=== PATIENT | female | born 1940 | race Caucasian/White ===

== ENCOUNTER 2022-06-19 11:23 | Inpatient (IN) | payer MEDICARE, SELFPAY ==
[2022-06-19] VITALS (14 sets, daily range): BP systolic 121–146; BP diastolic 64–92; PULSE 65–103; RESP 16–30; TEMP 36.9–38.1; O2SAT 89–96; BMI 20.2; BMI 20.8
--- NOTE | 2022-06-19 11:34 | ED_ITS ---
HPI - SOB/Dyspnea General: Chief Complaint: Fall Stated Complaint: Fall Time Seen by Provider: 06/19/22 11:25 Source: EMS Mode of arrival: EMS Limitations: altered mental status and other (Patient is nonverbal. Patient does follow instructions.) History of Present Illness: HPI Narrative: See nursing assessment. Patient is unable to give any history. She does follow directions low. History obtained from EMS. They report the patient has had generalized weakness increasing over the last several days. Reportedly according to EMS patient's last food intake was approximately 4 days ago. Patient had a temperature of 100.4 by EMS. Patient reportedly has been tachypneic with occasional nonproductive cough. They had difficulty obtaining pulse oximetry due to cool extremities. Their best oxygen saturation was 88% on room air. Patient is DNR according to family report. Capillary blood sugar prior to arrival was 158. Patient denies any pain. Patient denies any pain to the head chest or abdomen. She denies any pain in her extremities. According to EMS patient was found in bed and was unable to get out of bed without their assistance. Patient has had a couple falls recently due to generalized weakness. Patient reportedly lives alone. Past medical history includes hypertension. Medications include lisinopril HCTZ combination, Tylenol. Reportedly patient has no allergies to medications. Associated symptoms: Reports dizziness, extremity pain and fever(s); Deny abdominal pain, chest pain, nausea, palpitations or vomiting Treatment prior to arrival: other (Patient received normal saline 150 cc total volume prior to arrival) Review of Systems Const: Reports: fever(s), fatigue and malaise; Denies: chills Eyes: Denies: change in vision ENMT: Denies: throat pain Card: Denies: chest pain or palpitations Resp: Denies: dyspnea or wheezing GI: Denies: abdominal pain, nausea or vomiting : Denies: flank pain Musc: Reports: extremity pain and joint pain; Denies: neck pain, back pain, extremity swelling or joint swelling Skin/Breast: Denies: rash or pruritus Neuro: Reports: difficulty walking, dizziness and other (Generalized weakness); Denies: headache(s) or numbness in extremities Baron/Lymph: Denies: enlarged lymph nodes PFS ED PFSH: Medical History Allergic rhinitis History of hip fracture Surgical History H/O tubal ligation Family History Father Lung cancer Mother Cancer Sister Multiple sclerosis Brother Diabetes Social History (Updated 06/19/22 @ 15:17 by Juan F Thomas MD) Smoking and tobacco status: never smoked Lives independently: No Marital status: / Supplemental [facility] Information: Possible history includes hypertension. Physical Exam Const: COMMON NORMALS: alert (Patient is awake. However, patient is nonverbal.) EXAM LIMITATIONS: altered mental status GENERAL APPEARANCE: cooperative OTHER: She does shake her head for yes or no. Severe general malaise. Mild tachypnea HENMT: COMMON NORMALS: normocephalic and atraumatic HEAD & SCALP: normocephalic and atraumatic FACE & SINUS: normal facial exam OTHER: Membranes are dry Eye: COMMON NORMALS: EOMs intact bilaterally OTHER: Bilateral pupils reactive to direct and indirect light. Right pupil is approximately 5 to 6 mm in diameter. Left pupil is approximately 3 to 4 mm diameter. Patient denies any change in vision. Neck/C-Spine: COMMON NORMALS: full ROM, no lymphadenopathy, supple and no meningeal signs GENERAL: Yes normal visual inspection Lymph: LYMPHATIC: no lymphadenopathy noted Chest: COMMONS NORMALS: normal inspection of the chest and normal palpation of entire chest wall CHEST: No Ecchymosis present and No rash Resp: AUSCULTATION: other (Mild crackles left base. Otherwise clear; mild tachypnea) Cardio: COMMON NORMALS: regular rhythm and Peripheral pulses 2+ throughout JUGULAR VENOUS DISTENTION: no JVD RATE: tachycardic RHYTHM: regular rhythm PERIPHERAL PULSES: Peripheral pulses 2+ throughout OTHER: Mild tachycardia. No murmurs heard. GI: COMMON NORMALS: Normal to inspection, nondistended, normoactive bowel sounds present and non-tender : COMMON NORMALS: Yes no CVA tenderness BLADDER/KIDNEY EXAM: Yes no CVA tenderness Back/Pelvis: COMMON NORMALS: no CVA tenderness Extremity: COMMON NORMALS: normal to inspection and full ROM; negative for capillary refill normal OTHER: Capillary refill approximately 3 to 4 seconds. However, extremities are somewhat cool. Neuro: COMMON NORMALS: CN's II-XII intact bilaterally, no focal motor deficits and no sensory deficits noted SENSORIUM/ORIENTATION: Yes alert (Patient is awake. However, patient is nonverbal.) MENINGEAL SIGNS: Yes no meningeal signs Psych: OTHER: Patient is awake. She is nonverbal. She is able to move all her extremities. However, she has severe generalized weakness. She does follow commands. Skin: COMMON NORMALS: no rashes or lesions noted and no wounds GENERAL SKIN EXAM: no rashes or lesions noted Course Vital Signs: Vital signs: Vital Signs Pulse Rate 95 06/19/22 15:00 Respiratory Rate 27 H 06/19/22 15:00 Blood Pressure 143/88 06/19/22 15:00 Pulse Oximetry 89 L 06/19/22 11:40 MDM - SOB/Dyspnea Medical Decision Making Likely sepsis. Probably dehydration. Fluid bolus has been initiated greater than 30 cc/kg and Rocephin 2 g IV to meet sepsis protocol. 1230: Granddaughter has arrived. Granddaughter states the patient does live with her. Patient does not live alone. She reports patient started having nausea vomiting proximal a week ago. She states she stopped eating solid food about 5 days ago. She has been drinking boost and Pedialyte since then. She mackey s had increased generalized weakness over the past 2 days in which she would not get out of bed. Granddaughter states this morning she stopped talking to her and appeared to have increased general malaise and generalized weakness. She had less responsiveness this morning. Granddaughter does confirm that patient wishes to be DNR status. Granddaughter states the patient has been taking her medications daily. 1326: Discussed case with hospitalist Dr. Thomas. He has patient be admitted to the floor. He also asked that gallbladder ultrasound be done due to her elevated liver enzymes and to rule out cholecystitis. 1540: Patient reassessed. Patient is more alert now. She is still nonverbal. She is much more awake. Cap refill less than 2 seconds now. Telemetry shows heart rate 103 blood pressure 156/82 pulse oximetry 96% respiratory rate 26/min Gallbladder ultrasound showed cholelithiasis but no cholecystitis. Lab Data 06/19/22 11:30 06/19/22 11:30 Labs/Radiology: Radiology Impressions Chest X-Ray 06/19/22 11:35 Impression: Right lower lobe patchy opacity which may represent atelectasis, effusion and/or pneumonia. Head CT 06/19/22 11:40 Impression: Moderate cerebral atrophy. Gallbladder Ultrasound 06/19/22 13:28 Impression: Cholelithiasis. Laboratory Results WBC 18.0 10^3/uL (4.0-10.0) H 06/19/22 11:30 RBC 3.70 10^6/uL (4.1-5.3) L 06/19/22 11:30 Hgb 12.3 g/dL (11.5-15.3) 06/19/22 11:30 Hct 36.6 % (37.0-47.0) L 06/19/22 11:30 MCV 98.9 fl (81-99) 06/19/22 11:30 MCH 33.2 pg (28.0-34.0) 06/19/22 11:30 MCHC 33.6 g/dL (30.0-36.0) 06/19/22 11:30 RDW 12.7 % (12.1-15.1) 06/19/22 11:30 Plt Count 324 10^3/cmm (130-400) 06/19/22 11:30 MPV 11.5 fL (7.4-10.4) H 06/19/22 11:30 Neut % (Auto) 96.5 % 06/19/22 11:30 Lymph % (Auto) 1.9 % 06/19/22 11:30 Andrew % (Auto) 0.8 % 06/19/22 11:30 Eos % (Auto) 0.0 % 06/19/22 11:30 Baso % (Auto) 0.1 % 06/19/22 11:30 Neut # (Auto) 17.40 10^3/uL (1.8-7.7) H 06/19/22 11:30 Lymph # (Auto) 0.4 10^3/uL (0.8-4.8) L 06/19/22 11:30 Andrew # (Auto) 0.2 10^3/uL (0.2-0.9) 06/19/22 11:30 Eos # (Auto) 0.0 10^3/uL (0.0-0.8) 06/19/22 11:30 Baso # (Auto) 0.0 10^3/uL (0.0-0.1) 06/19/22 11:30 Nucleated RBC % (auto) 0 % 06/19/22 11:30 Nucleated RBCs # 0.0 /100WBC 06/19/22 11:30 Specimen Type Arterial 06/19/22 12:36 Sample Site Brachial, left 06/19/22 12:36 ABG pH 7.52 (7.35-7.45) H 06/19/22 12:36 ABG pCO2 35.1 mmHg (35-45) 06/19/22 12:36 ABG pO2 72.3 mmHg (80.0-100.0) L 06/19/22 12:36 ABG HCO3 28.5 mmol/L (22-26) H 06/19/22 12:36 ABG Base Excess 5.4 mmol/L (-2.0-2.0) H 06/19/22 12:36 Sam Test N/a 06/19/22 12:36 Hematocrit 32.5 % (37-47) L 06/19/22 12:36 O2 Delivery Device Nc 06/19/22 12:36 O2 Liters/Min 4.0 % 06/19/22 12:36 FiO2 36.0 % 06/19/22 12:36 Enterprise Resource Planner ID Amh 06/19/22 12:36 Sodium 144 mmol/L (136-145) 06/19/22 11:30 Potassium 2.9 mmol/L (3.5-5.1) L 06/19/22 11:30 Chloride 96 mmol/L (98-107) L 06/19/22 11:30 Carbon Dioxide 27 mmol/L (22-29) 06/19/22 11:30 Anion Gap 23.9 (5-19) H 06/19/22 11:30 BUN 94 mg/dL (8-23) H* 06/19/22 11:30 Creatinine 1.8 mg/dL (0.5-0.9) H 06/19/22 11:30 GFR Calculation Not Reportable 06/19/22 11:30 Glucose 118 mg/dL (65-115) H 06/19/22 11:30 Calculated Osmolality 328 mOsm/kg (285-295) H 06/19/22 11:30 Lactic Acid 5.4 mmol/L (0.5-2.2) H* 06/19/22 13:08 Calcium 10.8 mg/dL (8.5-10.5) H 06/19/22 11:30 Total Bilirubin 1.8 mg/dL (0.15-1.2) H 06/19/22 11:30 AST 157 U/L (0-32) H 06/19/22 11:30 ALT 124 U/L (0-33) H 06/19/22 11:30 Alkaline Phosphatase 318 U/L (35-105) H 06/19/22 11:30 Total Protein 8.2 g/dL (6.6-8.7) 06/19/22 11:30 Albumin 2.8 g/dL (3.5-5.2) L 06/19/22 11:30 Globulin 5.4 g/dL (1.3-4.6) H 06/19/22 11:30 Urine Color Yellow (Yellow) 06/19/22 12: Urine Appearance Hazy (CLEAR) A 06/19/22 12:29 Urine pH 5 (5-7) 06/19/22 12: Ur Specific [place] 1.005 (1.005-1.030) 06/19/22 12: Urine Protein 1+ (Negative) H 06/19/22 12: Urine Glucose (UA) Norm (Normal) 06/19/22 12:29 Urine Ketones Negative (Negative) 06/19/22 12: Urine Blood 3+ (Negative) H 06/19/22 12: Urine Nitrate Negative (Negative) 06/19/22 12: Urine Bilirubin Neg (Negative) 06/19/22 12:29 Urine Urobilinogen 1 mg/dL (Negative) H 06/19/22 12:29 Ur Leukocyte Esterase Negative (Negative) 06/19/22 12: Urine RBC 15-25 /hpf (0-2) H 06/19/22 12:29 Urine WBC 0-4 /hpf (0-5) H 06/19/22 12:29 Ur Squamous Epith Cells 0-4 /hpf (0-5) H 06/19/22 12: Amorphous Sediment Not Reportable 06/19/22 12:29 Urine Bacteria 4+ /hpf (NONE) H 06/19/22 12:29 Acetaminophen < 5.0 ug/mL (10-30) L 06/19/22 11:30 Hepatitis A IgM Ab Non-reactive (Nonreactive) 06/19/22 11:30 Hep Bs Antigen Non-reactive (Nonreactive) 06/19/22 11:30 Hep B Core IgM Ab Non-reactive (Nonreactive) 06/19/22 11:30 Hepatitis C Antibody Non-reactive (Nonreactive) 06/19/22 11:30 Influenza Type A Ag Negative (Negative) 06/19/22 13:20 Influenza Type B Ag Negative (Negative) 06/19/22 13:20 SARS-CoV-2 Ag (Rapid) negative (Negative) 06/19/22 13:20 Imaging Data CXR: My impression: Right lower lobe pneumonia Radiologist's impression: Ordering Provider/Ordering MD: Yadiel Vieyra MD Date of Service: 06/19/22 Procedure(s): XR chest 1V portable [id number] Accession Number(s): [id number] Report Number: [id number] WS: [email or web address] Portable AP semiupright chest, 06/19/2022 Clinical Data: Cough, tachypnea, fever Comparison: None. Findings: There is a right lower lobe patchy opacity which may represent combination of atelectasis, effusion and pneumonia. The left lung is clear. The heart is normal. The aortic arch and descending thoracic aorta show tortuosity. No pneumothorax is seen. The pulmonary vascularity is not increased. Monitor leads are on the chest wall. XR/XR chest 1V portable [id number] Impression: Right lower lobe patchy opacity which may represent atelectasis, effusion and/or pneumonia. ? ? Dictated By: Purvi Akbar MD Signed By: Purvi Akbar MD Signed Date/Time: 06/19/22 1314 DD/ 1313 CT Head: Radiologist's impression: Ordering Provider/Ordering MD: Yadiel Vieyra MD Date of Service: 06/19/22 Procedure(s): CT head wo con* 11716 Accession Number(s): [id number] Report Number: [id number] WS: [id number] CT scan of the head, 06/19/2022 Clinical Data: Altered level consciousness, recent fall Comparison: None. DLP: 1063.[address] scans at [facility] use at least one of these dose optimization techniques: automated exposure control; mA and/or kV adjustment per patient size (includes targeted exams where dose is matched to clinical indication); or iterative reconstruction. Findings: The ventricular system is moderately dilated without shift. The sulci are enlarged. No recent infarct or hemorrhage is seen. There are no abnormal intracerebral masses. The cerebellum and brainstem are not remarkable. Bony windows of the skull and skull base show no fractures or erosions. The mastoid air cells, internal auditory canals, sella turcica, intraorbital contents, and paranasal sinuses are unremarkable. CT/CT head wo con* [id number] Impression: Moderate cerebral atrophy. ? Dictated By: Purvi Akbar MD Signed By: Purvi Akbar MD Signed Date/Time: 06/19/22 1213 DD/ 1211 US: Radiologist's impression: Ordering Provider/Ordering MD: Yadiel Vieyra MD Date of Service: 06/19/22 Procedure(s): US gall bladder 13790 Accession Number(s): [id number] Report Number: [id number] WS: [email or web address] Gallbladder and right upper quadrant ultrasound, 06/19/2022 Clinical Data: Elevated liver enzymes, rule out cholecystitis, fever Comparison: None. Findings: The gallbladder shows numerous small stones. The wall measures 0.2 cm with no pericholecystic fluid. The common bile duct is 0.33 cm and there are no intrahepatic ductal abnormalities. Liver shows no cysts, masses or dilated intrahepatic ducts. Normal portal venous flow is noted. The pancreas is not obscured by overlying bowel gas and no cyst, pseudocyst, or evidence of pancreatitis is noted. Right kidney measures 9.6 cm and no cyst, masses or hydronephrosis can be seen. The aorta and inferior vena cava show no vascular abnormalities. US/US gall bladder [id number] Impression: Cholelithiasis. ? Dictated By: Purvi Akbar MD Signed By: Purvi Akbar MD Signed Date/Time: 06/19/22 1511 DD/ 1508 EKG Data EKG 1: I personally reviewed and interpreted this EKG as follows: EKG Interpretation Date: 06/19/22 EKG interpretation time: 11:44 Prior EKG tracings: not available for review Interpretation: If she shows sinus tachycardia heart rate 103. Left atrial enlargement. Normal axis. Normal QRS. Normal ST segment. Normal MA interval, QT interval .348 seconds ABG Data ABG Interpretation 1: ABG results: Respiratory alkalosis Critical Care Time Critical Care Time: Critical Care Time: Yes Total Critical Care Time: 70 Attestation: See orders. Discharge Plan Discharge Patient Disposition: Admitted As Inpatient Clinical Impression: Acute kidney injury, Chronic hypokalemia, Transaminitis, Community acquired pneumonia of right lower lobe of lung Sepsis Qualifiers: Sepsis type: sepsis due to unspecified organism Sepsis acute organ dysfunction status: with acute organ dysfunction Severe sepsis acute organ dysfunction type: acute renal failure Acute renal failure type: unspecified Severe sepsis shock status: without septic shock Qualified Code(s): A41.9 - Sepsis, unspecified or ganism Urinary tract infection Qualifiers: Urinary tract infection type: site unspecified Hematuria presence: without hematuria Qualified Code(s): N39.0 - Urinary tract infection, site not specified Condition: Stable Coding Level of Care Code ED Systems Security Analyst for Chg Fwd History Comprehensive Exam Comprehensive Medical Decision Making High Complexity
--- NOTE | 2022-06-19 11:35 | ECG_ITS ---
[facility] Test Date: 2022-06-19 Pat Name: Farrah Velez Department: Room: Gender: Female Rfp Writer: : 1940 Requested By: Yadiel Noble Order Number: [id number] Kamaljit MD: Bharati Pulido M.D. Measurements Intervals Mary D Rate: 103 P: 61 OK: 129 QRS: 49 QRSD: 93 T: 57 QT: 348 QTc: 456 Interpretive Statements SINUS TACHYCARDIA POSSIBLE LEFT ATRIAL ENLARGEMENT [-0.1mV P-WAVE IN V1/V2] INCOMPLETE RIGHT BUNDLE BRANCH BLOCK [90+ ms QRS DURATION, TERMINAL R IN V1/V2, 40+ ms S IN I/aVL/V4/V5/V6] ABNORMAL RHYTHM ECG No previous ECG available for comparison Electronically Signed On 06-19-2022 13:06:27 EQUITY MANAGER by Bharati Pulido M.D. [email or web address]
--- NOTE | 2022-06-19 11:35 | XR_ITS ---
WS: [email or web address] Portable AP semiupright chest, 06/19/2022 Clinical Data: Cough, tachypnea, fever Comparison: None. Findings: There is a right lower lobe patchy opacity which may represent combination of atelectasis, effusion and pneumonia. The left lung is clear. The heart is normal. The aortic arch and descending t horacic aorta show tortuosity. No pneumothorax is seen. The pulmonary vascularity is not increased. M onitor leads are on the chest wall. XR/XR chest 1V portable [id number] Impression: Right lower lobe patchy opacity which may represent atelectasis, effusion and/o r pneumonia.
--- NOTE | 2022-06-19 11:40 | CT_ITS ---
WS: [email or web address] CT scan of the head, 06/19/2022 Clinical Data: Altered level consciousness, recent fall Comparison: None. DLP: 1063.[address] scans at [facility] use at least one of these dose optimization techniques: automated e xposure control; mA and/or kV adjustment per patient size (includes targeted exams where dose is matc hed to clinical indication); or iterative reconstruction. Findings: The ventricular system is moderately dilated without shift. The sulci are enlarged. No recent infarct or hemorrhage is seen. There are no abnormal intracerebral masses. The cerebellum and brainstem are not remarkable. Bony windows of the skull and skull base show no fractures or erosions. The mastoid air cells, partner marketing intern al auditory canals, sella turcica, intraorbital contents, and paranasal sinuses are unremarkable. CT/CT head wo con* 10040 Impression: Moderate cerebral atrophy.
--- NOTE | 2022-06-19 11:45 | PC.NURSE ---
discharge assessment and charges charted on 06/19/22 1144 where charted in Error wrong patient selected
[2022-06-19 11:56] LABS: Basophils % 0.1 %; Hematocrit 36.6 % (37.0-47.0); Hemoglobin 12.3 g/dL (11.5-15.3); Lymphocytes # 0.4 10^3/uL (0.8-4.8); Lymphocytes % 1.9 %; Mean Corpuscular HGB Conc 33.6 g/dL (30.0-36.0); Mean Corpuscular Hemoglobin 33.2 pg (28.0-34.0); Mean Corpuscular Volume 98.9 fl (81-99); Mean Platelet Volume 11.5 fL (7.4-10.4); Monocytes # 0.2 10^3/uL (0.2-0.9); Monocytes % 0.8 %; Neutrophils % 96.5 %; Nucleated Red Blood Cells % 0 %; Platelet Count 324 10^3/cmm (130-400); Red Cell Distribution Width 12.7 % (12.1-15.1)
[2022-06-19] MEDS: sodium chloride 0.9% 1,000 ML 999 ML IV ×2 (12:00→13:32)
--- NOTE | 2022-06-19 12:01 | PC.NURSE ---
Family stated that they got sick around the with a stomach bug. Then the patient got sick with the same thing last weakend and she slowly stopped eating and has not been herself since.
[2022-06-19 12:08] LABS: Alanine Aminotransferase 124 U/L (0-33); Albumin Level 2.8 g/dL (3.5-5.2); Alkaline Phosphatase 318 U/L (35-105); Anion Gap 23.9 (5-19); Aspartate Amino Transferase 157 U/L (0-32); Calcium 10.8 mg/dL (8.5-10.5); Carbon Dioxide 27 mmol/L (22-29); Chloride 96 mmol/L (98-107); Globulin 5.4 g/dL (1.3-4.6); Glucose 118 mg/dL (65-115); Osmolality Calculated 328 mOsm/kg (285-295); Sodium 144 mmol/L (136-145); Total Bilirubin 1.8 mg/dL (0.15-1.2); Total Protein 8.2 g/dL (6.6-8.7)
[2022-06-19 12:14] LABS: Potassium 2.9 mmol/L (3.5-5.1)
[2022-06-19 12:15] LABS: Acetaminophen < 5.0 ug/mL (10-30); Blood Urea Nitrogen 94 mg/dL (8-23)
[2022-06-19 12:18] LABS: Slide Review Slide Review Perform
[2022-06-19 12:47] LABS: ABG PCO2 35.1 mmHg (35-45); ABG PH Result 7.52 (7.35-7.45); Arterial Blood Gas Hematocrit 32.5 % (37-47); Base Excess ABG 5.4 mmol/L (-2.0-2.0); Blood Gas Operator Identificat AMH; Blood Gas Sample Site Brachial, left; Blood Gas Sample Type Arterial; HCO3 ABG 28.5 mmol/L (22-26); Oxygen Device NC; PO2 ABG 72.3 mmHg (80.0-100.0)
[2022-06-19] MEDS: cefTRIAXone 2,000 MG in sodium chloride 0.9% (plus) 50 ML 100 MG IV (12:54)
[2022-06-19 12:59] LABS: Glucose Urine UA Norm (Normal); Protein Urine 1+ (Negative); Specific Gravity, Urine 1.005 (1.005-1.030); Urine Appearance Hazy (CLEAR); Urine Color Yellow (Yellow); pH Urine 5 (5-7)
[2022-06-19 13:00] LABS: Add Urine Culture? Yes; Bacteria Urine 4+ /hpf; Bilirubin Urine Neg (Negative); Blood Urine 3+ (Negative); Ketones Urine Negative (Negative); Leukocyte Esterase Urine Negative (Negative); Nitrate Urine Negative (Negative); RBC Urine 15-25 /hpf (0-2); Squamous Epithelial Cell Urine 0-4 /hpf (0-5); Urobilinogen Urine 1 mg/dL (Negative); WBC Urine 0-4 /hpf (0-5)
[2022-06-19] MEDS: potassium chloride premix 100 ML 50 MEQ IV (13:08)
[2022-06-19 13:13] LABS: Hepatitis A Antibody IgM Non-Reactive (Nonreactive); Hepatitis B Core IgM Non-Reactive (Nonreactive); Hepatitis B Surface Antigen Non-Reactive (Nonreactive); Hepatitis C Virus Antibody Non-Reactive (Nonreactive)
--- NOTE | 2022-06-19 13:28 | US_ITS ---
WS: [email or web address] Gallbladder and right upper quadrant ultrasound, 06/19/2022 Clinical Data: Elevated liver enzymes, rule out cholecystitis, fever Comparison: None. Findings: The gallbladder shows numerous small stones. The wall measures 0.2 cm with no pericholecystic fluid. The common bile duct is 0.33 cm and there are no intrahepatic ductal abnormalities. Liver shows no cysts, masses or dilated intrahepatic ducts. Normal portal venous flow is noted. The pancreas is not obscured by overlying bowel gas and no cyst, pseudocyst, or evidence of pancreati tis is noted. Right kidney measures 9.6 cm and no cyst, masses or hydronephrosis can be seen. The aorta and inferior vena cava show no vascular abnormalities. US/US gall bladder [id number] Impression: Cholelithiasis.
[2022-06-19] MEDS: azithromycin 500 MG in sodium chloride 0.9% 250 ML 250 MG IV (13:33)
[2022-06-19 13:45] LABS: Lactic Sepsis W/Reflex 5.4 mmol/L (0.5-2.2)
[2022-06-19 13:52] LABS: SARS Covid-2 Antigen negative (Negative)
[2022-06-19 13:55] LABS: Influenza A by IFA Negative (Negative); Influenza B by IFA Negative (Negative)
[2022-06-19 15:00] LABS: Reflex Lactate Order REFLEX LACTIC ORDERD
--- NOTE | 2022-06-19 15:15 | P.HP_ITS ---
Providers/Chief Complaint Primary Care Provider: Rashawn Reed MD Chief Complaint: Fall History of Present Illness 81-year-old lady without much medical history apart from hypertension, only on hypertension medicine, over the last 4 to 5 days has gotten progressively more ill, weaker, has had chronic cough, but it has gotten worse recently, she had eventually stopped being able to get up from bed or speak, and then even unable to eat or drink so was brought to the ER for evaluation. Granddaughter reports prior to that she had a viral illness with diarrhea about a week ago. Her granddaughter denies any past history of stroke or NM. She has noticed that her mother's pupils been unequal probably for about 4-5 days, denies any prior eye surgery. CT head in ER with moderate cerebral atrophy. Patient herself is unable to provide any history, provides very limited review of systems by nodding, although not always, not always following directions. In ER she is newly requiring 3 L nasal cannula oxygen. Respiratory rate 28-30. ABG 7.5 2/35/72.3/28.5. Additional work-up in ER showed leukocytosis 18,000, potassium 2.9, chloride 96, anion gap 23.9, lactic acid 5.4, BUN 94, creatinine 1.8, calcium 10.8, T bili 1.8, AST 157, ALT 124, alk phos 318. UA with 15-25 RBC, 0- 4 WBC. 4+ bacteria. Acute hepatitis panel negative. Rapid COVID-19 antigen negative. Rapid influenza antigen negative. CT head with moderate cerebral atrophy. Chest x-ray with right lower lobe patchy opacity which may represent atelectasis, effusion and/or pneumonia. Granddaughter tells me she also has had chronic problems with one of her legs she is suspected right lower extremity which is also noted with purplish discoloration of the foot. Regards to CODE STATUS, granddaughter states that they previously had discussion she would not want aggressive care including intubation, CPR. Review of Systems General: Reports: ROS unobtainable due to medical condition and ROS unobtainable due to mental status Medications/Allergies Home Medications Medication Instructions Recorded Confirmed Last Taken Type acetaminophen 325 mg capsule 325 mg PO QID PRN Pain 06/19/22 06/19/22 Unknown History (Tylenol) calcium carbonate 600 mg-vitamin 1 tab PO BID 06/19/22 06/19/22 Unknown History D3 10 mcg (400 unit) tablet (Calcium 600 + D(3)) chlorpheniramine 2 1 tab PO Q4H PRN Congestion 06/19/22 06/19/22 Unknown History mg-pseudoephedrin 30 mg-acetaminophen 500 mg tablet dimenhydrinate 50 mg tablet 50 mg PO Q8H PRN Nausea 06/19/22 06/19/22 Unknown History (Motion Sickness) docusate sodium 100 mg tablet 100 mg PO DAILY PRN Constipation 06/19/22 06/19/22 Unknown History lisinopril 10 1 tab PO DAILY 06/19/22 06/19/22 Unknown History mg-hydrochlorothiazide 12.5 mg tablet loperamide 2 mg capsule 2 mg PO Q6H PRN Diarrhea 06/19/22 06/19/22 Unknown History sodium chloride 0.65 % nasal spray 1 spray intranasal BID PRN 06/19/22 06/19/22 Unknown History aerosol ([place] Saline) Congestion Allergies Allergy/AdvReac Type Severity Reaction Status Date / Time No Known Allergies Allergy Verified 06/19/22 11:56 PFSH Acute PFSH: Medical History Allergic rhinitis History of hip fracture Surgical History H/O tubal ligation Family History Father Lung cancer Mother Cancer Sister Multiple sclerosis Brother Diabetes Social History (Updated 06/19/22 @ 15:17 by Juan F Thomas MD) Smoking and tobacco status: never smoked Lives independently: No Marital status: / Vitals/I&O/Wt Last Vital Signs Pulse 96 06/19/22 13:30 Resp 30 H 06/19/22 13:30 BP 146/92 06/19/22 13:30 Pulse Ox 89 L 06/19/22 11:40 06/19/22 06/19/22 06/19/22 06:59 14:59 22:59 Intake Total 1050 / 1050 Balance 1050 / 1050 Weight last 48 hrs Weight 45.359 kg Physical Exam Narrative: Granddaughter at bedside. Const: COMMON NORMALS: alert OTHER: She is awake, but answers questions only sometimes and only by nodding. No nverbal. Follows some commands, but inconsistently. HENMT: COMMON NORMALS: oropharynx normal Neck/C-Spine: COMMON NORMALS: no JVD Resp: COMMON NORMALS: normal respiratory effort and clear to auscultation bilaterally AUSCULTATION: clear to auscultation bilaterally Cardio: COMMON NORMALS: no JVD, regular rhythm, S1 normal heart sound present, S2 normal heart sound present and No murmurs present (Cardio) RHYTHM: regular rhythm HEART SOUNDS: S1 normal heart sound present and S2 normal heart sound present GI: COMMON NORMALS: Normal to inspection, nondistended, normoactive bowel sounds present, Soft to palpation and non-tender PALPATION: Yes Soft to palpation Extremity: COMMON NORMALS: no joint enlargement and no pedal edema Neuro: COMMON NORMALS: moves all extremities SENSORIUM/ORIENTATION: Yes alert Skin: COMMON NORMALS: no rashes or lesions noted GENERAL SKIN EXAM: no rashes or lesions noted OTHER: BL feet cool to touch. Left foot biphasic DP and PT. Right foot monophasic DP and PT pulses present. Right foot purplish discoloration patches. Medial inferior aspect. Urinary Catheter Management: Coburn: Cath Placed During This Visit: yes Urinary Catheter Date of Insertion: 06/19/22 Urinary Catheter Time of Insertion: 12:50 Sepsis: Is patient septic: Yes Focused sepsis exam performed: Yes Data 06/19/22 11:30 06/19/22 11:30 Micro: Microbiology 06/19/22 12:50 Blood Culture - Preliminary Blood SPECIMEN COLLECTED 06/19/22 12:38 Blood Culture - Preliminary Blood SPECIMEN COLLECTED A&P Assessment and plan (1) Sepsis: Severe sepsis, lactic acidosis 5.4. With endorgan injury with KATHRYN. Leukocytosis 18. Tachycardia 95. Due to pneumonia. Possible other source. Continue empiric antibiotic coverage, will change antibiotics to cefepime, vancomycin. Assess gallbladder ultrasound. Qualifiers: Acute renal failure type: unspecified Sepsis acute organ dysfunction status: with acute organ dysfunction Sepsis type: sepsis due to unspecified organism Severe sepsis acute organ dysfunction type: acute renal failure Severe sepsis shock status: without septic shock Qualified Code(s): A41.9 - Sepsis, unspecified organism; R65.20 - Severe sepsis without septic shock; N17.9 - Acute kidney failure, unspecified (2) Pneumonia: She will not be able to provide sputum cultures. Will obtain urine bacterial antigens. MRSA PCR.. Antibiotics as above. Rapid influenza, rapid COVID-19 negative. (3) Total bilirubin, elevated: GB US. Complete antibiotics as above. On exam Bautista negative. (4) Microscopic hematuria: May be traumatic following Coburn insertion. Follow-up urine culture. Follow-up outpatient for resolution. (5) Transaminitis: Secondary to severe sepsis. Acute hepatitis panel negative. (6) Aphasia: ST evlisa.-year-old may benefit from additional evaluation by MRI, discussed with her granddaughter high suspicion that she may have had a CVA over the last week at some point. Noted anisocoria. He otherwise does appear to move all extremities. Unable to examine further as she is not cooperating enough. CT of the head was unremarkable. Start aspirin, statin. Obtain carotid duplex. ST evaluation. (7) Acute kidney injury: Secondary to severe sepsis. Also on lisinopril-HCTZ at home. Component of dehydration. Hold lisinopril-HCTZ. Received fluid challenge. Reassess renal function. (8) Anisocoria: Granddaughter states noticed 4-5 days ago. No history of eye surgery. Measured intraocular pressure 8 mmHg. Pupils reactive directly and reciprocally. He had unremarkable. Obtain carotid duplex. Follow-up with ophthalmology. (9) PAD (peripheral artery disease): Cool to touch bilateral feet, biphasic pulses PT and DP on the left. Right side monophasic PT and DP. Pulses present. Patches of discoloration of the foot. Start aspirin, statin. Will need additional outpatient evaluation. Granddaughter states she has had chronic issues with the right leg. Plan Dehydration: Progressively getting weaker at home and so could not eat or drink. Received 2 L fluid challenge. Reassess. HTN: Hold home medications for now. Hypokalemia: Replaced Attestations Medical Necessity Statement*: Admission of over 2 midnights anticipated for as sessment management of severe sepsis. Coding Level of Care Code Acute Outsole Scheduler for [facility] Fwd Exam Comprehensive Diagnoses Sepsis A41.9; R65.20; N17.9 Acute renal failure type: unspecified Sepsis acute organ dysfunction status: with acute organ dysfunction Sepsis type: sepsis due to unspecified organism Severe sepsis acute organ dysfunction type: acute renal failure Severe sepsis shock status: without septic shock Pneumonia J18.9 Total bilirubin, elevated R17 Microscopic hematuria R31.29 Transaminitis R74.01 Aphasia R47.01 Acute kidney injury N17.9 Anisocoria H57.02 PAD (peripheral artery disease) I73.9
--- NOTE | 2022-06-19 15:41 | USR_ITS ---
PROCEDURE INFORMATION: Exam: US Duplex Bilateral Extracranial Arteries, Carotid Arteries Exam date and time: 06/19/2022 5:39 PM Age: 81 years old Clinical indication: Speech disturbance; Aphasia; Additional info: Aphasia, anisocoria TECHNIQUE: Imaging protocol: Real-time Duplex ultrasound scan of the bilateral carotid and vertebral arteries combining carmona scale, color Doppler and spectral waveform analysis. Bilateral exam. Exam focused on the carotid arteries. COMPARISON: CT head wo con* [id number] 06/19/2022 12:03 PM FINDINGS: Right common carotid artery: Unremarkable. No occlusion or stenosis. Waveforms are normal. Right internal carotid artery: Proximal calcified plaque. No elevated velocity. Waveforms are normal. Right ICA/CCA ratio: Within normal limits. Right external carotid artery: No stenosis in the origin. Right vertebral artery: Unremarkable. Antegrade flow. Left common carotid artery: Unremarkable. No occlusion or stenosis. Waveforms are normal. Left internal carotid artery: Proximal calcified plaque. No elevated velocity. Waveforms are normal. Left ICA/CCA ratio: Within normal limits. Left external carotid artery: No stenosis in the origin. Left vertebral artery: Unremarkable. Antegrade flow. US/CV carotid duplex BI* [id number] IMPRESSION: 1. Mild calcified plaque in the proximal internal carotid arteries with less than 50% stenosis based on SRU criteria. REFERENCES: SRU CRITERIA. The degree of internal carotid artery stenosis is based on criteria defined by the Society of Radiologists in Ultrasound (SRU). Normal is no stenosis. Mild is less than 50% stenosis. Moderate is 50-69% stenosis. Severe is greater than 69% stenosis to near occlusion. Near occlusion is a markedly narrowed lumen. Total occlusion is no detectable patent lumen.
[2022-06-19 16:46] LABS: Lactic Acid level (Lactate) 2.2 mmol/L (0.5-2.2)
[2022-06-19] MEDS: dextrose 5%-sod chloride 0.45% 1,000 ML 125 ML IV (17:00)
[2022-06-19] MEDS: pantoprazole 40 mg SDV IVP (17:06)
[2022-06-19] MEDS: enoxaparin 40 mg/0.4 mL Syringe SUBCUT (17:09)
[2022-06-19] MEDS: vancomycin 500 MG in sodium chloride 0.9% (plus) 100 ML 200 MG IV (17:13)
[2022-06-19] MEDS: cefepime 1,000 MG in sodium chloride 0.9% (plus) 50 ML 100 MG IV (17:52)
[2022-06-20] VITALS (8 sets, daily range): BP systolic 137–170; BP diastolic 69–82; PULSE 77–99; RESP 16–26; TEMP 36.7–37.2; O2SAT 90–98
[2022-06-20] MEDS: cefepime 1,000 MG in sodium chloride 0.9% (plus) 50 ML 100 MG IV ×2 (04:46→15:40)
[2022-06-20 06:06] LABS: Basophils % 0.1 %; Hematocrit 29.2 % (37.0-47.0); Hemoglobin 9.9 g/dL (11.5-15.3); Lymphocytes # 0.3 10^3/uL (0.8-4.8); Lymphocytes % 2.5 %; Mean Corpuscular HGB Conc 33.9 g/dL (30.0-36.0); Mean Corpuscular Hemoglobin 33.7 pg (28.0-34.0); Mean Corpuscular Volume 99.3 fl (81-99); Mean Platelet Volume 11.3 fL (7.4-10.4); Monocytes # 0.2 10^3/uL (0.2-0.9); Monocytes % 1.2 %; Neutrophils # 12.82 10^3/uL (1.8-7.7); Neutrophils % 95.2 %; Nucleated Red Blood Cells % 0.1 %; Platelet Count 289 10^3/cmm (130-400); Red Blood Count 2.94 10^6/uL (4.1-5.3); Red Cell Distribution Width 12.9 % (12.1-15.1); White Blood Count 13.5 10^3/uL (4.0-10.0)
[2022-06-20 07:08] LABS: Alanine Aminotransferase 72 U/L (0-33); Albumin Level 1.8 g/dL (3.5-5.2); Alkaline Phosphatase 196 U/L (35-105); Anion Gap 14.3 (5-19); Aspartate Amino Transferase 110 U/L (0-32); Blood Urea Nitrogen 63 mg/dL (8-23); Calcium 8.7 mg/dL (8.5-10.5); Carbon Dioxide 26 mmol/L (22-29); Chloride 111 mmol/L (98-107); Globulin 4.1 g/dL (1.3-4.6); Glucose 150 mg/dL (65-115); Osmolality Calculated 329 mOsm/kg (285-295); Sodium 149 mmol/L (136-145); Total Bilirubin 0.8 mg/dL (0.15-1.2); Total Protein 5.9 g/dL (6.6-8.7)
[2022-06-20] MEDS: dextrose 5%-sod chloride 0.45% 1,000 ML 125 ML IV (07:13)
[2022-06-20 07:34] LABS: Potassium 2.3 mmol/L (3.5-5.1)
[2022-06-20] MEDS: aspirin 300 mg Supp PR (09:03)
[2022-06-20 09:17] LABS: Bacillus cereus group Not Detected (NOT DETECT); Bacillus subtillis group Not Detected (NOT DETECT); Corynebacterium Not Detected (NOT DETECT); Cutibacterium acnes (P.acnes) Not Detected (NOT DETECT); Enterococcus Not Detected (NOT DETECT); Enterococcus faecalis Not Detected (NOT DETECT); Enterococcus faecium Not Detected (NOT DETECT); Lactobacillus species Not Detected (NOT DETECT); Listeria Not Detected (NOT DETECT); Listeria monocytogenes Not Detected (NOT DETECT); Micrococcus Not Detected (NOT DETECT); Pan Candida Not Detected (NOT DETECT); Pan Gram-Negative Not Detected (NOT DETECT); Staphylococcus epidermidis Not Detected (NOT DETECT); Staphylococcus lugdunensis Not Detected (NOT DETECT); Staphylococcus species Not Detected (NOT DETECT); Streptococcus agalactiae Not Detected (NOT DETECT); Streptococcus anginosus group Not Detected (NOT DETECT); Streptococcus pneumoniae Detected (NOT DETECT); Streptococcus pyogenes Not Detected (NOT DETECT); Streptococcus species Detected (NOT DETECT)
[2022-06-20] MEDS: lidocaine 1% 5 ML in potassium chloride premix 100 ML 25 ML IV (11:28)
[2022-06-20] MEDS: pantoprazole 40 mg SDV IVP (15:47)
[2022-06-20] MEDS: enoxaparin 40 mg/0.4 mL Syringe SUBCUT (15:47)
--- NOTE | 2022-06-20 20:22 | P.PN_ITS ---
Subjective Subjective: Today she is more alert. Responding to my questions. Denies pain or discomfort. Denies headache. Does not always answer, does not always follow directions. Vitals/I&O/Wt Last Vital Signs Temp 98.1 F 06/20/22 16:00 Pulse 87 06/20/22 20:12 Resp 16 06/20/22 20:12 BP 151/79 06/20/22 16:00 Pulse Ox 96 06/20/22 20:12 O2 Del Method 06/20/22 20:12 O2 Flow Rate 3 06/20/22 20:12 06/20/22 06/20/22 06/20/22 06:59 14:59 22:59 Intake Total 20 / 2570 1050 / 1050 155 / 1205 Output Total 1550 / 1550 Balance -1530 / 1020 1050 / 1050 155 / 1205 Weight last 48 hrs Weight 50.666 kg Weight 51.619 kg Weight 45.359 kg Physical Exam Narrative: Family at bedside. Const: COMMON NORMALS: alert OTHER: She is awake, but answers some questions. HENMT: COMMON NORMALS: oropharynx normal Eye: OTHER: Yesterday anisocoria, R>L, reactive. Neck/C-Spine: COMMON NORMALS: no JVD Resp: COMMON NORMALS: normal respiratory effort and clear to auscultation bilaterally AUSCULTATION: clear to auscultation bilaterally Cardio: COMMON NORMALS: no JVD, regular rhythm, S1 normal heart sound present, S2 normal heart sound present and No murmurs present (Cardio) RHYTHM: regular rhythm HEART SOUNDS: S1 normal heart sound present and S2 normal heart sound present GI: COMMON NORMALS: Normal to inspection, nondistended, normoactive bowel sounds present, Soft to palpation and non-tender PALPATION: Yes Soft to palpation Extremity: COMMON NORMALS: no joint enlargement and no pedal edema Neuro: COMMON NORMALS: moves all extremities SENSORIUM/ORIENTATION: Yes alert OTHER: Right lower extremity drift. Both lower extremities weak dropping to bed, but right side without effort against gravity. Skin: COMMON NORMALS: no rashes or lesions noted GENERAL SKIN EXAM: no rashes or lesions noted OTHER: BL feet cool to touch. Left foot biphasic DP and PT. Right foot monophasic DP and PT pulses present. Right foot purplish discoloration patches. Medial inferior aspect. Urinary Catheter Management: Coburn: Cath Placed During This Visit: yes Reason for Continuing Indwelling Catheter: Acute Urinary Retention or Obstruction Urinary Catheter Date of Insertion: 06/19/22 Urinary Catheter Time of Insertion: 12:50 Data 06/20/22 05:27 06/20/22 06:31 Micro: Microbiology 06/19/22 12:38 Blood Culture - Preliminary Blood NEGATIVE TO DATE 06/19/22 12:29 Urine Culture - Preliminary Urine,Clean Catch 06/19/22 12:50 Blood Culture - Preliminary Blood Streptococcus pneumoniae 06/19/22 18:00 MRSA Culture - Final Nose A&P Assessment and plan (1) Sepsis: Discussed with family reported gram-positive bacteria on gram stain. Culture appears to be coming back with strep pneumo. Suspect secondary to pneumonia. Improving. Leukocytosis improving. Tachycardia resolved. Mental status im proving. Transaminitis improving. Renal function improving. Change cefepime to ceftriaxone with next dose. MRSA PCR negative. Stop vancomycin. Cholelithiasis on gallbladder ultrasound. Urine cultures so far without growth. Qualifiers: Acute renal failure type: unspecified Sepsis acute organ dysfunction status: with acute organ dysfunction Sepsis type: sepsis due to unspecified organism Severe sepsis acute organ dysfunction type: acute renal failure Severe sepsis shock status: without septic shock Qualified Code(s): A41.9 - Sepsis, unspecified organism; R65.20 - Severe sepsis without septic shock; N17.9 - Acute kidney failure, unspecified (2) Pneumonia: Complicated pneumonia with strep pneumo bacteremia. Continue ceftriaxone. Assess valves on limited TTE. She will not be able to provide sputum cultures. Pending urine bacterial antigens. Antibiotics as above. Rapid influenza, rapid COVID-19 negative. (3) Total bilirubin, elevated: GB US with cholelithiasis. Complete antibiotics as above. On exam Bautista negative. (4) Microscopic hematuria: May be traumatic following Coburn insertion. Follow-up urine culture. Follow-up outpatient for resolution. (5) Transaminitis: Secondary to severe sepsis. Acute hepatitis panel negative. (6) Aphasia: Dysphagia, aphasia, discussed with family possibility of CVA. Would benefit from MRI at some point. For now continue reassessment with ST as did not do well today, not safe for oral intake. He is able to participate a bit better, noted right side drift. Continue aspirin CA. PT, OT. CT of the head was unremarkable. Start aspirin, statin. Carotid duplex with less than 50% stenosis in the proximal internal carotid arteries. Mild plaque. (7) Acute kidney injury: Improving with improving sepsis, dehydration. Hold lisinopril-HCTZ. Received fluid challenge. Reassess renal function. (8) Anisocoria: Resolved. Does appear to have worse visual acuity on the right. Chronicity of the problem is unknown. She does not seem to notice it. Should follow-up with ophthalmology. Granddaughter states noticed 4-5 days ago. No history of eye surgery. Measured intraocular pressure 8 mmHg. Pupils reactive directly and reciprocally. He had unremarkable. Obtain carotid duplex. (9) PAD (peripheral artery disease): Cool to touch bilateral feet, biphasic pulses PT and DP on the left. Right side monophasic PT and DP. Pulses present. Patches of discoloration of the foot. Start aspirin, statin. Will need additional outpatient evaluation. Granddaughter states she has had chronic issues with the right leg. Plan Dehydration: Progressively getting weaker at home and so could not eat or drink. Received 2 L fluid challenge. Reassess. HTN: Hold home medications for now. Hypokalemia: Additional replacement given, check magnesium. Generalized weakness: Some improvement with improving sepsis. Continue treatment of pneumonia. PT, OT. Attestations Medical Necessity Statement*: Continue admission for assessment and management of improving sepsis, complicated pneumonia with strep pneumo bacteremia, severe electrolyte deficiency, aphasia, dysphagia, unable to tolerate any oral intake currently. Coding Level of Care Code Acute Professor Of Finance for [facility] Diagnoses Sepsis A41.9; R65.20; N17.9 Acute renal failure type: unspecified Sepsis acute organ dysfunction status: with acute organ dysfunction Sepsis type: sepsis due to unspecified organism Severe sepsis acute organ dysfunction type: acute renal failure Severe sepsis shock status: without septic shock Pneumonia J18.9 Total bilirubin, elevated R17 Microscopic hematuria R31.29 Transaminitis R74.01 Aphasia R47.01 Acute kidney injury N17.9 Anisocoria H57.02 PAD (peripheral artery disease) I73.9
[2022-06-21] VITALS (14 sets, daily range): BP systolic 98–151; BP diastolic 65–81; PULSE 81–103; RESP 16–22; TEMP 36.6–37.7; O2SAT 94–99
[2022-06-21] MEDS: cefepime 1,000 MG in sodium chloride 0.9% (plus) 50 ML 100 MG IV (03:53)
[2022-06-21] MEDS: cefTRIAXone 2,000 MG in sodium chloride 0.9% (plus) 50 ML 100 MG IV ×2 (04:00→15:12)
[2022-06-21 04:41] LABS: Hematocrit 22.1 % (37.0-47.0); Mean Corpuscular HGB Conc 31.7 g/dL (30.0-36.0); Mean Corpuscular Hemoglobin 33.2 pg (28.0-34.0); Mean Corpuscular Volume 104.7 fl (81-99); Mean Platelet Volume 10.9 fL (7.4-10.4); Platelet Count 277 10^3/cmm (130-400); Red Blood Count 2.11 10^6/uL (4.1-5.3); Red Cell Distribution Width 13.1 % (12.1-15.1); White Blood Count 14.7 10^3/uL (4.0-10.0)
[2022-06-21 05:00] LABS: Alanine Aminotransferase 184 U/L (0-33); Albumin Level 1.8 g/dL (3.5-5.2); Alkaline Phosphatase 230 U/L (35-105); Anion Gap 13.5 (5-19); Aspartate Amino Transferase 377 U/L (0-32); Blood Urea Nitrogen 56 mg/dL (8-23); Calcium 8.2 mg/dL (8.5-10.5); Carbon Dioxide 25 mmol/L (22-29); Chloride 109 mmol/L (98-107); Globulin 3.4 g/dL (1.3-4.6); Glucose 184 mg/dL (65-115); Magnesium 1.8 mg/dL (1.7-2.3); Osmolality Calculated 320 mOsm/kg (285-295); Sodium 145 mmol/L (136-145); Total Bilirubin 0.6 mg/dL (0.15-1.2); Total Protein 5.2 g/dL (6.6-8.7)
[2022-06-21 05:13] LABS: Potassium 2.5 mmol/L (3.5-5.1)
[2022-06-21 05:28] LABS: Absolute Segmented Neutrophil 12.3 10/cmm (1.6-7.1); Band Neutrophils Absolute 1.6 10^3/cmm (0.0-1.2); Eosinophils 0 %; Lymphocytes 4 %; Lymphocytes Absolute 0.6 10^3/cmm (1.2-3.4); Monocytes Absolute 0.1 10^3/cmm (0.1-0.6); Segmented Neutrophils 84 %; Total Cells Counted 100 (0-100)
[2022-06-21 05:29] LABS: Macrocytosis 1+; Platelet Estimate Normal (Normal); Toxic Granulation 1+; Toxic Vacuolation 1+
--- NOTE | 2022-06-21 06:00 | USCV_ITS ---
Farrah eVlez Age: 81 Gender: F : 1940 Exam Date: 06/21/2022 12:28 Ordering Phys: Juan F Thomas MD Technologist: NESTOR Exam Location: [facility] [place] Indication: valves BP: 98 / 65 HR: 96 Rhythm: Sinus Technical Quality: Adequate MEASUREMENTS (Male / Female) Normal Values 2D ECHO LV Diastolic Diameter PLAX 3.3 cm 4.2 - 5.9 / 3.9 - 5.3 cm LV Systolic Diameter PLAX 2.5 cm IVS Diastolic Thickness 0.6 cm 0.6 - 1.0 / 0.6 - 0.9 cm IVS Systolic Thickness 0.9 cm LVPW Diastolic Thickness 0.7 cm 0.6 - 1.0 / 0.6 - 0.9 cm LVPW Systolic Thickness 0.9 cm LVOT Diameter 1.9 cm LV Ejection Fraction 2D Teich 51.0 % LV Ejection Fraction MOD 2C 58.8 % LV Ejection Fraction 2C AL 59.9 % LA Diameter 2.2 cm IVC Diameter 2.0 cm M-MODE Aortic Annulus Diameter 1.5 cm LA Ao Ratio MM 1.5 MV E Point Septal Separation 0.2 cm DOPPLER AV Peak Velocity 152.0 cm/s LVOT Peak Velocity 119.0 cm/s AV Area Cont Eq vti 2.4 cm squared AV Area Cont Eq pk 2.3 cm squared MV Area PHT 5.0 cm squared Mitral E to A Ratio 0.6 MV E' Velocity 36.5 cm/s Mitral E to MV E' Ratio 5.8 Mitral E to LV E' Lateral Ratio 5.5 Mitral E to LV E' Septal Ratio 6.1 TR Peak Velocity 271.0 cm/s TR Peak Gradient 29.4 mmHg TV Peak E Velocity 65.0 cm/s PV Peak Velocity 105.0 cm/s FINDINGS Left Ventricle Normal left ventricular size, systolic function and wall thickness, with no regional wall motion abnormalities. Left ventricular ejection fraction is estimated at 65 %. Grade I/IV diastolic dysfunction (abnormal relaxation filling pattern), normal to mildly elevated filling pressures. Right Ventricle Normal right ventricular size and systolic function. Right Atrium The right atrium is normal in size. Left Atrium The left atrium is normal in size. Mitral Valve Structurally normal mitral valve without significant stenosis or prolapse. There is no mitral regurgitation. Aortic Valve Structurally normal aortic valve without significant sclerosis or stenosis. There is no aortic regurgitation. Tricuspid Valve Structurally normal tricuspid valve without significant stenosis or regurgitation. Pulmonary artery systolic pressure is normal. Pulmonic Valve Pulmonic valve not well visualized. Pericardium Normal pericardium without effusion. Aorta Normal ascending aorta dimension. IVC The inferior vena cava appears normal. CONCLUSIONS Normal left ventricular size, systolic function and wall thickness, with no regional wall motion abnormalities. Left ventricular ejection fraction is estimated at 65 %. Grade I/IV diastolic dysfunction (abnormal relaxation filling pattern), normal to mildly elevated filling pressures. There are no prior echocardiogram studies to compare. Dr. Rodo Casanova MD (Electronically Signed) Final Date: 21 June 2022 16:20 S
[2022-06-21] MEDS: dextrose 5%-sod chloride 0.45% 1,000 ML 125 ML IV ×2 (06:27→15:12)
[2022-06-21] MEDS: lidocaine 1% 5 ML in potassium chloride premix 100 ML 50 ML IV (09:33)
[2022-06-21] MEDS: pantoprazole 40 mg SDV IVP ×2 (09:33→20:02)
[2022-06-21 09:50] LABS: Hemoglobin 6.3 g/dL (11.5-15.3)
--- NOTE | 2022-06-21 10:02 | CTR_ITS ---
PROCEDURE INFORMATION: Exam: CT Right Lower Extremity Without Contrast, Hip Exam date and time: 06/21/2022 10:49 AM Age: 81 years old Clinical indication: Pain and injury or trauma; Fall; Blunt trauma; Hip; Right; Additional info: Fall at home, pain TECHNIQUE: Imaging protocol: CT of the Right lower extremity without contrast was performed. Exam focused on the hip. Radiation optimization: All CT scans at this facility use at least one of these dose optimization techniques: automated exposure control; mA and/or kV adjustment per patient size (includes targeted exams where dose is matched to clinical indication); or iterative reconstruction. COMPARISON: US gall bladder [id number] 06/19/2022 2:49 PM RADIATION DOSE METRICS: Total DLP (mGy-cm): 260.28 FINDINGS: Bones/joints: No acute right hip fracture identified. No hip dislocation. Osseous changes related to old right-sided pubic bone fracture. Mild degenerative changes in the pubic symphysis. Soft tissues: Normal. CT/CT hip RT wo con* [id number] IMPRESSION: 1. No acute right hip fracture identified. 2. Osseous changes related to old right-sided pubic bone fracture.
--- NOTE | 2022-06-21 10:04 | CTR_ITS ---
PROCEDURE INFORMATION: Exam: CT Abdomen And Pelvis With Contrast Exam date and time: 06/21/2022 10:55 AM Age: 81 years old Clinical indication: Abdominal tenderness; Patient HX: Blood loss; Additional info: Falls at home, anemia, assess for retroperitoneal hematoma TECHNIQUE: Imaging protocol: Computed tomography of the abdomen and pelvis with contrast. Radiation optimization: All CT scans at this facility use at least one of these dose optimization techniques: automated exposure control; mA and/or kV adjustment per patient size (includes targeted exams where dose is matched to clinical indication); or iterative reconstruction. Contrast material: OMNI 350; Contrast volume: 80 ml; Contrast route: INTRAVENOUS (IV); COMPARISON: CT hip RT wo con* [id number] 06/21/2022 10:49 AM RADIATION DOSE METRICS: Total DLP (mGy-cm): 384.74 FINDINGS: Lungs: Dense consolidation occupying the partially visualized majority of the right lower lobe. Patchy consolidation in the right middle lobe. Some poorly defined areas of prominent hypoattenuation in the posterior and lateral basal segments of the right lower lobe measuring up to 3.4 and 1.6 cm respectively concerning for pulmonary abscess. Pleural spaces: Trace left-sided pleural fluid. Coronary arteries: Moderate coronary artery calcifications noted. Liver: The liver is normal in size and contour. Gallbladder and bile ducts: The gallbladder is distended with normal wall thickness and does not demonstrate calcified gallstones. No intra- or extra-hepatic biliary ductal dilatation. Pancreas: The pancreas appears normal. Spleen: The spleen appears normal. Adrenal glands: The adrenals appear normal. Kidneys and ureters: The kidneys enhance symmetrically and empty into non-dilated ureters. Stomach and bowel: The stomach is unremarkable. The small bowel loops are not abnormally dilated. The large bowel loops are not abnormally dilated. Appendix: No signs of appendicitis. Intraperitoneal space: No retroperitoneal hematoma identified. Vasculature: The aorta is nonaneurysmal. The IVC appears normal. Lymph nodes: There are no enlarged lymph nodes. Urinary bladder: Coburn catheter noted within the urinary bladder which is non-distended. Reproductive: Unremarkable as visualized. Bones/joints: Multilevel degenerative changes in the spine. Significant compression deformity at T12 with approximately 75% height loss anteriorly. Compression deformity at L2 with a proximally 50% height loss anteriorly. Superior endplate compressive deformity at L3, with less than 25% height loss . L4 vertebral body height loss less than 25%. Grade 1 anterolisthesis of L4 on L5 and L5 on S1. Osseous changes consistent with old right pubic bone fracture. Soft tissues: Unremarkable. CT/CT abdomen pelvis w con* [id number] IMPRESSION: 1. Dense consolidation in the right lung concerning for pneumonia. Findings also concerning for possible right lower lobe pulmonary abscesses. 2. Trace left-sided pleural fluid. 3. No retroperitoneal hematoma identified. 4. Multilevel compression deformities in the lower thoracic and lumbar spine. No comparisons available. Correlate with any focal pain in this region. 5. Osseous changes consistent with old right pubic bone fracture.
[2022-06-21 10:32] LABS: Hepatitis A Antibody IgM Non-Reactive (Nonreactive); Hepatitis B Core IgM Non-Reactive (Nonreactive); Hepatitis B Surface Antigen Non-Reactive (Nonreactive); Hepatitis C Virus Antibody Non-Reactive (Nonreactive)
[2022-06-21] MEDS: iohexol 350 mg/mL 500 mL Btl (per mL) IV (11:10)
--- NOTE | 2022-06-21 12:15 | PC.OT ---
OT evaluation withheld this date. Patient's Hemoglobin level is 6.3. To attempt on a later date.
[2022-06-21] MEDS: sodium chloride 0.9% (100 ml) 100 ML (15:11)
[2022-06-21 17:19] LABS: Hematocrit 24.6 % (37.0-47.0); Hemoglobin 7.8 g/dL (11.5-15.3)
[2022-06-21] MEDS: clindamycin 600 MG/50 ML PREMIX 100 MG IV (17:47)
--- NOTE | 2022-06-21 20:12 | P.PN_ITS ---
Subjective Subjective: This morning very weak, weaker than yesterday, appears pale. Answer questions well. Vitals/I&O/Wt Last Vital Signs Temp 98.2 F 06/21/22 16:00 Pulse 97 06/21/22 16:00 Resp 19 H 06/21/22 16:00 BP 121/75 06/21/22 16:00 Pulse Ox 97 06/21/22 16:00 O2 Del Method 06/21/22 11:52 O2 Flow Rate 3 06/21/22 08:16 06/21/22 06/21/22 06/21/22 06:59 14:59 22:59 Intake Total 1257 / 1257 240 / 1497 Output Total 2400 / 2400 950 / 950 Balance -2400 / -195 1257 / 1257 -710 / 547 Weight last 48 hrs Weight 50.031 kg Weight 50.666 kg Physical Exam Narrative: Family at bedside. Const: COMMON NORMALS: alert HENMT: COMMON NORMALS: oropharynx normal Eye: OTHER: Nasal phill resolved. Neck/C-Spine: COMMON NORMALS: no JVD Resp: COMMON NORMALS: normal respiratory effort and clear to auscultation bilaterally AUSCULTATION: clear to auscultation bilaterally Cardio: COMMON NORMALS: no JVD, regular rhythm, S1 normal heart sound present, S2 normal heart sound present and No murmurs present (Cardio) RHYTHM: regular rhythm HEART SOUNDS: S1 normal heart sound present and S2 normal heart sound present GI: COMMON NORMALS: Normal to inspection, nondistended, normoactive bowel sounds present, Soft to palpation and non-tender PALPATION: Yes Soft to palpation Extremity: COMMON NORMALS: no joint enlargement and no pedal edema Neuro: COMMON NORMALS: moves all extremities SENSORIUM/ORIENTATION: Yes alert Skin: COMMON NORMALS: no rashes or lesions noted GENERAL SKIN EXAM: no rashes or lesions noted Urinary Catheter Management: Coburn: Cath Placed During This Visit: yes Reason for Continuing Indwelling Catheter: Accurate Measurement of Urinary Output in Critically Ill Patients Urinary Catheter Date of Insertion: 06/19/22 Urinary Catheter Time of Insertion: 12:50 Data 06/21/22 17:01 06/21/22 03:53 Micro: Microbiology 06/19/22 12:29 Urine Culture - Final Urine,Clean Catch Escherichia coli esbl A&P Assessment and plan (1) Acute anemia: This morning hemoglobin down to 7, repeat 6.3. Aspirin and prophylactic Lovenox had to be stopped. PPI increased to IV twice daily. Given 1 unit RBC transfusion, repeat hemoglobin up to 7.8. Hemoccult requested. CT abdomen pelvis obtained due to recent falls at home, no retroperitoneal/psoas hematoma. Also complaining of right hip pain, CT head obtained without fracture. Depending on her recovery and goals of care will need further endoscopic evaluation. (2) Sepsis: Today on additional continue to acute anemia noted to have severe necrotizing pneumonia right lower lobe with suspicion of lung abscess. Will need prolonged antibiotic course. Discussed with family. Switch from ceftriaxone to Levaquin given also has ESBL UTI. Given strep pneumo bacteremia. Added clindamycin empirically for now given still septic. MRSA PCR negative. Stop vancomycin. Cholelithiasis on gallbladder ultrasound. Urine cultures so far without growth. Qualifiers: Acute renal failure type: unspecified Sepsis acute organ dysfunction status: with acute organ dysfunction Sepsis type: sepsis due to unspecified organism Severe sepsis acute organ dysfunction type: acute renal failure Severe sepsis shock status: without septic shock Qualified Code(s): A41.9 - Sepsis, unspecified organism; R65.20 - Severe sepsis without septic shock; N17.9 - Acute kidney failure, unspecified (3) Pneumonia: Complicated pneumonia with strep pneumo bacteremia, necrotizing pneumonia, suspected lung abscesses. As above. Limited TTE obtained, normal EF, grade 1 diastolic dysfunction, valves appear normal. She will not be able to provide sputum cultures. Pending urine bacterial a ntigens. Antibiotics as above. Rapid influenza, rapid COVID-19 negative. (4) Aphasia: Persistent aphasia, dysphagia. After blood transfusion reportedly perked up some, participate with ST, but still not safe to swallow anything. Had a long discussion with grandson today, discussing goals of care. For now they want to continue aggressive medical management, we discussed option of transition to comfort care given overall poor prognosis, condition with high risk of deterioration, as well as suspected CVA, so far with aphasia and dysphagia, impairment in communication, but it appears after receiving transfusion she did wake up more, was communicating more with family. We discussed that generalized weakness certainly is contributing to her dysphagia, however, it is possible that despite becoming stronger dysphagia may not resolve if related to CVA. In that case discussed whether feeding tube would be a consideration, he stated that suspect likely she would not want 1, however, they will consider and keep in mind in case we need to return to this discussion if her dysphagia is not improving, with other option being pleasure feeds with comfort. Aspirin had to be stopped due to acute anemia. Dysphagia, aphasia, discussed with family possibility of CVA. Would benefit from MRI at some point. For now continue reassessment with ST as did not do well today, not safe for oral intake. He is able to participate a bit better, noted right side drift. PT, OT. CT of the head was unremarkable. Start aspirin, statin. Carotid duplex with less than 50% stenosis in the proximal internal carotid arteries. Mild plaque. (5) Urinary tract infection: ESBL E. coli growing on urine culture, > 100,000 CFU. Switch antibiotics to Levaquin. Qualifiers: Hematuria presence: without hematuria Urinary tract infection type: site unspecified Qualified Code(s): N39.0 - Urinary tract infection, site not specified (6) Total bilirubin, elevated: Resolved GB US with cholelithiasis. Complete antibiotics as above. On exam Bautista negative. (7) Microscopic hematuria: May be traumatic following Coburn insertion. Follow-up urine culture. Follow-up outpatient for resolution. (8) Transaminitis: Secondary to severe sepsis. Acute hepatitis panel negative. (9) Acute kidney injury: Improving with improving sepsis, dehydration. Hold lisinopril-HCTZ. Received fluid challenge. Reassess renal function. (10) Anisocoria: Resolved. Does appear to have worse visual acuity on the right. Chronicity of the problem is unknown. She does not seem to notice it. Should follow-up with ophthalmology. Granddaughter states noticed 4-5 days ago. No history of eye surgery. Measured intraocular pressure 8 mmHg. Pupils reactive directly and reciprocally. He had unremarkable. Obtain carotid duplex. (11) PAD (peripheral artery disease): Cool to touch bilateral feet, biphasic pulses PT and DP on the left. Right side monophasic PT and DP. Pulses present. Patches of discoloration of the foot. Start aspirin, statin. Will need additional outpatient evaluation. Gra nddaughter states she has had chronic issues with the right leg. Plan Dehydration: Progressively getting weaker at home and so could not eat or drink. Received 2 L fluid challenge. Reassess. HTN: Hold home medications for now. Hypokalemia: Additional replacement given, follow-up potassium. Given magnesium. Follow-up magnesium. Generalized weakness: Some improvement with improving sepsis. Continue treatment of pneumonia. PT, OT. Attestations Medical Necessity Statement*: Continue admission for assessment of management of sepsis, multifocal infection with severe necrotizing pneumonia complicated by pulmonary abscesses, strep pneumo bacteremia, as well as ESBL E. coli UTI. Aphasia, dysphagia, CVA. Acute anemia. Coding Level of Care Code Acute Party Host for [facility] Fwd Diagnoses Acute anemia D64.9 Sepsis A41.9; R65.20; N17.9 Acute renal failure type: unspecified Sepsis acute organ dysfunction status: with acute organ dysfunction Sepsis type: sepsis due to unspecified organism Severe sepsis acute organ dysfunction type: acute renal failure Severe sepsis shock status: without septic shock Pneumonia J18.9 Aphasia R47.01 Urinary tract infection N39.0 Hematuria presence: without hematuria Urinary tract infection type: site unspecified Total bilirubin, elevated R17 Microscopic hematuria R31.29 Transaminitis R74.01 Acute kidney injury N17.9 Anisocoria H57.02 PAD (peripheral artery disease) I73.9
[2022-06-21] MEDS: levofloxacin-dextrose 5 % 750 MG/150 ML PREMIX 100 MG IV (21:04)
[2022-06-22] VITALS (18 sets, daily range): BP systolic 136–160; BP diastolic 70–87; PULSE 87–101; RESP 14–25; TEMP 36.4–37.6; O2SAT 93–99
[2022-06-22] MEDS: clindamycin 600 MG/50 ML PREMIX 100 MG IV ×2 (00:34→09:40)
[2022-06-22] MEDS: dextrose 5%-sod chloride 0.45% 1,000 ML 125 ML IV ×2 (01:40→10:54)
[2022-06-22 05:46] LABS: Hematocrit 22.4 % (37.0-47.0); Hemoglobin 7.2 g/dL (11.5-15.3); Mean Corpuscular HGB Conc 32.1 g/dL (30.0-36.0); Mean Corpuscular Hemoglobin 32.3 pg (28.0-34.0); Mean Corpuscular Volume 100.4 fl (81-99); Platelet Count 312 10^3/cmm (130-400); Red Blood Count 2.23 10^6/uL (4.1-5.3); Red Cell Distribution Width 15.1 % (12.1-15.1)
[2022-06-22 06:21] LABS: Alanine Aminotransferase 94 U/L (0-33); Albumin Level 1.7 g/dL (3.5-5.2); Alkaline Phosphatase 159 U/L (35-105); Anion Gap 12.7 (5-19); Aspartate Amino Transferase 58 U/L (0-32); Blood Urea Nitrogen 39 mg/dL (8-23); Calcium 7.8 mg/dL (8.5-10.5); Carbon Dioxide 25 mmol/L (22-29); Chloride 118 mmol/L (98-107); Globulin 3.3 g/dL (1.3-4.6); Glucose 126 mg/dL (65-115); Magnesium 1.9 mg/dL (1.7-2.3); Osmolality Calculated 327 mOsm/kg (285-295); Sodium 153 mmol/L (136-145); Total Bilirubin 0.4 mg/dL (0.15-1.2)
[2022-06-22 06:25] LABS: Basophils % 0.3 %; Eosinophils % 0.1 %; Lymphocytes % 6.9 %; Monocytes # 0.7 10^3/uL (0.2-0.9); Monocytes % 4.5 %; Neutrophils # 11.72 10^3/uL (1.8-7.7)
[2022-06-22 06:27] LABS: Potassium 2.7 mmol/L (3.5-5.1)
[2022-06-22] MEDS: pantoprazole 40 mg SDV IVP ×2 (09:41→21:32)
--- NOTE | 2022-06-22 11:03 | PC.SOCIAL ---
IMM Update pg 2 of IMM updated and reviewed w/ patients granddaughter. Copy provided and Copy in chart dated, and initialed.
[2022-06-22] MEDS: ketorolac 30 mg/mL INJ IVP (12:10)
--- NOTE | 2022-06-22 12:17 | PC.OT ---
OT EVALUATION HELD TODAY DUE TO PATIENT NOT ABLE TO PARTICIPATE IN EVAL AT THIS TIME. WILL ATTEMPT AGAIN TOMORROW.
[2022-06-22 13:33] LABS: Procalcitonin 2.85 ng/mL (0-0.5)
[2022-06-22 13:41] LABS: Thyroid Stimulating Hormone 2.14 uIU/mL (0.27-4.20)
[2022-06-22 13:55] LABS: Vitamin B12 > 2000 pg/mL (232-1245)
[2022-06-22] MEDS: potassium chloride oral liq 20 mEq/15 mL UDC 40 MEQ PO (14:16)
[2022-06-22] MEDS: meropenem 1,000 MG in sodium chloride 0.9% (plus) 50 ML 100 MG IV ×2 (14:16→21:33)
[2022-06-22] MEDS: dextrose 5% 1,000 ML 125 ML IV (14:22)
[2022-06-22] MEDS: ipratropium-albuterol 3 mL Neb INHALATION ×2 (15:19→20:55)
--- NOTE | 2022-06-22 15:57 | P.PN_ITS ---
Subjective Subjective: Hospital course, labs appreciated. Examination patient lying comfortably in bed with family at bedside including patient's daughter and son. Patient is on 1 L oxygen supplementation saturating 98%. Has remained hemodynamically stable. Heart rate has remained in the low 100s. T-max in the last 24 hours 99.9 Fahrenheit. Patient appears uncomfortable, incoherent, not following commands. Patient is not able to tolerate oral medicines or diet as per nursing staff and family at bedside. Vitals/I&O/Wt Last Vital Signs Temp 99.7 F H 06/22/22 11:29 Pulse 101 H 06/22/22 15:27 Resp 25 H 06/22/22 15:19 BP 138/75 06/22/22 11:29 Pulse Ox 98 06/22/22 15:19 O2 Del Method 06/22/22 15:19 O2 Flow Rate 1 06/22/22 15:19 06/22/22 06/22/22 06/22/22 06:59 14:59 22:59 Intake Total 1050 / 2747 1000 / 1000 Output Total 50 / 1000 Balance 1000 / 1747 1000 / 1000 Weight last 48 hrs Weight 52.934 kg Weight 50.031 kg Physical Exam Narrative: Family at bedside. Const: COMMON NORMALS: alert OTHER: She is awake, but answers some questions. HENMT: COMMON NORMALS: oropharynx normal Eye: OTHER: Nasal phill resolved. Neck/C-Spine: COMMON NORMALS: no JVD Resp: COMMON NORMALS: normal respiratory effort and clear to auscultation bilaterally AUSCULTATION: clear to auscultation bilaterally Cardio: COMMON NORMALS: no JVD, regular rhythm, S1 normal heart sound present, S2 normal heart sound present and No murmurs present (Cardio) RHYTHM: regular rhythm HEART SOUNDS: S1 normal heart sound present and S2 normal heart sound present GI: COMMON NORMALS: Normal to inspection, nondistended, normoactive bowel fabby nds present, Soft to palpation and non-tender PALPATION: Yes Soft to palp ation Extremity: COMMON NORMALS: no joint enlargement and no pedal edema Neuro: COMMON NORMALS: moves all extremities SENSORIUM/ORIENTATION: Yes alert OTHER: Right lower extremity drift. Both lower extremities weak dropping to bed, but right side without effort against gravity. Skin: COMMON NORMALS: no rashes or lesions noted GENERAL SKIN EXAM: no rashes or lesions noted OTHER: BL feet cool to touch. Left foot biphasic DP and PT. Right foot monophasic DP and PT pulses present. Right foot purplish discoloration patches. Medial inferior aspect. Urinary Catheter Management: Coburn: Cath Placed During This Visit: yes Reason for Continuing Indwelling Catheter: Acute Urinary Retention or Obstruct ion Urinary Catheter Date of Insertion: 06/19/22 Urinary Catheter Time of Insertion: 12:50 Data 06/22/22 02:32 06/22/22 02:32 Micro: Microbiology 06/19/22 12:38 Blood Culture - Final Blood Streptococcus pneumoniae 06/19/22 12:50 Blood Culture - Final Blood Streptococcus pneumoniae 06/19/22 12:29 Urine Culture - Final Urine,Clean Catch Escherichia coli esbl A&P Assessment and plan (1) Sepsis: Sepsis without shock. Present on admission. Secondary to ESBL E. coli UTI along with necrotizing pneumonia most likely aspiration. Target organ dysfunction is acute encephalopathy and acute kidney injury. Blood cultures positive for Streptococcus pneumonia. Stop clindamycin, Levaquin. We will switch to meropenem which will cover both for Streptococcus pneumonia, ESBL E. coli UTI as patient remains critically sick. Keep mean artery pressure over 65. Qualifiers: Acute renal failure type: unspecified Sepsis acute organ dysfunction status: with acute organ dysfunction Sepsis type: sepsis due to unspecified organism Severe sepsis acute organ dysfunction type: acute renal failure Severe sepsis shock status: without septic shock Qualified Code(s): A41.9 - Sepsis, unspecified organism; R65.20 - Severe sepsis without septic shock; N17.9 - Acute kidney failure, unspecified (2) Pneumonia: High concerns for aspiration pneumonia with right lower lobe lung abscess. Blood culture positive Streptococcus pneumonia. Antibiotic as above. Start on DuoNebs every 6 hour. Oxygen supplementation keeping saturation over 92%. Flu swab, rapid COVID-19 negative. Qualifiers: Pneumonia type: aspiration pneumonia Aspiration pneumonia type: due to vomit Laterality: right Lung location: lower lobe of lung Qualified Code(s): J69.0 - Pneumonitis due to inhalation of food and vomit (3) Acute anemia: Hemoglobin 7.2 today. Post 1 unit blood transfusion. Stool for occult blood still pending. No reported bowel movement as per nursing staff. Could be secondary to GI loss versus acute sepsis. Start on IV iron supplementation. Check stool studies. Cannot check iron panel anymore as patient received transfusion yesterday. Check vitamin B12, folate levels. IV Protonix 40 mg twice daily. Can plan for a possibility of EGD/colonoscopy once patient becomes hemodyn amically stable and less critical. CT abdomen pelvis ruled out retroperitoneal/psoas hematoma. (4) Aphasia: Keep NPO. PT/OT/speech evaluation. Discussed in detail with family at bedside. Family and patient would have not wanted PEG tube placement for long-term nutrition. Discussed patient's aphasia could be secondary to stroke versus acute metabolic encephalopathy in setting of sepsis or hypernatremia. Plan for now is to see if patient improves within next 72 hours with appropriate treatment and if not family would want patient to be transitioned over to hospice/comfort measures. (5) Abscess of lung: (6) Acute kidney injury: Resolved. Present admission secondary sepsis and dehydration. Medical reconciliation done for nephrotoxic drugs. Monitor BMP every 12 hours. (7) Urinary tract infection: ESBL E. coli UTI. Treatment as above. Qualifiers: Hematuria presence: without hematuria Urinary tract infection type: site unspecified Qualified Code(s): N39.0 - Urinary tract infection, site not specified (8) Transaminitis: Secondary to severe sepsis. Acute hepatitis panel negative. (9) PAD (peripheral artery disease): Cool to touch bilateral feet, biphasic pulses PT and DP on the left. Right side monophasic PT and DP. Pulses present. Patches of discoloration of the foot. Start aspirin, statin. Will need additional outpatient evaluation. Granddaughter states she has had chronic issues with the right leg. (10) Acute hypernatremia: Secondary to poor oral intake. Switch to D5W with potassium at 125 cc/h. Monitor BMP daily every 12 hourly. If does not improve will plan for NG tube placement. Family is agreeable for short-term for fluid boluses without feeds. (11) Goals of care, counseling/discussion: Discussed in detail with family at bedside including son and daughter. We discussed that patient is critically sick secondary to all the above mentioned i llnesses. We discussed that if family is agreeable we will plan to change the treatment and monitor for clinical improvement within next 72 hours. If patient does not improve in the next 40 to 72 hours can plan to transition to hospice. Family is agreeable. Family is also agreeable for short-term NG tube placement for free water flushes if needed for hypernatremia. Plan CODE STATUS: DNI DNR/DNI. Protonix every 12 hourly for PUD prophylaxis SCDs for DVT prophylaxis. Pain management: IV Tylenol every 12 hourly, Dilaudid 0.2 mg every 4 hour as needed. Discharge planning: Plan to discharge home once medically stable versus with hospice depending on clinical evaluation within next 24 hours. Care discussed in detail with family at bedside multiple times.. All the questions were answered. Attestations Medical Necessity Statement*: Requires further hospitalization for management of sepsis in setting of right lower lobe lung abscess, ESBL E. coli UTI, metabolic encephalopathy in setting of hypernatremia and sepsis while stroke is ruled out Critical Care Time: The high probability of a clinically significant, sudden or life threatening deterioration of the patient's [cardiac, renal, neurological, pulmonary, goals of care discussion] system(s) required my full and direct attention, intervention and personal management. The critical care time is as shown. This time is in addition to time spent performing any reported procedures but includes the following: [x] Data and vital sign review and interpretation [x] Patient assessment, examination and intervention [x] Documentation [x] Medication orders and management Critical Care Time (min): 60 Coding Level of Care Code Acute Gliding Pilot Instructor for [facility] Fwd Diagnoses Sepsis A41.9; R65.20; N17.9 Acute renal failure type: unspecified Sepsis acute organ dysfunction status: with acute organ dysfunction Sepsis type: sepsis due to unspecified organism Severe sepsis acute organ dysfunction type: acute renal failure Severe sepsis shock status: without septic shock Pneumonia J69.0 Pneumonia type: aspiration pneumonia Aspiration pneumonia type: due to vomit Laterality: right Lung location: lower lobe of lung Acute anemia D64.9 Aphasia R47.01 Abscess of lung J85.2 Acute kidney injury N17.9 Urinary tract infection N39.0 Hematuria presence: without hematuria Urinary tract infection type: site unspecified Transaminitis R74.01 PAD (peripheral artery disease) I73.9 Acute hypernatremia E87.0 Goals of care, counseling/discussion Z71.89
[2022-06-22] MEDS: iron sucrose 200 MG in sodium chloride 0.9% (100 ml) 100 ML 220 MG IV (16:42)
[2022-06-22] MEDS: dextrose 5% + KCl 20 mEq 20 MEQ/1,000 ML BAG 125 MEQ IV (16:42)
[2022-06-22] MEDS: acetaminophen 1,000 MG/100 ML PIGGYBACK 400 MG IV (16:43)
[2022-06-22] MEDS: lidocaine 1% 5 ML in potassium chloride premix 100 ML 50 ML IV (16:52)
[2022-06-22] MEDS: sodium chloride 0.9% (100 ml) 100 ML (20:18)
[2022-06-23] VITALS (10 sets, daily range): BP systolic 136–158; BP diastolic 74–81; PULSE 87–98; RESP 16–24; TEMP 36.7–37.6; O2SAT 94–99
[2022-06-23] MEDS: acetaminophen 1,000 MG/100 ML PIGGYBACK 400 MG IV ×2 (02:41→13:44)
[2022-06-23] MEDS: ipratropium-albuterol 3 mL Neb INHALATION ×4 (03:10→21:15)
[2022-06-23] MEDS: dextrose 5% + KCl 20 mEq 20 MEQ/1,000 ML BAG 125 MEQ IV ×3 (05:31→20:48)
[2022-06-23] MEDS: meropenem 1,000 MG in sodium chloride 0.9% (plus) 50 ML 100 MG IV ×3 (05:32→22:32)
[2022-06-23 07:02] LABS: Hematocrit 25.4 % (37.0-47.0); Hemoglobin 8.2 g/dL (11.5-15.3); Mean Corpuscular HGB Conc 32.3 g/dL (30.0-36.0); Mean Platelet Volume 10.4 fL (7.4-10.4); Platelet Count 370 10^3/cmm (130-400); Red Blood Count 2.73 10^6/uL (4.1-5.3); Red Cell Distribution Width 21.5 % (12.1-15.1); White Blood Count 22.1 10^3/uL (4.0-10.0)
[2022-06-23 07:21] LABS: Alanine Aminotransferase 67 U/L (0-33); Albumin Level 1.8 g/dL (3.5-5.2); Alkaline Phosphatase 159 U/L (35-105); Anion Gap 11.9 (5-19); Aspartate Amino Transferase 48 U/L (0-32); Blood Urea Nitrogen 31 mg/dL (8-23); Calcium 7.6 mg/dL (8.5-10.5); Carbon Dioxide 25 mmol/L (22-29); Chloride 114 mmol/L (98-107); Globulin 3.4 g/dL (1.3-4.6); Glucose 114 mg/dL (65-115); Osmolality Calculated 313 mOsm/kg (285-295); Sodium 148 mmol/L (136-145); Total Bilirubin 0.9 mg/dL (0.15-1.2); Total Protein 5.2 g/dL (6.6-8.7)
[2022-06-23 07:24] LABS: Absolute Segmented Neutrophil 17.9 10/cmm (1.6-7.1); Band Neutrophils Absolute 2.2 10^3/cmm (0.0-1.2); Eosinophils 0 %; Lymphocytes 4 %; Lymphocytes Absolute 0.9 10^3/cmm (1.2-3.4); Monocytes Absolute 0.7 10^3/cmm (0.1-0.6); Segmented Neutrophils 81 %; Slide Review Slide Review Perform; Total Cells Counted 100 (0-100)
[2022-06-23 07:25] LABS: Absolute Neutrophil 20.1 10^3/cmm (1.4-6.5); Hypochromasia 1+; Platelet Estimate Normal (Normal)
[2022-06-23 07:49] LABS: Potassium 2.9 mmol/L (3.5-5.1)
[2022-06-23 08:20] LABS: Folate Level 17.9 ng/mL (4.8-37.3)
[2022-06-23] MEDS: pantoprazole 40 mg SDV IVP ×2 (08:53→20:48)
[2022-06-23] MEDS: haloperidol inj 5 mg/mL INJ 1 mL IM (09:44)
--- NOTE | 2022-06-23 10:28 | XR_ITS ---
WS: [id number] Portable AP upright chest, 06/23/2022 Clinical Data: ng tube placement verification Comparison: Portable chest, 06/19/2022 Findings: The nasogastric tube is within the esophagus and appears to end in the fundus of stomach. T he patchy right lower lobe opacity remains the same. XR/XR chest 1V portable [id number] Impression: Satisfactory placement of nasogastric tube.
[2022-06-23 14:18] LABS: Add Urine Culture? No; Add Urine Microscopic? YES; Amorphous Sediment Urine 1+ /hpf; Bacteria Urine TRACE /hpf; Bilirubin Urine Neg (Negative); Blood Urine 2+ (Negative); Glucose Urine UA Norm (Normal); Ketones Urine Negative (Negative); Leukocyte Esterase Urine Negative (Negative); Mucus Urine TRACE /hpf; Nitrate Urine Negative (Negative); Protein Urine Trace (Negative); RBC Urine 0-4 /hpf (0-2); Specific Gravity, Urine 1.015 (1.005-1.030); Squamous Epithelial Cell Urine 0-4 /hpf (0-5); Urine Appearance Clear (CLEAR); Urine Color Yellow (Yellow); Urobilinogen Urine Norm (Negative); WBC Urine 0-4 /hpf (0-5); pH Urine 5 (5-7)
--- NOTE | 2022-06-23 14:20 | PM.PN ---
Subjective Subjective: No acute events overnight. Patient today morning little more awake. Able to have slight conversation. Able to tell her name. Participated with physical therapy. Complaining of feeling weak. Continues to remain on 1 L saturating more than 95%. Has remained hemodynamically stable and afebrile. Vitals/I&O/Wt Last Vital Signs Temp 99.4 F 06/23/22 08:00 Pulse 97 06/23/22 14:18 Resp 20 H 06/23/22 14:18 BP 158/78 06/23/22 08:00 Pulse Ox 98 06/23/22 14:18 O2 Del Method 06/23/22 14:18 O2 Flow Rate 1 06/23/22 14:18 06/22/22 06/23/22 06/23/22 22:59 06:59 14:59 Intake Total 2056.667 / 3156.667 1150 / 4306.667 1400 / 1400 Output Total 1550 / 1550 400 / 1950 Balance 506.667 / 1606.667 750 / 2356.667 1400 / 1400 Weight last 48 hrs Weight 51.392 kg Weight 52.934 kg Physical Exam Narrative: Family at bedside. Const: COMMON NORMALS: alert OTHER: She is awake, but answers some questions. HENMT: COMMON NORMALS: oropharynx normal Eye: COMMON NORMALS: Equal, round and reactive pupils present, EOMs intact bilaterally and conjunctivae normal CONJUNCTIVA: Yes conjunctivae normal PUPIL: Yes Equal, round and reactive pupils present Neck/C-Spine: COMMON NORMALS: no JVD Resp: COMMON NORMALS: normal respiratory effort and clear to auscultation bilaterally AUSCULTATION: clear to auscultation bilaterally Cardio: COMMON NORMALS: no JVD, regular rhythm, S1 normal heart sound present, S2 normal heart sound present and No murmurs present (Cardio) RHYTHM: regular rhythm HEART SOUNDS: S1 normal heart sound present and S2 normal heart sound present GI: COMMON NORMALS: Normal to inspection, nondistended, normoactive bowel sounds present, Soft to palpation and non-tender PALPATION: Yes Soft to palpation Extremity: COMMON NORMALS: no joint enlargement and no pedal edema Neuro: COMMON NORMALS: moves all extremities SENSORIUM/ORIENTATION: Yes alert OTHER: Right lower extremity drift. Both lower extremities weak dropping to bed, but right side without effort against gravity. Skin: COMMON NORMALS: no rashes or lesions noted GENERAL SKIN EXAM: no rashes or lesions noted OTHER: BL feet cool to touch. Left foot biphasic DP and PT. Right foot monophasic DP and PT pulses present. Right foot purplish discoloration patches. Medial inferior aspect. Urinary Catheter Management: Coburn: Cath Placed During This Visit: yes Reason for Continuing Indwelling Catheter: Accurate Measurement of Urinary Output in Critically Ill Patients Urinary Catheter Date of Insertion: 06/19/22 Urinary Catheter Time of Insertion: 12:50 Data 06/23/22 06:39 06/23/22 06:39 Micro: Microbiology 06/22/22 06:40 Blood Culture - Preliminary Blood SPECIMEN COLLECTED 06/22/22 06:39 Blood Culture - Preliminary Blood SPECIMEN COLLECTED 06/22/22 14:35 Occult Blood (FIT) - Final Stool - Stool Aspirate 06/19/22 12:38 Blood Culture - Final Blood Streptococcus pneumoniae 06/19/22 12:50 Blood Culture - Final Blood Streptococcus pneumoniae A&P Assessment and plan (1) Sepsis: Sepsis without shock. Present on admission. Secondary to ESBL E. coli UTI along with necrotizing pneumonia most likely aspiration. Target organ dysfunction is acute encephalopathy and acute kidney injury. Blood cultures positive for Streptococcus pneumonia. Repeat blood cultures so far negative. Continue with meropenem which should cover both for E. coli and Streptococcus pneumonia. MRSA negative. Qualifiers: Acute renal failure type: unspecified Sepsis acute organ dysfunction status: with acute organ dysfunction Sepsis type: sepsis due to unspecified organism Severe sepsis acute organ dysfunction type: acute renal failure Severe sepsis shock status: without septic shock Qualified Code(s): A41.9 - Sepsis, unspecified organism; R65.20 - Severe sepsis without septic shock; N17.9 - Acute kidney failure, unspecified (2) Pneumonia: High concerns for aspiration pneumonia with right lower lobe lung abscess. Blood culture positive Streptococcus pneumonia. Antibiotic as above. Continue with DuoNebs every 6 hour. Oxygen supplementation keeping saturation over 92%. Flu swab, rapid COVID-19 negative. Qualifiers: Pneumonia type: aspiration pneumonia Aspiration pneumonia type: due to vomit Laterality: right Lung location: lower lobe of lung Qualified Code(s): J69.0 - Pneumonitis due to inhalation of food and vomit (3) Acute anemia: Post 2 unit blood transfusion overall. Hemoglobin 8.2 today. Stool for occult blood negative. Most likely secondary to sepsis. Continue with IV iron supplementation. Change Protonix to 40 mg IV daily. Can plan for a possibility of EGD/colonoscopy once patient becomes hemodynamically stable and less critical. CT abdomen pelvis ruled out retroperitoneal/psoas hematoma. (4) Aphasia: Keep NPO. Continue with PT/OT/speech evaluation. Discussed in detail with family at bedside. Family and patient would have not wanted PEG tube placement for long-term nutrition. Discussed patient's aphasia could be secondary to stroke versus acute metabolic encephalopathy in setting of sepsis or hypernatremia. Plan for now is to see if patient improves within next 72 hours with appropriate treatment and if not family would want patient to be transitioned over to hospice/comfort measures. (5) Abscess of lung: (6) Acute kidney injury: Resolved. Present admission secondary sepsis and dehydration. Medical reconciliation done for nephrotoxic drugs. Monitor BMP every 12 hours. (7) Urinary tract infection: ESBL E. coli UTI. Treatment as above. Qualifiers: Hematuria presence: without hematuria Urinary tract infection type: site unspecified Qualified Code(s): N39.0 - Urinary tract infection, site not specified (8) Transaminitis: Secondary to severe sepsis. Acute hepatitis panel negative. (9) PAD (peripheral artery disease): Cool to touch bilateral feet, biphasic pulses PT and DP on the left. Right side monophasic PT and DP. Pulses present. Patches of discoloration of the foot. Start aspirin, statin. Will need additional outpatient evaluation. Granddaughter states she has had chronic issues with the right leg. (10) Acute hypernatremia: Secondary to poor oral intake. Slightly better today. Continue D5W at 125 cc/h. Place NG tube. Start on 250 cc every 4 hour of free water flushes. Continue check BMP every 12 hours. Family is agreeable for short-term for fluid boluses without feeds. (11) Goals of care, counseling/discussion: Discussed in detail with family at bedside including son and daughter. We discussed that patient is critically sick secondary to all the above mentioned illnesses. We discussed that if family is agreeable we will plan to change the treatment and monitor for clinical improvement within next 72 hours. If patient does not improve in the next 40 to 72 hours can plan to transition to hospice. Family is agreeable. Family is also agreeable for short-term NG tube placement for free water flushes if needed for hypernatremia. Plan CODE STATUS: DNI DNR/DNI. Protonix every 12 hourly for PUD prophylaxis SCDs for DVT prophylaxis. Pain management: IV Tylenol every 12 hourly, Dilaudid 0.2 mg every 4 hour as needed. Discharge planning: Plan to discharge home once medically stable versus with hospice depending on clinical evaluation within next 24 hours. Care discussed in detail with family at bedside multiple times.. All the questions were answered. Attestations Medical Necessity Statement*: Requires further hospitalization for management of sepsis secondary to aspiration pneumonia, Streptococcus pneumoniae bacteremia, ESBL E. 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 Sepsis A41.9; R65.20; N17.9 Acute renal failure type: unspecified Sepsis acute organ dysfunction status: with acute organ dysfunction Sepsis type: sepsis due to unspecified organism Severe sepsis acute organ dysfunction type: acute renal failure Severe sepsis shock status: without septic shock Pneumonia J69.0 Pneumonia type: aspiration pneumonia Aspiration pneumonia type: due to vomit Laterality: right Lung location: lower lobe of lung Acute anemia D64.9 Aphasia R47.01 Abscess of lung J85.2 Acute kidney injury N17.9 Urinary tract infection N39.0 Hematuria presence: without hematuria Urinary tract infection type: site unspecified Transaminitis R74.01 PAD (peripheral artery disease) I73.9 Acute hypernatremia E87.0 Goals of care, counseling/discussion Z71.89
--- NOTE | 2022-06-23 15:56 | PC.OT ---
OT EVALUATION ATTEMPTED THIS P.M. PATIENT AWAKENS BUT IS UNABLE TO KEEP EYES OPEN OR FOLLOW DIRECTIONS OF ANY KIND. WILL ATTEMPT AGAIN TOMORROW.
--- NOTE | 2022-06-23 15:58 | MR_ITS ---
WS: [id number] MRI BRAIN WITHOUT CONTRAST (fast protocol) HISTORY: Possibility of stroke COMPARISON: CT head 06/19/2022 TECHNIQUE: Diffusion imaging, multiplanar T1, T2 and FLAIR imaging obtained. This is a significantly limited evaluation. Patient was unable to remain still for this examination. No large area of diffusion abnormality or midline shift. Small to moderate acute infarcts would easil y be obscured with this amount of motion. There is atrophy and small vessel ischemic disease. No infe rior displacement of cerebellar tonsils. Severe bilateral confluent chronic white matter ischemic dis ease. MR/MR head wo con* [id number] IMPRESSION: 1. Very limited evaluation of the brain due to significant motion. Exam nearly nondiagnostic for areas of infarct. A large infarct is not present. 2. Moderate to severe small vessel ischemic disease and atrophy.
[2022-06-23] MEDS: iron sucrose 200 MG in sodium chloride 0.9% (100 ml) 100 ML 220 MG IV (17:36)
[2022-06-23 18:10] LABS: Anion Gap 11.9 (5-19); Blood Urea Nitrogen 24 mg/dL (8-23); Calcium 7.6 mg/dL (8.5-10.5); Carbon Dioxide 25 mmol/L (22-29); Chloride 115 mmol/L (98-107); Glucose 152 mg/dL (65-115); Osmolality Calculated 315 mOsm/kg (285-295); Sodium 149 mmol/L (136-145)
[2022-06-23 18:14] LABS: Potassium 2.9 mmol/L (3.5-5.1)
--- NOTE | 2022-06-23 18:15 | PC.NURSE ---
Patient resting in bed, nonverbal, responds to pain stimuli, place NGT during shift and gave one round of free water flush and patient removed NGT. Physician notified, no new orders at this time. Patient turned frequently during shift with moaning during turns. No needs at this time, Room clean and clutter free with call light in reach and this nurse rounding frequently.
[2022-06-24] VITALS (14 sets, daily range): BP systolic 127–153; BP diastolic 69–83; PULSE 90–118; RESP 16–20; TEMP 36.9–37.9; O2SAT 94–99
[2022-06-24] MEDS: ipratropium-albuterol 3 mL Neb INHALATION ×4 (02:26→20:11)
[2022-06-24] MEDS: meropenem 1,000 MG in sodium chloride 0.9% (plus) 50 ML 100 MG IV ×3 (05:10→21:56)
[2022-06-24] MEDS: dextrose 5% + KCl 20 mEq 20 MEQ/1,000 ML BAG 125 MEQ IV ×2 (05:11→13:18)
[2022-06-24 05:32] LABS: Basophils % 0.2 %; Eosinophils # 0.1 10^3/uL (0.0-0.8); Eosinophils % 0.7 %; Hematocrit 24.1 % (37.0-47.0); Hemoglobin 7.6 g/dL (11.5-15.3); Lymphocytes # 0.9 10^3/uL (0.8-4.8); Lymphocytes % 5.1 %; Mean Corpuscular HGB Conc 31.5 g/dL (30.0-36.0); Mean Corpuscular Hemoglobin 29.9 pg (28.0-34.0); Mean Corpuscular Volume 94.9 fl (81-99); Mean Platelet Volume 10.9 fL (7.4-10.4); Monocytes # 0.4 10^3/uL (0.2-0.9); Monocytes % 2.1 %; Neutrophils # 14.35 10^3/uL (1.8-7.7); Neutrophils % 85.5 %; Nucleated Red Blood Cells # 0.1 /100WBC; Nucleated Red Blood Cells % 0.6 %; Platelet Count 426 10^3/cmm (130-400); Red Blood Count 2.54 10^6/uL (4.1-5.3); Red Cell Distribution Width 20.6 % (12.1-15.1); White Blood Count 16.8 10^3/uL (4.0-10.0)
[2022-06-24 05:41] LABS: Alanine Aminotransferase 48 U/L (0-33); Albumin Level 1.9 g/dL (3.5-5.2); Alkaline Phosphatase 134 U/L (35-105); Anion Gap 11.2 (5-19); Blood Urea Nitrogen 16 mg/dL (8-23); Calcium 7.5 mg/dL (8.5-10.5); Carbon Dioxide 26 mmol/L (22-29); Chloride 111 mmol/L (98-107); Globulin 3.2 g/dL (1.3-4.6); Glucose 131 mg/dL (65-115); Osmolality Calculated 303 mOsm/kg (285-295); Potassium 3.2 mmol/L (3.5-5.1); Sodium 145 mmol/L (136-145); Total Bilirubin 0.6 mg/dL (0.15-1.2); Total Protein 5.1 g/dL (6.6-8.7)
[2022-06-24 05:50] LABS: Aspartate Amino Transferase 34 U/L (0-32)
[2022-06-24] MEDS: HYDROmorphone 1 mg/mL INJ 1 mL 0.2 MG IVP ×3 (08:34→22:10)
[2022-06-24] MEDS: pantoprazole 40 mg SDV IVP ×2 (08:35→20:57)
--- NOTE | 2022-06-24 10:56 | PC.SOCIAL ---
IMM update IMM updated with patient's granddaughter. Verbalized an understanding. Initialled, dated, timed, and placed in chart.
--- NOTE | 2022-06-24 14:25 | PM.PN ---
Subjective Subjective: No acute events overnight. Today morning seen with son at bedside. Patient is awake and alert lying comfortably in bed, fairly weak, able to complete conversation. Patient does not have any pain. Alert to self and place. States breathing is stable. Has remained hemodynamically stable and afebrile on 1 L oxygen supplementation. Vitals/I&O/Wt Last Vital Signs Temp 98.9 F 06/24/22 12:00 Pulse 91 06/24/22 12:00 Resp 18 06/24/22 12:00 BP 127/75 06/24/22 12:00 Pulse Ox 97 06/24/22 12:00 O2 Del Method 06/24/22 08:23 O2 Flow Rate 1 06/24/22 08:23 06/23/22 06/24/22 06/24/22 22:59 06:59 14:59 Intake Total 1005.833 / 2405.833 1100 / 3505.833 1050 / 1050 Output Total 700 / 700 300 / 1000 Balance 305.833 / 1705.833 800 / 2505.833 1050 / 1050 Weight last 48 hrs Weight 53.615 kg Weight 53.615 kg Weight 51.392 kg Physical Exam Narrative: Family at bedside. Const: COMMON NORMALS: alert OTHER: She is awake, but answers some questions. HENMT: COMMON NORMALS: oropharynx normal Eye: COMMON NORMALS: Equal, round and reactive pupils present, EOMs intact bilaterally and conjunctivae normal CONJUNCTIVA: Yes conjunctivae normal PUPIL: Yes Equal, round and reactive pupils present OTHER: Nasal phill resolved. Neck/C-Spine: COMMON NORMALS: no JVD Resp: COMMON NORMALS: normal respiratory effort and clear to auscultation bilaterally AUSCULTATION: clear to auscultation bilaterally Cardio: COMMON NORMALS: no JVD, regular rhythm, S1 normal heart sound present, S2 normal heart sound present and No murmurs present (Cardio) RHYTHM: regular rhythm HEART SOUNDS: S1 normal heart sound present and S2 normal heart sound present GI: COMMON NORMALS: Normal to inspection, nondistended, normoactive bowel sounds present, Soft to palpation and non-tender PALPATION: Yes Soft to palpation Extremity: COMMON NORMALS: no joint enlargement and no pedal edema Neuro: COMMON NORMALS: moves all extremities SENSORIUM/ORIENTATION: Yes alert OTHER: Right lower extremity drift. Both lower extremities weak dropping to bed, but right side without effort against gravity. Skin: COMMON NORMALS: no rashes or lesions noted GENERAL SKIN EXAM: no rashes or lesions noted OTHER: BL feet cool to touch. Left foot biphasic DP and PT. Right foot monophasic DP and PT pulses present. Right foot purplish discoloration patches. Medial inferior aspect. Urinary Catheter Management: [place]urn: Cath Placed During This Visit: yes Reason for Continuing Indwelling Catheter: Acute Urinary Retention or Obstruction Urinary Catheter Date of Insertion: 06/19/22 Urinary Catheter Time of Insertion: 12:50 Data 06/24/22 04:52 06/24/22 04:52 Micro: Microbiology 06/22/22 06:40 Blood Culture - Preliminary Blood NEGATIVE TO DATE 06/22/22 06:39 Blood Culture - Preliminary Blood NEGATIVE TO DATE A&P Assessment and plan (1) Sepsis: Sepsis without shock. Present on admission. Secondary to ESBL E. coli UTI along with necrotizing pneumonia most likely aspiration. Target organ dysfunction is acute encephalopathy and acute kidney injury. Blood cultures positive for Streptococcus pneumonia. Repeat blood cultures so far negative. Continue with meropenem which should cover both for E. coli and Streptococcus pneumonia. MRSA negative. Qualifiers: Acute renal failure type: unspecified Sepsis acute organ dysfunction status: with acute organ dysfunction Sepsis type: sepsis due to unspecified organism Severe sepsis acute organ dysfunction type: acute renal failure Severe sepsis shock status: without septic shock Qualified Code(s): A41.9 - Sepsis, unspecified organism; R65.20 - Severe sepsis without septic shock; N17.9 - Acute kidney failure, unspecified (2) Pneumonia: High concerns for aspiration pneumonia with right lower lobe lung abscess. Blood culture positive Streptococcus pneumonia. Antibiotic as above. Continue with DuoNebs every 6 hour. Oxygen supplementation keeping saturation over 92%. Flu swab, rapid COVID-19 negative. Qualifiers: Pneumonia type: aspiration pneumonia Aspiration pneumonia type: due to vomit Laterality: right Lung location: lower lobe of lung Qualified Code(s): J69.0 - Pneumonitis due to inhalation of food and vomit (3) Acute anemia: Post 2 unit blood transfusion overall. Hemoglobin 8.2 today. Stool for occult blood negative. Most likely secondary to sepsis. Continue with IV iron supplementation. Change Protonix to 40 mg IV daily. Can plan for a possibility of EGD/colonoscopy once patient becomes hemodynamically stable and less critical. CT abdomen pelvis ruled out retroperitoneal/psoas hematoma. (4) Aphasia: Keep NPO. Continue with PT/OT/speech evaluation. Discussed in detail with family at bedside. Family and patient would have not wanted PEG tube placement for long-term nutrition. Discussed patient's aphasia could be secondary to stroke versus acute metabolic encephalopathy in setting of sepsis or hypernatremia. Plan for now is to see if patient improves within next 72 hours with appropriate treatment and if not family would want patient to be transitioned over to hospice/comfort measures. (5) Abscess of lung: (6) Acute kidney injury: Resolved. Present admission secondary sepsis and dehydration. Medical reconciliation done for nephrotoxic drugs. Monitor BMP every 12 hours. (7) Urinary tract infection: ESBL E. coli UTI. Treatment as above. Qualifiers: Hematuria presence: without hematuria Urinary tract infection type: site unspecified Qualified Code(s): N39.0 - Urinary tract infection, site not specified (8) Transaminitis: Secondary to severe sepsis. Acute hepatitis panel negative. (9) PAD (peripheral artery disease): Cool to touch bilateral feet, biphasic pulses PT and DP on the left. Right side monophasic PT and DP. Pulses present. Patches of discoloration of the foot. Start aspirin, statin. Will need additional outpatient evaluation. Granddaughter states she has had chronic issues with the right leg. (10) Acute hypernatremia: Secondary to poor oral intake. Slightly better today. Continue D5W at 125 cc/h. Continue check BMP every 12 hours. Family is agreeable for short-term for fluid boluses without feeds. (11) Goals of care, counseling/discussion: Discussed in detail with family at bedside including son and daughter. We discussed that patient is critically sick secondary to all the above mentioned illnesses. We discussed that if family is agreeable we will plan to change the treatment and monitor for clinical improvement within next 72 hours. If patient does not improve in the next 40 to 72 hours can plan to transition to hospice. Family is agreeable. Family is also agreeable for short-term NG tube placement for free water flushes if needed for hypernatremia. Plan CODE STATUS: DNR/DNI. Protonix every 12 hourly for PUD prophylaxis SCDs for DVT prophylaxis. Pain management: IV Tylenol every 12 hourly, Dilaudid 0.2 mg every 4 hour as needed. Plan for the day: Continue with current antibiotics including meropenem. Vancomycin stopped as patient is MRSA negative. Repeat blood cultures so far negative. Continue D5W at 125 cc/h. NG tube placed yesterday for free water fluid flushes removed by patient. Not reattempted given goals of care. Check BMP every 12 hourly. Speech therapy evaluation and advance diet accordingly. Continue n.p.o. till then. Patient has verbalized that she would not want any kind of artificial feeds including PEG tube or NG tube. Monitor hemoglobin daily. Continue with IV iron supplementation. Family is agreeable to continuation of treatment and will hold off on hospice for now given improvement. Discussed with family that it is quite possible patient will require prolonged hospitalization and even discharged to SNF for further rehabitation. Son for now verbalized understanding and is going to discuss further with family. Discharge planning: Plan to discharge home once medically stable versus with hospice depending on clinical evaluation within next 24 hours. Care discussed in detail with family at bedside multiple times.. All the questions were answered. 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 Sepsis A41.9; R65.20; N17.9 Acute renal failure type: unspecified Sepsis acute organ dysfunction status: with acute organ dysfunction Sepsis type: sepsis due to unspecified organism Severe sepsis acute organ dysfunction type: acute renal failure Severe sepsis shock status: without septic shock Pneumonia J69.0 Pneumonia type: aspiration pneumonia Aspiration pneumonia type: due to vomit Laterality: right Lung location: lower lobe of lung Acute anemia D64.9 Aphasia R47.01 Abscess of lung J85.2 Acute kidney injury N17.9 Urinary tract infection N39.0 Hematuria presence: without hematuria Urinary tract infection type: site unspecified Transaminitis R74.01 PAD (peripheral artery disease) I73.9 Acute hypernatremia E87.0 Goals of care, counseling/discussion Z71.89
[2022-06-24] MEDS: lanolin oint 7 gm 1 APPLIC TOPICAL (15:10)
[2022-06-24] MEDS: iron sucrose 200 MG in sodium chloride 0.9% (100 ml) 100 ML 220 MG IV (17:04)
[2022-06-24 17:33] LABS: Anion Gap 10.2 (5-19); Blood Urea Nitrogen 13 mg/dL (8-23); Calcium 7.3 mg/dL (8.5-10.5); Carbon Dioxide 26 mmol/L (22-29); Chloride 108 mmol/L (98-107); Glucose 124 mg/dL (65-115); Osmolality Calculated 294 mOsm/kg (285-295); Potassium 3.2 mmol/L (3.5-5.1); Sodium 141 mmol/L (136-145)
[2022-06-24] MEDS: D5-NS 0.45% + KCL 20 mEq 20 MEQ/1,000 ML BAG 75 MEQ IV (17:59)
[2022-06-25] VITALS (17 sets, daily range): BP systolic 141–164; BP diastolic 70–97; PULSE 91–110; RESP 14–24; TEMP 36.7–38.1; O2SAT 91–99
[2022-06-25] MEDS: ipratropium-albuterol 3 mL Neb INHALATION ×2 (01:29→08:25)
[2022-06-25 05:29] LABS: Basophils % 0.2 %; Eosinophils # 0.1 10^3/uL (0.0-0.8); Eosinophils % 0.6 %; Hematocrit 24.6 % (37.0-47.0); Hemoglobin 7.5 g/dL (11.5-15.3); Lymphocytes # 1.1 10^3/uL (0.8-4.8); Lymphocytes % 5.6 %; Mean Corpuscular HGB Conc 30.5 g/dL (30.0-36.0); Mean Corpuscular Hemoglobin 29.5 pg (28.0-34.0); Mean Corpuscular Volume 96.9 fl (81-99); Mean Platelet Volume 10.6 fL (7.4-10.4); Monocytes # 0.6 10^3/uL (0.2-0.9); Monocytes % 3.1 %; Neutrophils # 16.43 10^3/uL (1.8-7.7); Neutrophils % 85.5 %; Nucleated Red Blood Cells % 0.2 %; Platelet Count 432 10^3/cmm (130-400); Red Blood Count 2.54 10^6/uL (4.1-5.3); Red Cell Distribution Width 19.3 % (12.1-15.1); White Blood Count 19.2 10^3/uL (4.0-10.0)
[2022-06-25 05:52] LABS: Alanine Aminotransferase 33 U/L (0-33); Alkaline Phosphatase 141 U/L (35-105); Anion Gap 11.5 (5-19); Aspartate Amino Transferase 25 U/L (0-32); Blood Urea Nitrogen 10 mg/dL (8-23); Calcium 7.4 mg/dL (8.5-10.5); Carbon Dioxide 25 mmol/L (22-29); Chloride 108 mmol/L (98-107); Globulin 3.2 g/dL (1.3-4.6); Glucose 110 mg/dL (65-115); Osmolality Calculated 292 mOsm/kg (285-295); Potassium 3.5 mmol/L (3.5-5.1); Sodium 141 mmol/L (136-145); Total Bilirubin 0.8 mg/dL (0.15-1.2); Total Protein 5.2 g/dL (6.6-8.7)
[2022-06-25] MEDS: meropenem 1,000 MG in sodium chloride 0.9% (plus) 50 ML 100 MG IV ×3 (06:12→22:16)
[2022-06-25] MEDS: D5-NS 0.45% + KCL 20 mEq 20 MEQ/1,000 ML BAG 75 MEQ IV (08:22)
[2022-06-25] MEDS: pantoprazole 40 mg SDV IVP ×2 (08:22→22:00)
--- NOTE | 2022-06-25 10:25 | US_ITS ---
WS: [id number] ULTRASOUND PELVIS TECHNIQUE: Transabdominal. CLINICAL INFORMATION: uterine bleeding LMP: : No. COMPARISON: None. FINDINGS: Coburn catheter clamped to fill bladder for sonographic window. Uterus not well visualized due to over lying bowel gas. Neither ovary is visualized. No evidence of cystic or solid pelvic mass. No other re markable findings. US/US pelvic complete* [id number] IMPRESSION: 1. Uterus is not well visualized due to overlying bowel gas. 2. Neither ovary is visualized. 3. No evidence of cystic or solid pelvic mass.
--- NOTE | 2022-06-25 10:26 | CTR_ITS ---
PROCEDURE INFORMATION: Exam: CT Chest With Contrast; Diagnostic Exam date and time: 06/25/2022 11:54 PM Age: 81 years old Clinical indication: Shortness of breath; Patient HX: SOB. Possible lung abscess noted on abd/pel CT. TECHNIQUE: Imaging protocol: Diagnostic computed tomography of the chest with contrast. Radiation optimization: All CT scans at this facility use at least one of these dose optimization techniques: automated exposure control; mA and/or kV adjustment per patient size (includes targeted exams where dose is matched to clinical indication); or iterative reconstruction. Contrast material: OMNI 350; Contrast volume: 100 ml; Contrast route: INTRAVENOUS (IV); COMPARISON: CT abdomen pelvis w con* [id number] 06/21/2022 10:55 AM RADIATION DOSE METRICS: Total DLP (mGy-cm): 329.61 FINDINGS: Lungs: Dense consolidation noted of the right lower lobe, consistent with right lower lobe pneumonia. There are areas of decreased attenuation within the consolidated right lower lobe. There are rounded foci of air outside the bronchial tree also noted. The findings are suspicious for pulmonary abscesses, measuring up to 2.3 cm in diameter. Right upper lobe is free of infiltrates. Mild atelectasis versus infiltrate in the inferior right middle lobe. Mild atelectasis in the lingula. Left lower lobe is free of infiltrates. Pleural spaces: Small left pleural effusion. Minimal right pleural effusion. No pneumothorax. Heart: Mild cardiomegaly is noted. Coronary arteries: The coronary arteries demonstrate atherosclerotic calcifications. Lymph nodes: No pathologically enlarged lymph nodes are demonstrated. No pathologically enlarged lymph nodes are demonstrated. Vasculature: The thoracic aorta is atherosclerotic. Bones/joints: Multiple lower thoracic spine compression fractures noted, of undetermined age. Soft tissues: The soft tissues are unremarkable as demonstrated. CT/CT chest w con* [id number] IMPRESSION: 1. Dense consolidation noted of the right lower lobe, consistent with right lower lobe pneumonia. 2. There are areas of decreased attenuation within the consolidated right lower lobe. There are rounded foci of air outside the bronchial tree also noted. The findings are suspicious for pulmonary abscesses, measuring up to 2.3 cm in diameter. This has worsened when compared to 06/21/2022. 3. No significant infiltrate in the left lung. 4. Minimal bilateral pleural effusions. 5. Mild cardiomegaly is noted. 6. Multiple lower thoracic spine compression fractures noted, of undetermined age. This appears unchanged from CT abdomen and pelvis study of 06/21/2022.
[2022-06-25] MEDS: HYDROmorphone 1 mg/mL INJ 1 mL 0.2 MG IVP (11:43)
--- NOTE | 2022-06-25 14:26 | PM.PN ---
Subjective Subjective: No acute events overnight. Patient has remained hemodynamically stable and afebrile. Today morning examination not on oxygen. Does not seem to be out of breath. Denies any difficulty in breathing. Awake and alert but weak on examination. Able to have complete conversation. As per the nurse patient having few episodes of bloody discharge either from the rectum or vagina. Vitals/I&O/Wt Last Vital Signs Temp 98.0 F 06/25/22 11:57 Pulse 101 H 06/25/22 14:00 Resp 18 06/25/22 14:00 BP 143/71 06/25/22 11:57 Pulse Ox 99 06/25/22 14:00 O2 Del Method 06/25/22 14:00 O2 Flow Rate 2 06/25/22 14:00 FiO2 2 06/25/22 01:30 06/24/22 06/25/22 06/25/22 22:59 06:59 14:59 Intake Total 720.417 / 1770.417 850 / 2620.417 200 / 200 Output Total 900 / 900 Balance -179.583 / 870.417 850 / 1720.417 200 / 200 Weight last 48 hrs Weight 53.615 kg Weight 53.615 kg Physical Exam Narrative: Family at bedside. Const: COMMON NORMALS: alert OTHER: She is awake, but answers some questions. HENMT: COMMON NORMALS: oropharynx normal Eye: COMMON NORMALS: Equal, round and reactive pupils present, EOMs intact bilaterally and conjunctivae normal CONJUNCTIVA: Yes conjunctivae normal PUPIL: Yes Equal, round and reactive pupils present Neck/C-Spine: COMMON NORMALS: no JVD Resp: COMMON NORMALS: normal respiratory effort and clear to auscultation bilaterally AUSCULTATION: clear to auscultation bilaterally Cardio: COMMON NORMALS: no JVD, regular rhythm, S1 normal heart sound present, S2 normal heart sound present and No murmurs present (Cardio) RHYTHM: regular rhythm HEART SOUNDS: S1 normal heart sound present and S2 normal heart sound present GI: COMMON NORMALS: Normal to inspection, nondistended, normoactive bowel sounds present, Soft to palpation and non-tender PALPATION: Yes Soft to palpation Extremity: COMMON NORMALS: no joint enlargement and no pedal edema Neuro: COMMON NORMALS: moves all extremities SENSORIUM/ORIENTATION: Yes alert OTHER: Both lower extremities weak dropping to bed. Skin: COMMON NORMALS: no rashes or lesions noted GENERAL SKIN EXAM: no rashes or lesions noted OTHER: BL feet cool to touch. Left foot biphasic DP and PT. Right foot monophasic DP and PT pulses present. Right foot purplish discoloration patches. Medial inferior aspect. Urinary Catheter Management: [place]: Cath Placed During This Visit: yes Reason for Continuing Indwelling Catheter: Acute Urinary Retention or Obstruction Urinary Catheter Date of Insertion: 06/19/22 Urinary Catheter Time of Insertion: 12:50 Data 06/25/22 04:30 06/25/22 04:30 A&P Assessment and plan (1) Sepsis: Sepsis without shock. Present on admission. Secondary to ESBL E. coli UTI along with necrotizing pneumonia most likely aspiration. Target organ dysfunction is acute encephalopathy and acute kidney injury. Blood cultures positive for Streptococcus pneumonia. Repeat blood cultures so far negative. Continue with meropenem which should cover both for E. coli and Streptococcus pneumonia. MRSA negative. Qualifiers: Acute renal failure type: unspecified Sepsis acute organ dysfunction status: with acute organ dysfunction Sepsis type: sepsis due to unspecified organism Severe sepsis acute organ dysfunction type: acute renal failure Severe sepsis shock status: without septic shock Qualified Code(s): A41.9 - Sepsis, unspecified organism; R65.20 - Severe sepsis without septic shock; N17.9 - Acute kidney failure, unspecified (2) Pneumonia: High concerns for aspiration pneumonia with right lower lobe lung abscess. Blood culture positive Streptococcus pneumonia. Antibiotic as above. Continue with DuoNebs every 6 hour. Oxygen supplementation keeping saturation over 92%. Flu swab, rapid COVID-19 negative. Qualifiers: Pneumonia type: aspiration pneumonia Aspiration pneumonia type: due to vomit Laterality: right Lung location: lower lobe of lung Qualified Code(s): J69.0 - Pneumonitis due to inhalation of food and vomit (3) Abscess of lung: (4) Acute hypernatremia: Sodium stable at 141. Fluids changed to D5 half NS at 75 cc/h. Continue check BMP every 12 hours. Family is agreeable for short-term for fluid boluses without feeds. (5) Acute anemia: Post 2 unit blood transfusion overall. Hemoglobin 8.2 today. Stool for occult blood negative. Most likely secondary to sepsis. Continue with IV iron supplementation. Change Protonix to 40 mg IV daily. Can plan for a possibility of EGD/colonoscopy once patient becomes hemodynamically stable and less critical. CT abdomen pelvis ruled out retroperitoneal/psoas hematoma. (6) Aphasia: Keep NPO. Continue with PT/OT/speech evaluation. Discussed in detail with family at bedside. Family and patient would have not wanted PEG tube placement for long-term nutrition. Discussed patient's aphasia could be secondary to stroke versus acute metabolic encephalopathy in setting of sepsis or hypernatremia. Plan for now is to see if patient improves within next 72 hours with appropriate treatment and if not family would want patient to be transitioned over to hospice/comfort measures. (7) Acute kidney injury: Resolved. Present admission secondary sepsis and dehydration. Medical reconciliation done for nephrotoxic drugs. Monitor BMP every 12 hours. (8) Urinary tract infection: ESBL E. coli UTI. Treatment as above. Qualifiers: Hematuria presence: without hematuria Urinary tract infection type: site unspecified Qualified Code(s): N39.0 - Urinary tract infection, site not specified (9) Transaminitis: Secondary to severe sepsis. Acute hepatitis panel negative. (10) PAD (peripheral artery disease): Cool to touch bilateral feet, biphasic pulses PT and DP on the left. Right side monophasic PT and DP. Pulses present. Patches of discoloration of the foot. Start aspirin, statin. Will need additional outpatient evaluation. Granddaughter states she has had chronic issues with the right leg. (11) Goals of care, counseling/discussion: Discussed in detail with family at bedside including son and daughter. We discussed that patient is critically sick secondary to all the above mentioned illnesses. We discussed that if family is agreeable we will plan to change the treatment and monitor for clinical improvement within next 72 hours. If patient does not improve in the next 40 to 72 hours can plan to transition to hospice. Family is agreeable. Family is also agreeable for short-term NG tube placement for free water flushes if needed for hypernatremia. Plan CODE STATUS: DNR/DNI. Protonix every 12 hourly for PUD prophylaxis SCDs for DVT prophylaxis. Pain management: IV Tylenol every 12 hourly, Dilaudid 0.2 mg every 4 hour as needed. Plan for the day: Fluids switched to D5 half NS at 75 cc/h with 20 mg of potassium. Continue same. Continue with meropenem. Physical therapy. Out of bed to chair. Advance diet as per speech therapy. Monitor BMP every 12 hours. Because of persistent leukocytosis we will get CT chest for further evaluation of lung abscess. If persist will consult pulmonology for possible bronchoscopy and drainage. Concerns from nurse regarding possible bleeding through rectum or vagina. Hemoglobin seems to be stable around 7.5-7.8. Target hemoglobin around 8. Confirm with patient again. She would not want any need of artificial feeds. Remains DNR/DNI. Case management alerted for possible transfer or discharge to SNF for further rehabitation when closer to discharge. Discharge planning: Home with home health versus SNF as per PT evaluation. Care discussed in detail with family at bedside multiple times. All the questions were answered. Attestations Medical Necessity Statement*: Requires further hospitalization for management of strep pneumonia bacteremia, lung abscess, resolving hyponatremia, physical deconditioning Time Spent in Patient Care: Greater than 35 minutes Coding Level of Care Code Acute Elevated Work Platform Operator for Chg Fwd Diagnoses Sepsis A41.9; R65.20; N17.9 Acute renal failure type: unspecified Sepsis acute organ dysfunction status: with acute organ dysfunction Sepsis type: sepsis due to unspecified organism Severe sepsis acute organ dysfunction type: acute renal failure Severe sepsis shock status: without septic shock Pneumonia J69.0 Pneumonia type: aspiration pneumonia Aspiration pneumonia type: due to vomit Laterality: right Lung location: lower lobe of lung Abscess of lung J85.2 Acute hypernatremia E87.0 Acute anemia D64.9 Aphasia R47.01 Acute kidney injury N17.9 Urinary tract infection N39.0 Hematuria presence: without hematuria Urinary tract infection type: site unspecified Transaminitis R74.01 PAD (peripheral artery disease) I73.9 Goals of care, counseling/discussion Z71.89
[2022-06-25] MEDS: iron sucrose 200 MG in sodium chloride 0.9% (100 ml) 100 ML 220 MG IV (16:13)
[2022-06-25] MEDS: sodium chloride 0.9% (100 ml) 100 ML 30 ML (16:49)
[2022-06-25 17:16] LABS: Anion Gap 8.4 (5-19); Blood Urea Nitrogen 9 mg/dL (8-23); Calcium 7.2 mg/dL (8.5-10.5); Carbon Dioxide 28 mmol/L (22-29); Chloride 108 mmol/L (98-107); Glucose 105 mg/dL (65-115); Osmolality Calculated 291 mOsm/kg (285-295); Potassium 3.4 mmol/L (3.5-5.1); Sodium 141 mmol/L (136-145)
--- NOTE | 2022-06-25 18:13 | PC.NURSE ---
Patient more alert and awake this shift, AAOx2 person and place with confusion. Patient has had elevated heart rate and BP, shallow and tachpneic breathing. This nurse was unsuccessful getting ahold of someone to come perform a swallow evaluation. Patient did not tolerate the nurse bedside 10ml water swallow. Patient remains NPO with mouth swabs at bedside. Patient refusing swabs and mouth is dry and cracked with sores. Applied lip moisture throughout shift. Family visited patient during day. Will continue to monitor until shift change and nurse hand off. Room clean and clutter free with call light in reach.
[2022-06-26] VITALS (15 sets, daily range): BP systolic 136–174; BP diastolic 76–89; PULSE 90–114; RESP 16–24; TEMP 36.4–38.1; O2SAT 93–96
[2022-06-26] MEDS: iohexol 350 mg/mL 500 mL Btl (per mL) IV (00:01)
[2022-06-26] MEDS: ipratropium-albuterol 3 mL Neb INHALATION ×3 (02:45→13:58)
[2022-06-26] MEDS: D5-NS 0.45% + KCL 20 mEq 20 MEQ/1,000 ML BAG 75 MEQ IV ×2 (03:34→17:38)
[2022-06-26 04:34] LABS: Basophils # 0.1 10^3/uL (0.0-0.1); Basophils % 0.3 %; Eosinophils # 0.1 10^3/uL (0.0-0.8); Eosinophils % 0.5 %; Hematocrit 30.8 % (37.0-47.0); Lymphocytes # 0.9 10^3/uL (0.8-4.8); Lymphocytes % 4.5 %; Mean Corpuscular Hemoglobin 29.9 pg (28.0-34.0); Mean Platelet Volume 10.1 fL (7.4-10.4); Monocytes # 0.8 10^3/uL (0.2-0.9); Monocytes % 3.9 %; Neutrophils # 17.43 10^3/uL (1.8-7.7); Neutrophils % 86.1 %; Nucleated Red Blood Cells % 0 %; Platelet Count 443 10^3/cmm (130-400); Red Blood Count 3.35 10^6/uL (4.1-5.3); Red Cell Distribution Width 18.7 % (12.1-15.1); White Blood Count 20.2 10^3/uL (4.0-10.0)
[2022-06-26 04:38] LABS: Mean Corpuscular HGB Conc 32.5 g/dL (30.0-36.0); Mean Corpuscular Volume 91.9 fl (81-99)
[2022-06-26 05:00] LABS: Alanine Aminotransferase 31 U/L (0-33); Albumin Level 1.8 g/dL (3.5-5.2); Alkaline Phosphatase 169 U/L (35-105); Anion Gap 12.4 (5-19); Aspartate Amino Transferase 27 U/L (0-32); Blood Urea Nitrogen 8 mg/dL (8-23); Calcium 7.4 mg/dL (8.5-10.5); Carbon Dioxide 25 mmol/L (22-29); Chloride 104 mmol/L (98-107); Globulin 3.6 g/dL (1.3-4.6); Glucose 115 mg/dL (65-115); Osmolality Calculated 285 mOsm/kg (285-295); Potassium 3.4 mmol/L (3.5-5.1); Sodium 138 mmol/L (136-145); Total Bilirubin 1.1 mg/dL (0.15-1.2); Total Protein 5.4 g/dL (6.6-8.7)
[2022-06-26] MEDS: meropenem 1,000 MG in sodium chloride 0.9% (plus) 50 ML 100 MG IV ×3 (05:46→21:58)
[2022-06-26] MEDS: pantoprazole 40 mg SDV IVP ×2 (09:42→21:39)
--- NOTE | 2022-06-26 11:02 | USCV_ITS ---
Farrah Velez Age: 81 Gender: F : 1940 Exam Date: 06/26/2022 11:41 Ordering Phys: Henry Thomas MD Technologist: NESTOR Exam Location: [facility] [place] Indication: dvt PROCEDURES: Venous duplex imaging was performed in bilateral lower extremities. The following venous structures were evaluated: common femoral vein, profunda vein, proximal portion of the greater saphenous vein, superficial femoral vein, and the popliteal vein. In addition, the posterior tibial veins were evaluated. In addition, the posterior tibial and peroneal trunk were evaluated. CONCLUSIONS No evidence of right lower extremity DVT. No evidence of left lower extremity DVT. Charanjit Hodge MD (Electronically Signed) Final Date: 26 June 2022 17:28 S
[2022-06-26 13:02] LABS: D Dimer 5.93 ug/mIFEU (0-0.59)
[2022-06-26] MEDS: heparin 5,000 unit/mL INJ 1 mL 5000 UNIT SUBCUT ×2 (13:34→23:53)
--- NOTE | 2022-06-26 13:59 | P.PN_ITS ---
Subjective Subjective: No acute events overnight. Patient has remained hemodynamically stable and afebrile. On examination on room air. Sitting up in recliner today. Working with physical therapy. On examination patient looks little depressed and withdrawn. Had a jazmin conversation with the patient that she has a severe illness and infection and if she wants to improve she will need to continue with physical therapy and optimize nutrition orally as much as she can. She states she wants to live and is agreeable and try to do as much as she can. Though when she is trying to drink her Ensure to the straw she is not strong enough to suck the fluid up. Discussed with speech therapy team. Patient is not able to swallow because of weakness. Patient has agreed to try and drink as much as she can. Vitals/I&O/Wt Last Vital Signs Temp 98 F 06/26/22 11:30 Pulse 106 H 06/26/22 11:30 Resp 19 H 06/26/22 11:30 BP 136/82 06/26/22 11:30 Pulse Ox 96 06/26/22 11:30 O2 Del Method 06/26/22 07:44 O2 Flow Rate 2 06/25/22 15:04 FiO2 2 06/25/22 01:30 06/25/22 06/26/22 06/26/22 22:59 06:59 14:59 Intake Total 1250 / 1450 460 / 1910 Output Total 2150 / 2150 720 / 2870 Balance -900 / -700 -260 / -960 Weight last 48 hrs Weight 51.313 kg Physical Exam Narrative: Family at bedside. Const: COMMON NORMALS: alert OTHER: She is awake, but answers some questions. HENMT: COMMON NORMALS: oropharynx normal Eye: COMMON NORMALS: Equal, round and reactive pupils present, EOMs intact bilaterally and conjunctivae normal CONJUNCTIVA: Yes conjunctivae normal PUPIL: Yes Equal, round and reactive pupils present OTHER: Nasal phill resolved. Neck/C-Spine: COMMON NORMALS: no JVD Resp: COMMON NORMALS: normal respiratory effort and clear to auscultation bilaterally AUSCULTATION: clear to auscultation bilaterally Cardio: COMMON NORMALS: no JVD, regular rhythm, S1 normal heart sound present, S2 normal heart sound present and No murmurs present (Cardio) RHYTHM: regular rhythm HEART SOUNDS: S1 normal heart sound present and S2 normal heart sound present GI: COMMON NORMALS: Normal to inspection, nondistended, normoactive bowel sounds present, Soft to palpation and non-tender PALPATION: Yes Soft to palpation Extremity: COMMON NORMALS: no joint enlargement and no pedal edema Neuro: COMMON NORMALS: moves all extremities SENSORIUM/ORIENTATION: Yes alert OTHER: Both lower extremities weak dropping to bed. Skin: COMMON NORMALS: no rashes or lesions noted GENERAL SKIN EXAM: no rash es or lesions noted OTHER: BL feet cool to touch. Left foot biphasic DP and PT. Right foot monophasic DP and PT pulses present. Right foot purplish discoloration patches. Medial inferior aspect. Urinary Catheter Management: [place]: Cath Placed During This Visit: yes Reason for Continuing Indwelling Catheter: Acute Urinary Retention or Obstruction Urinary Catheter Date of Insertion: 06/19/22 Urinary Catheter Time of Insertion: 12:50 Data 06/26/22 04:06 06/26/22 04:06 Micro: Microbiology 06/25/22 06:26 Bacterial Antigens - Final Urine,Clean Catch 06/25/22 06:26 Legionella Urinary Antigen - Final Urine Catheterized A&P Assessment and plan (1) Sepsis: Sepsis without shock. Present on admission. Secondary to ESBL E. coli UTI along with necrotizing pneumonia most likely aspiration. Target organ dysfunction is acute encephalopathy and acute kidney injury. Blood cultures positive for Streptococcus pneumonia. Repeat blood cultures so far negative. Continue with meropenem which should cover both for E. coli and Streptococcus pneumonia. MRSA negative. Plan to continue meropenem for overall 7-day course after that switch to IV ceftriaxone for overall 4-week course given Streptococcus pneumonia bacteremia. Qualifiers: Acute renal failure type: unspecified Sepsis acute organ dysfunction status: with acute organ dysfunction Sepsis type: sepsis due to unspecified organism Severe sepsis acute organ dysfunction type: acute renal failure Severe sepsis shock status: without septic shock Qualified Code(s): A41.9 - Sepsis, unspecified organism; R65.20 - Severe sepsis without septic shock; N17.9 - Acute kidney failure, unspecified (2) Pneumonia: High concerns for aspiration pneumonia with right lower lobe lung abscess. Blood culture positive Streptococcus pneumonia. Antibiotic as above. Continue with DuoNebs every 6 hour. Oxygen supplementation keeping saturation over 92%. Will consult pulmonology for further recommendations. Qualifiers: Aspiration pneumonia type: due to vomit Laterality: right Lung location: lower lobe of lung Pneumonia type: aspiration pneumonia Qualified Code(s): J69.0 - Pneumonitis due to inhalation of food and vomit (3) Abscess of lung: CT chest results appreciated. Consistent with few micro abscesses. (4) Acute hypernatremia: Resolved. Continue with the same IV fluids for now. Continue check BMP every 12 hours. Family is agreeable for short-term for fluid boluses without feeds. (5) Acute anemia: Post 3 unit blood transfusion overall with last transfusion on 06/25. Stool for occult blood negative. Most likely secondary to sepsis. Continue with IV iron supplementation. Protonix IV 40 twice daily. Can plan for a possibility of EGD/colonoscopy once patient becomes hemodynamically stable and less critical. CT abdomen pelvis ruled out retroperitoneal/psoas hematoma. Stool for occult blood negative. Nursing reporting patient having slow intermittent rectal versus vagina. Lower quadrant ultrasound negative for any vagina lower uterine masses. We will continue to monitor. (6) Aphasia: Appreciate speech evaluation. Patient fairly weak and does not show any interest in drinking. Will continue to encourage. PT/OT. Out of bed to chair. Will add Remeron 40 mg oral daily. Start on full liquid diet with protein shakes. (7) Acute kidney injury: Resolved. Present admission secondary sepsis and dehydration. Medical reconciliation done for nephrotoxic drugs. Monitor BMP every 12 hours. (8) Urinary tract infection: ESBL E. coli UTI. Treatment as above. Qualifiers: Hematuria presence: without hematuria Urinary tract infection type: site unspecified Qualified Code(s): N39.0 - Urinary tract infection, site not specified (9) Transaminitis: Secondary to severe sepsis. Acute hepatitis panel negative. (10) PAD (peripheral artery disease): Cool to touch bilateral feet, biphasic pulses PT and DP on the left. Right side monophasic PT and DP. Pulses present. Patches of discoloration of the foot. Start aspirin, statin. Will need additional outpatient evaluation. Granddaughter states she has had chronic issues with the right leg. (11) Goals of care, counseling/discussion: Discussed in detail with family at bedside including son and daughter. We discussed that patient is critically sick secondary to all the above mentioned illnesses. We discussed that if family is agreeable we will plan to change the treatment and monitor for clinical improvement within next 72 hours. If patient does not improve in the next 40 to 72 hours can plan to transition to hospice. Family is agreeable. Family is also agreeable for short-term NG tube placement for free water flushes if needed for hypernatremia. (12) Physical deconditioning: Plan CODE STATUS: DNR/DNI. Protonix every 12 hourly for PUD prophylaxis SCDs for DVT prophylaxis. Pain management: IV Tylenol every 12 hourly, Dilaudid 0.2 mg every 4 hour as needed. Discharge planning: Discussed with patient's granddaughter and son in detail. Discussed that patient is fairly weak and will need extensive physical therapy going forward to get back to baseline. Also discussed that patient would do do better under monitoring. Family verbalized understanding and are agreeable to SNF placement. Case management alerted. Care discussed in detail with family at bedside multiple times. All the qu estions were answered. Attestations Medical Necessity Statement*: Requires further hospitalization for management of streptococcal pneumonia bacteremia, physical deconditioning, lung abscess while safe discharge planning is sought. Time Spent in Patient Care: Greater than 35 minutes Coding Level of Care Code Acute Dental Technologist for Chg Fwd Exam Comprehensive Diagnoses Sepsis A41.9; R65.20; N17.9 Acute renal failure type: unspecified Sepsis acute organ dysfunction status: with acute organ dysfunction Sepsis type: sepsis due to unspecified organism Severe sepsis acute organ dysfunction type: acute renal failure Severe sepsis shock status: without septic shock Pneumonia J69.0 Aspiration pneumonia type: due to vomit Laterality: right Lung location: lower lobe of lung Pneumonia type: aspiration pneumonia Abscess of lung J85.2 Acute hypernatremia E87.0 Acute anemia D64.9 Aphasia R47.01 Acute kidney injury N17.9 Urinary tract infection N39.0 Hematuria presence: without hematuria Urinary tract infection type: site unspecified Transaminitis R74.01 PAD (peripheral artery disease) I73.9 Goals of care, counseling/discussion Z71.89 Physical deconditioning R53.81
[2022-06-26] MEDS: HYDROmorphone 1 mg/mL INJ 1 mL 0.2 MG IVP (14:45)
--- NOTE | 2022-06-26 15:18 | P.CONIM_ITS ---
Providers/Reason For Consult Consulting Physician/Specialty*: Binh Curry MD/Pulmonology Reason for Consult*: Right lower lobe pneumonia with microabscess Requesting Physician: Henry Thomas MD Attending Physician: Henry Thomas MD Primary Care Provider: Rashawn Reed MD History of Present Illness History of Present Illness Farrah Velez is a 81 year old female with past medical history of hypertension-admitted to hospital on 06/19/2022 for not feeling well, lethargic and chronic cough which has gotten significantly worse and decreased appetite. Patient's granddaughter reported that patient developed viral illness with diarrhea about a week ago. CT head in ER showed moderate cerebral atrophy. In the emergency room patient was requiring 3 L nasal cannula-baseline she was on room air, with respiratory rate 28-30. Initial ABG 7.5 //28 on 3 L nasal cannula. Additional work-up showed leukocytosis 18 K, anion gap metabolic acidosis with lactic acid 5.4, elevated liver enzymes, UA 4+ bacteria 15-25 RBC. Rapid influenza antigen negative. Chest x-ray showing right lower lobe opacity. Patient was admitted to medical floors for severe sepsis with endorgan damage KATHRYN-possibly due to UTI/pneumonia and started on cefepime as well as vancomycin. Patient was able to maintain her blood pressure Subsequent urine cultures grew ESBL E. coli and blood cultures 06/19/2022 grew pansensitive strep pneumonia, MRSA negative, unable to obtain sputum cultures due to weak cough, urine bacterial antigens negative -Her antibiotics were switched to meropenem to cover ESBL E. coli UTI as well as strep pneumonia bacteremia -CT chest 06/25/2022 showed dense consolidation noted in right lower lobe consistent with RLL pneumonia and there were some areas of decreased attenuation within consolidated right lower lobe with rounded foci of air suspicious for pulmonary abscesses. -Pulmonary consult requested to evaluate patient in this context of pulmonary abscesses within the right lower lobe pneumonia I have seen patient at bedside today-she is sitting in chair-currently on room air saturating greater than 90% No fever spikes in last 24 hours, normotensive -White count still elevated -She is on meropenem since 06/22/2022-and appears to be clinically improving based on my discussion with hospitalist taking care of the patient -Speech evaluated patient and her swallowing is not optimal and patient is at high risk for aspiration Review of Systems General: Reports: 10 or more systems reviewed and unremarkable except in HPI and below Medications/Allergies Home Medications Medication Instructions Recorded Confirmed Last Taken Type acetaminophen 325 mg capsule 325 mg PO QID PRN Pain 06/19/22 06/19/22 Unknown History (Tylenol) calcium carbonate 600 mg-vitamin 1 tab PO BID 06/19/22 06/19/22 Unknown History D3 10 mcg (400 unit) tablet (Calcium 600 + D(3)) chlorpheniramine 2 1 tab PO Q4H PRN Congestion 06/19/22 06/19/22 Unknown History mg-pseudoephedrin 30 mg-acetaminophen 500 mg tablet dimenhydrinate 50 mg tablet 50 mg PO Q8H PRN Nausea 06/19/22 06/19/22 Unknown History (Motion Sickness) docusate sodium 100 mg tablet 100 mg PO DAILY PRN Constipation 06/19/22 06/19/22 Unknown History lisinopril 10 1 tab PO DAILY 06/19/22 06/19/22 Unknown History mg-hydrochlorothiazide 12.5 mg tablet loperamide 2 mg capsule 2 mg PO Q6H PRN Diarrhea 06/19/22 06/19/22 Unknown History sodium chloride 0.65 % nasal spray 1 spray intranasal BID PRN 06/19/22 06/19/22 Unknown History aerosol ([place] Saline) Congestion Allergies Allergy/AdvReac Type Severity Reaction Status Date / Time No Known Allergies Allergy Verified 06/19/22 11:56 Current Medications Generic Name Dose Route Start Last Admin Trade Name Freq PRN Reason Stop Dose Admin Albuterol/Ipratropium 3 ml 06/22/22 14:00 06/26/22 13:58 Ipratropium-Albuterol 3 Ml Neb INHALATION 3 ml Q6H.RESP MOISES Administration Docusate Sodium 100 mg 06/25/22 18:00 06/26/22 09:24 Docusate Sodium 100 Mg Capsule PO Not Given BID MOISES Haloperidol Lactate 5 mg 06/22/22 15:58 06/23/22 09:44 Haloperidol Inj 5 Mg/Ml Inj 1 Ml IM 5 mg ONCE PRN Administration Prior to MRI if needed for agitation Heparin Sodium (Porcine) 5,000 unit 06/26/22 11:15 06/26/22 13:34 Heparin 5,000 Unit/Ml Inj 1 Ml SUBCUT 5,000 unit Q12H MOISES Administration Hydromorphone HCl 0.2 mg 06/25/22 10:28 06/26/22 14:45 Hydromorphone 1 Mg/Ml Inj 1 Ml IVP 0.2 mg Q6H PRN Administration PS6-10 Meropenem 1,000 mg/ Sodium 50 mls @ 100 mls/hr 06/22/22 14:00 06/26/22 14:43 Chloride IV Infused Q8H MOISES Infusion Iron Sucrose 200 mg/ Sodium 110 mls @ 220 mls/hr 06/22/22 16:30 06/25/22 16:54 Chloride IV 06/26/22 16:59 Infused Q24H MOISES Infusion Potassium Chloride/Dextrose/Sod Cl 20 meq in 1,000 mls @ 75 mls/hr 06/24/22 17:45 06/26/22 03:34 D5-Ns 0.45% + Kcl 20 Meq IV 75 mls/hr .[id number] MOISES Administration Lanolin 1 applic 06/24/22 13:23 06/24/22 15:10 Lanolin Oint 7 Gm TOPICAL 1 applic PRN PRN Administration DRYNESS Pantoprazole Sodium 40 mg 06/21/22 08:44 06/26/22 09:42 Pantoprazole 40 Mg Sdv IVP 40 mg Q12H MOISES Administration PFSH Acute PFSH: Medical History Allergic rhinitis History of hip fracture Surgical History H/O tubal ligation Family History Father Lung cancer Mother Cancer Sister Multiple sclerosis Brother Diabetes Social History Smoking and tobacco status: never smoked Lives independently: No Marital status: / Vitals/I&O/Wt Last Vital Signs Temp 98 F 06/26/22 11:30 Pulse 106 H 06/26/22 14:08 Resp 20 H 06/26/22 13:58 BP 136/82 06/26/22 11:30 Pulse Ox 95 06/26/22 13:58 O2 Del Method 06/26/22 13:58 O2 Flow Rate 2 06/25/22 15:04 FiO2 2 06/25/22 01:30 06/26/22 06/26/22 06/26/22 06:59 14:59 22:59 Intake Total 460 / 1910 50 / 50 Output Total 720 / 2870 Balance -260 / -960 50 / 50 Weight last 48 hrs Weight 113 lb 2 oz Physical Exam Narrative: General: alert, NAD HEENT: conj clear, EOMI, PERRL, mmm, Neck: supple, no meningismus Heme: no cervical LAP Respiratory: Inspection: No visible deformity of the chest wall Palpation: Trachea is mildly deviated to the right, bilateral symmetric expansion Percussion: Bilateral tympanic percussion note both anterior and posteriorly Auscultation: Reduced breath sounds on right lower lung zone Cardiovascular: rrr, nl s1s2, no mrg Abdomen: soft, nt, nd, no r/g, bs+ Extremities: pulses +, no edema, no c/c : no CVA tenderness Skin: intact, no rash MSK: no back or neck pain Neurologic: grossly intact Urinary Catheter Management: [place]: Cath Placed During This Visit: yes Reason for Continuing Indwelling Catheter: Acute Urinary Retention or Obstruction Urinary Catheter Date of Insertion: 06/19/22 Urinary Catheter Time of Insertion: 12:50 Data 06/26/22 04:06 06/26/22 04:06 Other Labs: Radiology Impressions Head CT 06/19/22 11:40 Impression: Moderate cerebral atrophy. Gallbladder Ultrasound 06/19/22 13:28 Impression: Cholelithiasis. Carotid Doppler Study 06/19/22 15:41 IMPRESSION: 1. Mild calcified plaque in the proximal internal carotid arteries with less than 50% stenosis based on SRU criteria. REFERENCES: SRU CRITERIA. The degree of internal carotid artery stenosis is based on criteria defined by the Society of Radiologists in Ultrasound (SRU). Normal is no stenosis. Mild is less than 50% stenosis. Moderate is 50-69% stenosis. Severe is greater than 69% stenosis to near occlusion. Near occlusion is a markedly narrowed lumen. Total occlusion is no detectable patent lumen. Hip CT 06/21/22 10:02 IMPRESSION: 1. No acute right hip fracture identified. 2. Osseous changes related to old right-sided pubic bone fracture. Abdomen/Pelvis CT 06/21/22 10:04 IMPRESSION: 1. Dense consolidation in the right lung concerning for pneumonia. Findings also concerning for possible right lower lobe pulmonary abscesses. 2. Trace left-sided pleural fluid. 3. No retroperitoneal hematoma identified. 4. Multilevel compression deformities in the lower thoracic and lumbar spine. No comparisons available. Correlate with any focal pain in this region. 5. Osseous changes consistent with old right pubic bone fracture. ADDENDUM: 06/21/22 1148 THIS REPORT CONTAINS FINDINGS THAT MAY BE CRITICAL TO PATIENT CARE. The findings were verbally communicated via telephone conference with AYLIN Nunez at 11:46 AM [employer]IS[employer] on 06/21/2022. The findings were acknowledged and understood. Chest X-Ray 06/23/22 10:28 Impression: Satisfactory placement of nasogastric tube. Head MRI 06/23/22 15:58 IMPRESSION: 1. Very limited evaluation of the brain due to significant motion. Exam nearly nondiagnostic for areas of infarct. A large infarct is not present. 2. Moderate to severe small vessel ischemic disease and atrophy. Pelvis Ultrasound 06/25/22 10:25 IMPRESSION: 1. Uterus is not well visualized due to overlying bowel gas. 2. Neither ovary is visualized. 3. No evidence of cystic or solid pelvic mass. Chest CT 06/25/22 10:26 IMPRESSION: 1. Dense consolidation noted of the right lower lobe, consistent with right lower lobe pneumonia. 2. There are areas of decreased attenuation within the consolidated right lower lobe. There are rounded foci of air outside the bronchial tree also noted. The findings are suspicious for pulmonary abscesses, measuring up to 2.3 cm in diameter. This has worsened when compared to 06/21/2022. 3. No significant infiltrate in the left lung. 4. Minimal bilateral pleural effusions. 5. Mild cardiomegaly is noted. 6. Multiple lower thoracic spine compression fractures noted, of undetermined age. This appears unchanged from CT abdomen and pelvis study of 06/21/2022. Laboratory Results WBC 18.1 10^3/uL (4.0-10.0) H 06/27/22 03:35 RBC 3.58 10^6/uL (4.1-5.3) L 06/27/22 03:35 Hgb 10.6 g/dL (11.5-15.3) L 06/27/22 03:35 Hct 34.2 % (37.0-47.0) L 06/27/22 03:35 MCV 95.5 fl (81-99) 06/27/22 03:35 MCH 29.6 pg (28.0-34.0) 06/27/22 03:35 MCHC 31.0 g/dL (30.0-36.0) 06/27/22 03:35 RDW 18.6 % (12.1-15.1) H 06/27/22 03:35 Plt Count 486 10^3/cmm (130-400) H 06/27/22 03:35 MPV 10.4 fL (7.4-10.4) 06/27/22 03:35 Neut % (Auto) 85.9 % 06/27/22 03:35 Lymph % (Auto) 4.6 % 06/27/22 03:35 [place] % (Auto) 5.2 % 06/27/22 03:35 Eos % (Auto) 0.6 % 06/27/22 03:35 Baso % (Auto) 0.3 % 06/27/22 03:35 Neut # (Auto) 15.55 10^3/uL (1.8-7.7) H 06/27/22 03:35 Lymph # (Auto) 0.8 10^3/uL (0.8-4.8) 06/27/22 03:35 [place] # (Auto) 0.9 10^3/uL (0.2-0.9) 06/27/22 03:35 Eos # (Auto) 0.1 10^3/uL (0.0-0.8) 06/27/22 03:35 Baso # (Auto) 0.1 10^3/uL (0.0-0.1) 06/27/22 03:35 Nucleated RBC % (auto) 0 % 06/27/22 03:35 Total Counted 100 (0-100) 06/23/22 06:39 Atypical Lymphs % 0.0 % (0-5) 06/23/22 06:39 Absolute Neutrophils 20.1 10^3/cmm (1.4-6.5) H 06/23/22 06:39 Segmented Neutrophils 81 % 06/23/22 06:39 Abs Segm Neuts (Man) 17.9 10/cmm (1.6-7.1) H 06/23/22 06:39 Band Neutrophils 10.0 % 06/23/22 06:39 Abs Band Neuts (Man) 2.2 10^3/cmm (0.0-1.2) H 06/23/22 06:39 Absolute Lymphocytes 0.9 10^3/cmm (1.2-3.4) L 06/23/22 06:39 Lymphocytes (Manual) 4 % 06/23/22 06:39 Monocytes (Manual) 3.0 % 06/23/22 06:39 Absolute Monocytes 0.7 10^3/cmm (0.1-0.6) H 06/23/22 06:39 Eosinophils (Manual) 0 % 06/23/22 06:39 Absolute Eosinophils 0.0 10^3/cmm (0.0-0.7) 06/23/22 06:39 Basophils (Manual) 0.0 % 06/23/22 06:39 Absolute Basophils 0.0 10^3/cmm (0.0-0.2) 06/23/22 06:39 Metamyelocytes 2.0 % 06/23/22 06:39 Myelocytes 1.0 % 06/21/22 03:53 Nucleated RBCs # 0.0 /100WBC 06/27/22 03:35 Toxic Granulation 1+ H 06/21/22 03:53 Toxic Vacuolation 1+ H 06/21/22 03:53 Platelet Estimate Normal (Normal) 06/23/22 06:39 Hypochromasia 1+ H 06/23/22 06:39 Macrocytosis 1+ H 06/21/22 03:53 D-Dimer 5.93 ug/mIFEU (0-0.59) H 06/26/22 11:29 Specimen Type Arterial 06/19/22 12:36 Sample Site Brachial, left 06/19/22 12:36 ABG pH 7.52 (7.35-7.45) H 06/19/22 12:36 ABG pCO2 35.1 mmHg (35-45) 06/19/22 12:36 ABG pO2 72.3 mmHg (80.0-100.0) L 06/19/22 12:36 ABG HCO3 28.5 mmol/L (22-26) H 06/19/22 12:36 ABG Base Excess 5.4 mmol/L (-2.0-2.0) H 06/19/22 12:36 Sam Test N/a 06/19/22 12:36 Hematocrit 32.5 % (37-47) L 06/19/22 12:36 O2 Delivery Device Nc 06/19/22 12:36 O2 Liters/Min 4.0 % 06/19/22 12:36 FiO2 36.0 % 06/19/22 12:36 Sand Screener Operator ID [id number] 06/19/22 12:36 Sodium 138 mmol/L (136-145) 06/27/22 03:35 Potassium 3.4 mmol/L (3.5-5.1) L 06/27/22 03:35 Chloride 104 mmol/L (98-107) 06/27/22 03:35 Carbon Dioxide 25 mmol/L (22-29) 06/27/22 03:35 Anion Gap 12.4 (5-19) 06/27/22 03:35 BUN 8 mg/dL (8-23) 06/27/22 03:35 Creatinine 0.5 mg/dL (0.5-0.9) 06/27/22 03:35 GFR Calculation Not Reportable 06/27/22 03:35 Glucose 121 mg/dL (65-115) H 06/27/22 03:35 Calculated Osmolality 286 mOsm/kg (285-295) 06/27/22 03:35 Lactic Acid 5.4 mmol/L (0.5-2.2) H* 06/19/22 13:08 Lactic Acid (Sepsis) 2.2 mmol/L (0.5-2.2) 06/19/22 16:05 Calcium 7.8 mg/dL (8.5-10.5) L 06/27/22 03:35 Magnesium 1.9 mg/dL (1.7-2.3) 06/22/22 02:32 Total Bilirubin 0.8 mg/dL (0.15-1.2) 06/27/22 03:35 Direct Bilirubin 0.60 mg/dL (0.00-0.30) H 06/23/22 06:39 AST 28 U/L (0-32) 06/27/22 03:35 ALT 30 U/L (0-33) 06/27/22 03:35 Alkaline Phosphatase 185 U/L (35-105) H 06/27/22 03:35 Total Protein 6.1 g/dL (6.6-8.7) L 06/27/22 03:35 Albumin 2.0 g/dL (3.5-5.2) L 06/27/22 03:35 Globulin 4.1 g/dL (1.3-4.6) 06/27/22 03:35 Vitamin B12 > 2000 pg/mL (232-1245) H 06/22/22 02:32 Folate 17.9 ng/mL (4.8-37.3) 06/22/22 06:39 Procalcitonin 2.85 ng/mL (0-0.5) H 06/22/22 02:32 TSH 2.14 uIU/mL (0.27-4.20) 06/22/22 02:32 Urine Color Yellow (Yellow) 06/22/22 13:52 Urine Appearance Clear (CLEAR) 06/22/22 13:52 Urine pH 5 (5-7) 06/22/22 13:52 Ur Specific [place] 1.015 (1.005-1.030) 06/22/22 13:52 Urine Protein Trace (Negative) 06/22/22 13:52 Urine Glucose (UA) Norm (Normal) 06/22/22 13:52 Urine Ketones Negative (Negative) 06/22/22 13:52 Urine Blood 2+ (Negative) H 06/22/22 13:52 Urine Nitrate Negative (Negative) 06/22/22 13:52 Urine Bilirubin Neg (Negative) 06/22/22 13:52 Urine Urobilinogen Norm mg/dL (Negative) 06/22/22 13:52 Ur Leukocyte Esterase Negative (Negative) 06/22/22 13:52 Urine RBC 0-4 /hpf (0-2) H 06/22/22 13:52 Urine WBC 0-4 /hpf (0-5) H 06/22/22 13:52 Ur Squamous Epith Cells 0-4 /hpf (0-5) H 06/22/22 13:52 Amorphous Sediment 1+ /hpf 06/22/22 13:52 Urine Bacteria Trace /hpf (NONE) 06/22/22 13:52 Urine Mucus Trace /hpf 06/22/22 13:52 Acetaminophen < 5.0 ug/mL (10-30) L 06/19/22 11:30 Hepatitis A IgM Ab Non-reactive (Nonreactive) 06/21/22 09:30 Hep Bs Antigen Non-reactive (Nonreactive) 06/21/22 09:30 Hep B Core IgM Ab Non-reactive (Nonreactive) 06/21/22 09:30 Hepatitis C Antibody Non-reactive (Nonreactive) 06/21/22 09:30 Influenza Type A Ag Negative (Negative) 06/19/22 13:20 Influenza Type B Ag Negative (Negative) 06/19/22 13:20 SARS-CoV-2 Ag (Rapid) negative (Negative) 06/19/22 13:20 Blood Type O Positive 06/25/22 15:09 Rho(D) Type Positive 06/25/22 15:09 Antibody Screen Negative 06/25/22 15:09 Crossmatch See Detail 06/25/22 15:09 Micro: Microbiology 06/25/22 06:26 Bacterial Antigens - Final Urine,Clean Catch 06/25/22 06:26 Legionella Urinary Antigen - Final Urine Catheterized A&P Assessment and plan (1) Necrotizing pneumonia: (2) Streptococcal pneumonia: (3) Streptococcal bacteremia: (4) Urinary tract infection: Qualifiers: Hematuria presence: without hematuria Urinary tract infection type: site unspecified Qualified Code(s): N39.0 - Urinary tract infection, site not specified Plan #Right lower lobe consolidation with microabscesses-necrotizing pneumonia is likely secondary to strep pneumonia #Strep pneumonia bacteremia on 06/19/2022 blood cultures-repeat cultures negative to date #Urine cultures positive for ESBL E. coli 06/19/2022 -Microabscesses are not recommended to be drained due to high risk for pulmonary cutaneous fistula -Continue treatment with antibiotics-blood cultures are positive for pansensitive strep pneumonia-which is likely the culprit causing RLL necrotizing pneumonia; however agree antibiotic coverage with meropenem given coexisting ESBL E. coli UTI -After completing 7 days treatment with meropenem to cover ESBL E. coli UTI-can switch to p.o. Augmentin for 10 more days which appears to be sensitive for her strep bacteremia -With poor swallow reflex-patient is at risk for aspiration-meropenem will cover anaerobes as well -Currently patient is afebrile, hemodynamically stable, saturating well on room air, appears to be clinically improving -If patient deteriorates-we will plan for bronchoscopy for BAL -Encourage bedside physical therapy -Patient is DNR/DNI Recommendations conveyed to RN, hospitalist taking care of the patient Consult Attestations Medical Necessity Statement: Deferred to hospitalist taking care of the patient Time Spent in Patient Care: Greater than 35 minutes (>than 50% of time spent in counselling and/or direct pt care on unit) . Coding Level of Care Code New Pt Acute Hydrant Setter for Chg Fwd Patient Type New History Comprehensive Exam Comprehensive Medical Decision Making Moderate Complexity Diagnoses Necrotizing pneumonia J85.0 Streptococcal pneumonia J15.4 Streptococcal bacteremia R78.81; B95.5 Urinary tract infection N39.0 Hematuria presence: without hematuria Urinary tract infection type: site unspecified Time Spent (min) 45
[2022-06-26] MEDS: iron sucrose 200 MG in sodium chloride 0.9% (100 ml) 100 ML 220 MG IV (16:48)
[2022-06-26] MEDS: docusate sodium 100 mg Capsule PO (18:09)
[2022-06-26] MEDS: mirtazapine 30 mg Tablet PO (22:05)
[2022-06-27] VITALS (10 sets, daily range): BP systolic 133–165; BP diastolic 77–81; PULSE 99–115; RESP 15–19; TEMP 36.8–38; O2SAT 93–98
[2022-06-27 04:29] LABS: Basophils # 0.1 10^3/uL (0.0-0.1); Basophils % 0.3 %; Eosinophils # 0.1 10^3/uL (0.0-0.8); Eosinophils % 0.6 %; Hematocrit 34.2 % (37.0-47.0); Hemoglobin 10.6 g/dL (11.5-15.3); Lymphocytes # 0.8 10^3/uL (0.8-4.8); Lymphocytes % 4.6 %; Mean Corpuscular Hemoglobin 29.6 pg (28.0-34.0); Mean Corpuscular Volume 95.5 fl (81-99); Mean Platelet Volume 10.4 fL (7.4-10.4); Monocytes # 0.9 10^3/uL (0.2-0.9); Monocytes % 5.2 %; Neutrophils # 15.55 10^3/uL (1.8-7.7); Neutrophils % 85.9 %; Nucleated Red Blood Cells % 0 %; Platelet Count 486 10^3/cmm (130-400); Red Blood Count 3.58 10^6/uL (4.1-5.3); Red Cell Distribution Width 18.6 % (12.1-15.1); White Blood Count 18.1 10^3/uL (4.0-10.0)
[2022-06-27 05:09] LABS: Alanine Aminotransferase 30 U/L (0-33); Alkaline Phosphatase 185 U/L (35-105); Aspartate Amino Transferase 28 U/L (0-32); Blood Urea Nitrogen 8 mg/dL (8-23); Calcium 7.8 mg/dL (8.5-10.5); Carbon Dioxide 25 mmol/L (22-29); Globulin 4.1 g/dL (1.3-4.6); Glucose 121 mg/dL (65-115); Potassium 3.4 mmol/L (3.5-5.1); Total Bilirubin 0.8 mg/dL (0.15-1.2); Total Protein 6.1 g/dL (6.6-8.7)
[2022-06-27] MEDS: meropenem 1,000 MG in sodium chloride 0.9% (plus) 50 ML 100 MG IV ×3 (05:45→22:10)
[2022-06-27] MEDS: ipratropium-albuterol 3 mL Neb INHALATION ×3 (09:31→20:44)
[2022-06-27 11:11] LABS: Anion Gap 12.4 (5-19); Chloride 104 mmol/L (98-107); Osmolality Calculated 286 mOsm/kg (285-295); Sodium 138 mmol/L (136-145)
[2022-06-27] MEDS: pantoprazole 40 mg SDV IVP ×2 (11:19→20:00)
[2022-06-27] MEDS: heparin 5,000 unit/mL INJ 1 mL 5000 UNIT SUBCUT ×2 (11:20→23:24)
--- NOTE | 2022-06-27 15:06 | P.PN_ITS ---
Subjective Subjective: No acute events overnight. Patient has remained hemodynamically stable and afebrile. Today morning again seen sitting in the recliner. Saturating more than 95% on room air. Remains confused considerably weak. Discussed about using incentive spirometry in detail with the patient. She is barely able to make it up to 500 and gets pretty tired after 3-4 attempts. Patient was able to eat some of her soup and some Glucerna today with speech therapy. Continues to remain reluctant with oral diet but improving. Vitals/I&O/Wt Last Vital Signs Temp 99.0 F 06/27/22 12:00 Pulse 100 06/27/22 14:10 Resp 18 06/27/22 14:00 BP 133/81 06/27/22 12:00 Pulse Ox 98 06/27/22 14:00 O2 Del Method 06/27/22 14:00 O2 Flow Rate 2 06/25/22 15:04 FiO2 2 06/25/22 01:30 06/27/22 06/27/22 06/27/22 06:59 14:59 22:59 Intake Total 910 / 2590 Output Total 990 / 1590 Balance -80 / 1000 Weight last 48 hrs Weight 51.313 kg Physical Exam Narrative: Family at bedside. Const: COMMON NORMALS: alert OTHER: She is awake, but answers some questions. HENMT: COMMON NORMALS: oropharynx normal Eye: COMMON NORMALS: Equal, round and reactive pupils present, EOMs intact bilaterally and conjunctivae normal CONJUNCTIVA: Yes conjunctivae normal PUPIL: Yes Equal, round and reactive pupils present Neck/C-Spine: COMMON NORMALS: no JVD Resp: COMMON NORMALS: normal respiratory effort and clear to auscultation bilaterally AUSCULTATION: clear to auscultation bilaterally Cardio: COMMON NORMALS: no JVD, regular rhythm, S1 normal heart sound present, S2 normal heart sound present and No murmurs present (Cardio) RHYTHM: regular rhythm HEART SOUNDS: S1 normal heart sound present and S2 normal heart sound present GI: COMMON NORMALS: Normal to inspection, nondistended, normoactive bowel sounds present, Soft to palpation and non-tender PALPATION: Yes Soft to palpation Extremity: COMMON NORMALS: no joint enlargement and no pedal edema Neuro: COMMON NORMALS: moves all extremities SENSORIUM/ORIENTATION: Yes alert OTHER: Both lower extremities weak dropping to bed. Skin: COMMON NORMALS: no rashes or lesions noted GENERAL SKIN EXAM: no rashes or lesions noted OTHER: BL feet cool to touch. Left foot biphasic DP and PT. Right foot monophasic DP and PT pulses present. Right foot purplish discoloration patches. Medial inferior aspect. Urinary Catheter Management: [place]: Cath Placed During This Visit: yes Reason for Continuing Indwelling Catheter: Acute Urinary Retention or Obstruction Urinary Catheter Date of Insertion: 06/19/22 Urinary Catheter Time of Insertion: 12:50 Data 06/27/22 03:35 06/27/22 03:35 A&P Assessment and plan (1) Sepsis: Sepsis without shock. Present on admission. Secondary to ESBL E. coli UTI along with necrotizing pneumonia most likely aspiration. Target organ dysfunction is acute encephalopathy and acute kidney injury. Blood cultures positive for Streptococcus pneumonia. Repeat blood cultures so far negative. Continue with meropenem which should cover both for E. coli and Streptococcus pneumonia. MRSA negative. Plan to continue meropenem for overall 7-day course after that switch to IV ceftriaxone for overall 4-week course given Streptococcus pneumonia bacteremia. Last day of IV meropenem is 06/29 midnight. Qualifiers: Acute renal failure type: unspecified Sepsis acute organ dysfunction status: with acute organ dysfunction Sepsis type: sepsis due to unspecified organism Severe sepsis acute organ dysfunction type: acute renal failure Severe sepsis shock status: without septic shock Qualified Code(s): A41.9 - Sepsis, unspecified organism; R65.20 - Severe sepsis without septic shock; N17.9 - Acute kidney failure, unspecified (2) Pneumonia: High concerns for aspiration pneumonia with right lower lobe lung abscess. Blood culture positive Streptococcus pneumonia. Antibiotic as above. Continue with DuoNebs every 6 hour. Oxygen supplementation keeping saturation over 92%. Appreciate pulmonary recommendations. Qualifiers: Aspiration pneumonia type: due to vomit Laterality: right Lung location: lower lobe of lung Pneumonia type: aspiration pneumonia Qualified Code(s): J69.0 - Pneumonitis due to inhalation of food and vomit (3) Abscess of lung: CT chest results appreciated. Consistent with few micro abscesses. (4) Acute hypernatremia: Resolved. Continue with the same IV fluids for now. Continue check BMP every 12 hours. Family is agreeable for short-term for fluid boluses without feeds. (5) Acute anemia: Post 3 unit blood transfusion overall with last transfusion on 06/25. Hemoglobin stable more than 10 today. Stool for occult blood negative. Most likely secondary to sepsis. Continue with IV iron supplementation. Protonix IV 40 twice daily. Can plan for a possibility of EGD/colonoscopy once patient becomes hemo dynamically stable and less critical. CT abdomen pelvis ruled out retroperitoneal/psoas hematoma. Stool for occult blood negative. Nursing reporting patient having slow intermittent rectal versus vagina. Lower quadrant ultrasound negative for any vagina lower uterine masses. We will continue to monitor. (6) Aphasia: Appreciate speech evaluation. Patient fairly weak and does not show any interest in drinking. Seems to be improving Will frequent encouragement and trying one-to-one feeding. PT/OT. Out of bed to chair. Continue with Remeron 30 mg oral daily. Start on full liquid diet with protein shakes. (7) Acute kidney injury: Resolved. Present admission secondary sepsis and dehydration. Medical reconciliation done for nephrotoxic drugs. Monitor BMP every 12 hours. (8) Urinary tract infection: ESBL E. coli UTI. Treatment as above. Qualifiers: Hematuria presence: without hematuria Urinary tract infection type: site unspecified Qualified Code(s): N39.0 - Urinary tract infection, site not specified (9) Transaminitis: Secondary to severe sepsis. Acute hepatitis panel negative. (10) PAD (peripheral artery disease): Cool to touch bilateral feet, biphasic pulses PT and DP on the left. Right side monophasic PT and DP. Pulses present. Patches of discoloration of the foot. Start aspirin, statin. Will need additional outpatient evaluation. Granddaughter states she has had chronic issues with the right leg. (11) Goals of care, counseling/discussion: Discussed in detail with family at bedside including son and daughter. We discussed that patient is critically sick secondary to all the above mentioned illnesses. We discussed that if family is agreeable we will plan to change the treatment and monitor for clinical improvement within next 72 hours. If patient does not improve in the next 40 to 72 hours can plan to transition to hospice. Family is agreeable. Family is also agreeable for short-term NG tube placement for free water flushes if needed for hypernatremia. (12) Physical deconditioning: Patient is extremely physically deconditioned. Max assist on physical therapy. Not able to suck through a straw while trying to take liquid diet. Only going up to 3 50-500 on incentive spirometry. Continue with physical therapy and speech therapy. Patient does not want any kind of artificial feeds. Patient will need discharge to SNF for further rehabilitation and closer to discharge. Plan Hypertension: Goal blood pressure less than 140/90 mmHg. Patient having tachycardia most likely secondary severe physical deconditioning Started on metoprolol 25 mg twice daily. CODE STATUS: DNR/DNI. Protonix every 12 hourly for PUD prophylaxis SCDs for DVT prophylaxis. Pain management: IV Tylenol every 12 hourly, Dilaudid 0.2 mg every 4 hour as needed. Discharge planning: Discussed with patient's granddaughter and son in detail. Discussed that patient is fairly weak and will need extensive physical therapy going forward to get back to baseline. Also discussed that patient would do do better under monitoring. Family verbalized understanding and are agreeable to SNF placement. Case management alerted. Care discussed in detail with family at bedside multiple times. All the questions were answered. Attestations Medical Necessity Statement*: Requires further hospital streptococcal bacteremia in setting of lung abscess in setting of aspiration pneumonia, severe physical deconditioning with poor oral intake. Time Spent in Patient Care: Greater than 35 minutes Coding Level of Care Code Acute Bobbin Disker for [facility]g Fwd Exam Comprehensive Diagnoses Sepsis A41.9; R65.20; N17.9 Acute renal failure type: unspecified Sepsis acute organ dysfunction status: with acute organ dysfunction Sepsis type: sepsis due to unspecified organism Severe sepsis acute organ dysfunction type: acute renal failure Severe sepsis shock status: without septic shock Pneumonia J69.0 Aspiration pneumonia type: due to vomit Laterality: right Lung location: lower lobe of lung Pneumonia type: aspiration pneumonia Abscess of lung J85.2 Acute hypernatremia E87.0 Acute anemia D64.9 Aphasia R47.01 Acute kidney injury N17.9 Urinary tract infection N39.0 Hematuria presence: without hematuria Urinary tract infection type: site unspecified Transaminitis R74.01 PAD (peripheral artery disease) I73.9 Goals of care, counseling/discussion Z71.89 Physical deconditioning R53.81
[2022-06-27] MEDS: docusate sodium 100 mg Capsule PO (16:58)
[2022-06-27] MEDS: mirtazapine 30 mg Tablet PO (20:00)
[2022-06-27] MEDS: D5-NS 0.45% + KCL 20 mEq 20 MEQ/1,000 ML BAG 75 MEQ IV (20:00)
[2022-06-27] MEDS: metoprolol tartrate 25 mg Tablet PO (20:01)
[2022-06-28] VITALS (9 sets, daily range): BP systolic 149–159; BP diastolic 81–93; PULSE 88–102; RESP 15–19; TEMP 36.6–37.9; O2SAT 91–96
[2022-06-28] MEDS: ipratropium-albuterol 3 mL Neb INHALATION ×2 (03:34→21:01)
[2022-06-28 04:05] LABS: Basophils # 0.1 10^3/uL (0.0-0.1); Basophils % 0.4 %; Eosinophils # 0.1 10^3/uL (0.0-0.8); Hematocrit 32.9 % (37.0-47.0); Hemoglobin 10.3 g/dL (11.5-15.3); Lymphocytes # 0.9 10^3/uL (0.8-4.8); Lymphocytes % 6.1 %; Mean Corpuscular HGB Conc 31.3 g/dL (30.0-36.0); Mean Corpuscular Hemoglobin 30.2 pg (28.0-34.0); Mean Corpuscular Volume 96.5 fl (81-99); Mean Platelet Volume 9.5 fL (7.4-10.4); Monocytes # 0.9 10^3/uL (0.2-0.9); Monocytes % 6.5 %; Neutrophils # 11.52 10^3/uL (1.8-7.7); Neutrophils % 82.3 %; Nucleated Red Blood Cells % 0 %; Platelet Count 490 10^3/cmm (130-400); Red Blood Count 3.41 10^6/uL (4.1-5.3)
[2022-06-28 04:35] LABS: Alanine Aminotransferase 25 U/L (0-33); Albumin Level 2.4 g/dL (3.5-5.2); Alkaline Phosphatase 187 U/L (35-105); Anion Gap 11.6 (5-19); Aspartate Amino Transferase 29 U/L (0-32); Blood Urea Nitrogen 9 mg/dL (8-23); Calcium 7.9 mg/dL (8.5-10.5); Carbon Dioxide 26 mmol/L (22-29); Chloride 104 mmol/L (98-107); Globulin 3.6 g/dL (1.3-4.6); Glucose 107 mg/dL (65-115); Osmolality Calculated 285 mOsm/kg (285-295); Potassium 3.6 mmol/L (3.5-5.1); Sodium 138 mmol/L (136-145); Total Bilirubin 0.7 mg/dL (0.15-1.2)
[2022-06-28] MEDS: meropenem 1,000 MG in sodium chloride 0.9% (plus) 50 ML 100 MG IV ×3 (05:09→21:33)
[2022-06-28] MEDS: pantoprazole 40 mg SDV IVP ×2 (10:20→20:09)
--- NOTE | 2022-06-28 11:24 | PC.SOCIAL ---
IMM update Imm updated with Granddaughter Magy. copy of page 2 explained. Magy verbalized understanding. Copy in chart initialed, dated and timed.
[2022-06-28] MEDS: D5-NS 0.45% + KCL 20 mEq 20 MEQ/1,000 ML BAG 75 MEQ IV (13:37)
[2022-06-28] MEDS: heparin 5,000 unit/mL INJ 1 mL 5000 UNIT SUBCUT ×2 (13:44→23:31)
[2022-06-28] MEDS: HYDROmorphone 1 mg/mL INJ 1 mL 0.2 MG IVP (13:58)
--- NOTE | 2022-06-28 14:29 | PC.RESP ---
Patient verbal with this respiratory therapist. Patient refusing treatment and vest therapy.
--- NOTE | 2022-06-28 15:51 | PM.PN ---
Subjective Subjective: No acute events overnight. Patient has remained hemodynamically stable and afebrile. Today morning again seen sitting up in chair. Continues to be weak and not interested in having oral meals. Working with physical and speech therapy on examination. Vitals/I&O/Wt Last Vital Signs Temp 98.2 F 06/28/22 12:00 Pulse 102 H 06/28/22 12:00 Resp 16 06/28/22 12:00 BP 153/91 06/28/22 12:00 Pulse Ox 96 06/28/22 12:00 O2 Del Method 06/28/22 08:00 O2 Flow Rate 2 06/25/22 15:04 FiO2 2 06/25/22 01:30 06/28/22 06/28/22 06/28/22 06:59 14:59 22:59 Intake Total 100 / 460 1000 / 1000 Output Total 1200 / 2600 Balance -1100 / -2140 1000 / 1000 Weight last 48 hrs Weight 51.392 kg Physical Exam Narrative: Family at bedside. Const: COMMON NORMALS: alert OTHER: She is awake, but answers some questions. HENMT: COMMON NORMALS: oropharynx normal Eye: COMMON NORMALS: Equal, round and reactive pupils present, EOMs intact bilaterally and conjunctivae normal CONJUNCTIVA: Yes conjunctivae normal PUPIL: Yes Equal, round and reactive pupils present OTHER: Nasal phill resolved. Neck/C-Spine: COMMON NORMALS: no JVD Resp: COMMON NORMALS: normal respiratory effort and clear to auscultation bilaterally AUSCULTATION: clear to auscultation bilaterally Cardio: COMMON NORMALS: no JVD, regular rhythm, S1 normal heart sound present, S2 normal heart sound present and No murmurs present (Cardio) RHYTHM: regular rhythm HEART SOUNDS: S1 normal heart sound present and S2 normal heart sound present GI: COMMON NORMALS: Normal to inspection, nondistended, normoactive bowel sounds present, Soft to palpation and non-tender PALPATION: Yes Soft to palpation Extremity: COMMON NORMALS: no joint enlargement and no pedal edema Neuro: COMMON NORMALS: moves all extremities SENSORIUM/ORIENTATION: Yes alert OTHER: Both lower extremities weak dropping to bed. Skin: COMMON NORMALS: no rashes or lesions noted GENERAL SKIN EXAM: no rashes or lesions noted OTHER: BL feet cool to touch. Left foot biphasic DP and PT. Right foot monophasic DP and PT pulses present. Right foot purplish discoloration patches. Medial inferior aspect. Urinary Catheter Management: [place]: Cath Placed During This Visit: yes Reason for Continuing Indwelling Catheter: Other Urinary Catheter Date of Insertion: 06/19/22 Urinary Catheter Time of Insertion: 12:50 Data 06/28/22 03:15 06/28/22 03:15 Micro: Microbiology 06/22/22 06:40 Blood Culture - Final Blood NO GROWTH AFTER 5 DAYS 06/22/22 06:39 Blood Culture - Final Blood NO GROWTH AFTER 5 DAYS A&P Assessment and plan (1) Sepsis: Sepsis without shock. Present on admission. Secondary to ESBL E. coli UTI along with necrotizing pneumonia most likely aspiration. Target organ dysfunction is acute encephalopathy and acute kidney injury. Blood cultures positive for Streptococcus pneumonia. Repeat blood cultures so far negative. Continue with meropenem which should cover both for E. coli and Streptococcus pneumonia. MRSA negative. Plan to continue meropenem for overall 7-day course after that switch to IV ceftriaxone for overall 4-week course given Streptococcus pneumonia bacteremia. Last day of IV meropenem is 06/29 midnight. Qualifiers: Acute renal failure type: unspecified Sepsis acute organ dysfunction status: with acute organ dysfunction Sepsis type: sepsis due to unspecified organism Severe sepsis acute organ dysfunction type: acute renal failure Severe sepsis shock status: without septic shock Qualified Code(s): A41.9 - Sepsis, unspecified organism; R65.20 - Severe sepsis without septic shock; N17.9 - Acute kidney failure, unspecified (2) Pneumonia: High concerns for aspiration pneumonia with right lower lobe lung abscess. Blood culture positive Streptococcus pneumonia. Antibiotic as above. Continue with DuoNebs every 6 hour. Oxygen supplementation keeping saturation over 92%. Appreciate pulmonary recommendations. Qualifiers: Pneumonia type: aspiration pneumonia Aspiration pneumonia type: due to vomit Laterality: right Lung location: lower lobe of lung Qualified Code(s): J69.0 - Pneumonitis due to inhalation of food and vomit (3) Abscess of lung: CT chest results appreciated. Consistent with few micro abscesses. (4) Acute hypernatremia: Resolved. Continue with the same IV fluids for now. Continue check BMP every 12 hours. Family is agreeable for short-term for fluid boluses without feeds. (5) Acute anemia: Post 3 unit blood transfusion overall with last transfusion on 06/25. Hemoglobin stable more than 10 today. Stool for occult blood negative. Most likely secondary to sepsis. Continue with IV iron supplementation. Protonix IV 40 twice daily. Can plan for a possibility of EGD/colonoscopy once patient becomes hemodynamically stable and less critical. CT abdomen pelvis ruled out retroperitoneal/psoas hematoma. Stool for occult blood negative. Nursing reporting patient having slow intermittent rectal versus vagina. Lower quadrant ultrasound negative for any vagina lower uterine masses. We will continue to monitor. (6) Aphasia: Appreciate speech evaluation. Patient fairly weak and does not show any interest in drinking. Seems to be improving Will frequent encouragement and trying one-to-one feeding. PT/OT. Out of bed to chair. Continue with Remeron 30 mg oral daily. Start on full liquid diet with protein shakes. (7) Acute kidney injury: Resolved. Present admission secondary sepsis and dehydration. Medical reconciliation done for nephrotoxic drugs. Monitor BMP every 12 hours. (8) Urinary tract infection: ESBL E. coli UTI. Treatment as above. Qualifiers: Hematuria presence: without hematuria Urinary tract infection type: site unspecified Qualified Code(s): N39.0 - Urinary tract infection, site not specified (9) Transaminitis: Secondary to severe sepsis. Acute hepatitis panel negative. (10) PAD (peripheral artery disease): Cool to touch bilateral feet, biphasic pulses PT and DP on the left. Right side monophasic PT and DP. Pulses present. Patches of discoloration of the foot. Start aspirin, statin. Will need additional outpatient evaluation. Granddaughter states she has had chronic issues with the right leg. (11) Goals of care, counseling/discussion: Discussed in detail with family at bedside including son and daughter. We discussed that patient is critically sick secondary to all the above mentioned illnesses. We discussed that if family is agreeable we will plan to change the treatment and monitor for clinical improvement within next 72 hours. If patient does not improve in the next 40 to 72 hours can plan to transition to hospice. Family is agreeable. Family is also agreeable for short-term NG tube placement for free water flushes if needed for hypernatremia. (12) Physical deconditioning: Patient is extremely physically deconditioned. Max assist on physical therapy. Not able to suck through a straw while trying to take liquid diet. Only going up to 3 50-500 on incentive spirometry. Continue with physical therapy and speech therapy. Patient does not want any kind of artificial feeds. Patient will need discharge to SNF for further rehabilitation and closer to discharge. Plan Hypertension: Goal blood pressure less than 140/90 mmHg. Patient having tachycardia most likely secondary severe physical deconditioning Started on metoprolol 25 mg twice daily. CODE STATUS: DNR/DNI. Protonix every 12 hourly for PUD prophylaxis SCDs for DVT prophylaxis. Pain management: IV Tylenol every 12 hourly, Dilaudid 0.2 mg every 4 hour as needed. Discharge planning: Discussed with patient's granddaughter and son in detail. Discussed that patient is fairly weak and will need extensive physical therapy going forward to get back to baseline. Also discussed that patient would do do better under monitoring. Family verbalized understanding and are agreeable to SNF placement. Case management alerted. Plan for the day: Leukocytosis continues to improve. Continue with physical therapy, speech therapy. Continue to encourage patient to increase oral intake. Continue with Remeron. Start patient on Ritalin 5 mg every morning and q. noon to stimulate appetite. If this does not improve appetite will need to discuss with family for possible PPN versus TPN. Monitor CMP daily for now. PICC line placement as blood cultures have remained negative for prolonged ceftriaxone therapy for overall 4 weeks on discharge. Care discussed in detail with family at bedside multiple times. All the questions were answered. Attestations Medical Necessity Statement*: Requires further hospitalization for management of streptococcal pneumonia bacteremia in setting of lung abscess, severe physical deconditioning while safe discharge planning is sought. Time Spent in Patient Care: Greater than 35 minutes Coding Level of Care Code Acute Machine Attendant for [facility] Fwd Diagnoses Sepsis A41.9; R65.20; N17.9 Acute renal failure type: unspecified Sepsis acute organ dysfunction status: with acute organ dysfunction Sepsis type: sepsis due to unspecified organism Severe sepsis acute organ dysfunction type: acute renal failure Severe sepsis shock status: without septic shock Pneumonia J69.0 Pneumonia type: aspiration pneumonia Aspiration pneumonia type: due to vomit Laterality: right Lung location: lower lobe of lung Abscess of lung J85.2 Acute hypernatremia E87.0 Acute anemia D64.9 Aphasia R47.01 Acute kidney injury N17.9 Urinary tract infection N39.0 Hematuria presence: without hematuria Urinary tract infection type: site unspecified Transaminitis R74.01 PAD (peripheral artery disease) I73.9 Goals of care, counseling/discussion Z71.89 Physical deconditioning R53.81
[2022-06-28] MEDS: docusate sodium 100 mg Capsule PO (17:38)
[2022-06-28] MEDS: mirtazapine 30 mg Tablet PO (20:09)
[2022-06-28] MEDS: metoprolol tartrate 25 mg Tablet PO (20:09)
[2022-06-29] VITALS (13 sets, daily range): BP systolic 103–164; BP diastolic 80–95; PULSE 65–100; RESP 14–24; TEMP 36.4–36.9; O2SAT 92–97
[2022-06-29] MEDS: D5-NS 0.45% + KCL 20 mEq 20 MEQ/1,000 ML BAG 75 MEQ IV ×2 (01:34→20:46)
[2022-06-29] MEDS: ipratropium-albuterol 3 mL Neb INHALATION ×3 (02:31→21:11)
[2022-06-29 04:49] LABS: Alanine Aminotransferase 24 U/L (0-33); Albumin Level 2.1 g/dL (3.5-5.2); Alkaline Phosphatase 180 U/L (35-105); Anion Gap 13.8 (5-19); Aspartate Amino Transferase 32 U/L (0-32); Blood Urea Nitrogen 9 mg/dL (8-23); Calcium 7.9 mg/dL (8.5-10.5); Carbon Dioxide 23 mmol/L (22-29); Chloride 104 mmol/L (98-107); Globulin 3.9 g/dL (1.3-4.6); Glucose 91 mg/dL (65-115); Osmolality Calculated 282 mOsm/kg (285-295); Potassium 3.8 mmol/L (3.5-5.1); Sodium 137 mmol/L (136-145); Total Bilirubin 0.7 mg/dL (0.15-1.2)
[2022-06-29] MEDS: methylphenidate 10 mg Tablet 5 MG PO ×2 (05:30→12:24)
[2022-06-29] MEDS: meropenem 1,000 MG in sodium chloride 0.9% (plus) 50 ML 100 MG IV ×3 (05:30→21:04)
[2022-06-29] MEDS: metoprolol tartrate 25 mg Tablet PO ×2 (10:04→20:45)
[2022-06-29] MEDS: heparin 5,000 unit/mL INJ 1 mL 5000 UNIT SUBCUT ×2 (12:24→23:26)
--- NOTE | 2022-06-29 16:56 | P.PN_ITS ---
Subjective Subjective: She had just been set up in chair. Not wanting to participate with therapy. Neither PT nor OT. Says that she is not hungry. States there is nothing that she wants. Does not have any questions. Vitals/I&O/Wt Last Vital Signs Temp 97.5 F L 06/29/22 14:41 Pulse 65 06/29/22 14:42 Resp 22 H 06/29/22 14:42 BP 126/80 06/29/22 14:41 Pulse Ox 93 06/29/22 14:42 O2 Del Method 06/29/22 15:17 O2 Flow Rate 2 06/25/22 15:04 FiO2 2 06/25/22 01:30 06/29/22 06/29/22 06/29/22 06:59 14:59 22:59 Intake Total 946.25 / 2166.25 1050 / 1050 Output Total 1250 / 2550 Balance -303.75 / -383.75 1050 / 1050 Weight last 48 hrs Weight 48.262 kg Weight 51.392 kg Physical Exam Const: ORIENTATION/CONSCIOUSNESS: Yes awake HENMT: COMMON NORMALS: oropharynx normal Neck/C-Spine: COMMON NORMALS: no JVD Resp: COMMON NORMALS: normal respiratory effort and clear to auscultation bi laterally AUSCULTATION: clear to auscultation bilaterally Cardio: COMMON NORMALS: no JVD, regular rhythm, S1 normal heart sound present, S2 normal heart sound present and No murmurs present (Cardio) RHYTHM: regular rhythm HEART SOUNDS: S1 normal heart sound present and S2 normal heart sound present GI: COMMON NORMALS: Normal to inspection, nondistended, normoactive bowel sounds present, Soft to palpation and non-tender PALPATION: Yes Soft to palpation Extremity: COMMON NORMALS: no joint enlargement and no pedal edema Neuro: COMMON NORMALS: moves all extremities Urinary Catheter Management: [place]: Cath Placed During This Visit: yes Reason for Continuing Indwelling Catheter: Other Urinary Catheter Date of Insertion: 06/19/22 Urinary Catheter Time of Insertion: 12:50 Data 06/28/22 03:15 06/29/22 03:53 A&P Assessment and plan (1) Sepsis: So far over 24 hours without fever. Leukocytosis has been decreasing. Sepsis resolving. Still without improvement in cognitive function, participation with therapy, with significant functional decline, and no appetite. Continue IV antibiotics currently. Discussed further with her granddaughter will further discuss with family regarding consideration of further goals of care. Given she has not shown significant clinical improvement and has not been willing to participate with therapy, her overall prognosis is poor for recovery. In case further time is desired to allow for recovery additionally would need to consider parenteral nutrition given persistent lack of oral intake and prior wishes of not wanting a feeding tube. Remains at elevated risk of aspiration. The alternative would be to transition to comfort measures. Family will further let us know. Continue meropenem through today. Switch to IV ceftriaxone tomorrow. Plan for 4-week course of ceftriaxone. Sepsis without shock. Present on admission. Secondary to ESBL E. coli UTI along with necrotizing pneumonia most likely aspiration. Target organ dysfunction is acute encephalopathy and acute kidney injury. Blood cultures positive for Streptococcus pneumonia. Repeat blood cultures so far negative. Continue with meropenem which should cover both for E. coli and Streptococcus pneumonia. MRSA negative. Qualifiers: Acute renal failure type: unspecified Sepsis acute organ dysfunction status: with acute organ dysfunction Sepsis type: sepsis due to unspecified organism Severe sepsis acute organ dysfunction type: acute renal failure Severe sepsis shock status: without septic shock Qualified Code(s): A41.9 - Sepsis, unspecified organism; R65.20 - Severe sepsis without septic shock; N17.9 - Acute kidney failure, unspecified (2) Pneumonia: As above. High concerns for aspiration pneumonia with right lower lobe lung abscess. Blood culture positive Streptococcus pneumonia. Antibiotic as above. Continue with DuoNebs every 6 hour. Oxygen supplementation keeping saturation over 92%. Appreciate pulmonary recommendations. Qualifiers: Aspiration pneumonia type: due to vomit Laterality: right Lung location: lower lobe of lung Pneumonia type: aspiration pneumonia Qualified Code(s): J69.0 - Pneumonitis due to inhalation of food and vomit (3) Abscess of lung: CT chest results appreciated. Consistent with few micro abscesses. (4) Acute hypernatremia: Resolved. Continue with the same IV fluids for now. Continue check BMP every 12 hours. Family is agreeable for short-term for fluid boluses without feeds. (5) Acute anemia: Post 3 unit blood transfusion overall with last transfusion on 06/25. Follow-up blood count. Stool for occult blood negative. Most likely secondary to sepsis. Continue with IV iron supplementation. Protonix IV 40 twice daily. Can plan for a possibility of EGD/colonoscopy once patient becomes hemodynamically stable and less critical. CT abdomen pelvis ruled out retroperitoneal/psoas hematoma. Stool for occult blood negative. Nursing reporting patient having slow intermittent rectal versus vagina. Lower quadrant ultrasound negative for any vagina lower uterine masses. We will continue to monitor. (6) Aphasia: Appreciate speech evaluation. PT/OT. Out of bed to chair. Continue with Remeron 30 mg oral daily. Start on full liquid diet with protein shakes. (7) Acute kidney injury: Resolved. Present admission secondary sepsis and dehydration. Medical reconciliation done for nephrotoxic drugs. (8) Urinary tract infection: ESBL E. coli UTI. Treatment as above. Qualifiers: Hematuria presence: without hematuria Urinary tract infection type: site unspecified Qualified Code(s): N39.0 - Urinary tract infection, site not specified (9) Transaminitis: Secondary to severe sepsis. Acute hepatitis panel negative. (10) PAD (peripheral artery disease): Cool to touch bilateral feet, biphasic pulses PT and DP on the left. Right side monophasic PT and DP. Pulses present. Patches of discoloration of the foot. Start aspirin, statin. Will need additional outpatient evaluation. Granddaughter states she has had chronic issues with the right leg. (11) Goals of care, counseling/discussion: As above. (12) Physical deconditioning: Patient is extremely physically deconditioned. Max assist on physical therapy. Not able to suck through a straw while trying to take liquid diet. She has so far not been participating with therapy. Plan Hypertension: Goal blood pressure less than 140/90 mmHg. Patient having tachycardia most likely secondary severe physical deconditioning Started on metoprolol 25 mg twice daily. CODE STATUS: DNR/DNI. Protonix every 12 hourly for PUD prophylaxis SCDs for DVT prophylaxis. Attestations Medical Necessity Statement*: Continue admission for assessment of management of resolving sepsis, complicated pneumonia with bacteremia, continued IV antibiotics, further assessment and determination of goals of care. Coding Level of Care Code Acute International Guest Coordinator for [facility] Fwd Exam Comprehensive Diagnoses Sepsis A41.9; R65.20; N17.9 Acute renal failure type: unspecified Sepsis acute organ dysfunction status: with acute organ dysfunction Sepsis type: sepsis due to unspecified organism Severe sepsis acute organ dysfunction type: acute renal failure Severe sepsis shock status: without septic shock Pneumonia J69.0 Aspiration pneumonia type: due to vomit Laterality: right Lung location: lower lobe of lung Pneumonia type: aspiration pneumonia Abscess of lung J85.2 Acute hypernatremia E87.0 Acute anemia D64.9 Aphasia R47.01 Acute kidney injury N17.9 Urinary tract infection N39.0 Hematuria presence: without hematuria Urinary tract infection type: site unspecified Transaminitis R74.01 PAD (peripheral artery disease) I73.9 Goals of care, counseling/discussion Z71.89 Physical deconditioning R53.81
[2022-06-29] MEDS: mirtazapine 30 mg Tablet PO (20:45)
[2022-06-29] MEDS: pantoprazole 40 mg SDV IVP (20:46)
[2022-06-30] VITALS (13 sets, daily range): BP systolic 119–139; BP diastolic 68–82; PULSE 64–107; RESP 14–20; TEMP 36.5–37.5; O2SAT 94–98
[2022-06-30] MEDS: ipratropium-albuterol 3 mL Neb INHALATION ×4 (02:50→22:03)
[2022-06-30 03:37] LABS: Basophils # 0.1 10^3/uL (0.0-0.1); Basophils % 0.5 %; Eosinophils # 0.1 10^3/uL (0.0-0.8); Eosinophils % 0.7 %; Hematocrit 34.3 % (37.0-47.0); Hemoglobin 10.8 g/dL (11.5-15.3); Lymphocytes # 0.9 10^3/uL (0.8-4.8); Lymphocytes % 6.6 %; Mean Corpuscular HGB Conc 31.5 g/dL (30.0-36.0); Mean Corpuscular Hemoglobin 30.4 pg (28.0-34.0); Mean Corpuscular Volume 96.6 fl (81-99); Mean Platelet Volume 9.4 fL (7.4-10.4); Monocytes % 7.8 %; Neutrophils # 10.86 10^3/uL (1.8-7.7); Neutrophils % 82.1 %; Nucleated Red Blood Cells % 0 %; Platelet Count 460 10^3/cmm (130-400); Red Blood Count 3.55 10^6/uL (4.1-5.3); Red Cell Distribution Width 17.8 % (12.1-15.1); White Blood Count 13.3 10^3/uL (4.0-10.0)
[2022-06-30 04:00] LABS: Alanine Aminotransferase 26 U/L (0-33); Albumin Level 2.5 g/dL (3.5-5.2); Alkaline Phosphatase 197 U/L (35-105); Anion Gap 12.4 (5-19); Aspartate Amino Transferase 39 U/L (0-32); Blood Urea Nitrogen 10 mg/dL (8-23); Calcium 8.2 mg/dL (8.5-10.5); Carbon Dioxide 25 mmol/L (22-29); Chloride 105 mmol/L (98-107); Globulin 3.8 g/dL (1.3-4.6); Glucose 109 mg/dL (65-115); Osmolality Calculated 286 mOsm/kg (285-295); Potassium 4.4 mmol/L (3.5-5.1); Sodium 138 mmol/L (136-145); Total Bilirubin 0.8 mg/dL (0.15-1.2); Total Protein 6.3 g/dL (6.6-8.7)
[2022-06-30] MEDS: docusate sodium 100 mg Capsule PO ×2 (08:36→17:31)
[2022-06-30] MEDS: metoprolol tartrate 25 mg Tablet PO ×2 (08:36→21:04)
--- NOTE | 2022-06-30 12:44 | PC.SOCIAL ---
IMM Updated Updated pt on IMM. No questions voiced. Provided pt a copy. Initialed, dated, & timed copy in chart.
--- NOTE | 2022-06-30 15:02 | P.PN_ITS ---
Subjective Subjective: She is awake, responding to some questions with brief answers. Denies pain. Denies being short of breath. Not oriented to place or time. Denies any needs or questions. Vitals/I&O/Wt Last Vital Signs Temp 99.2 F 06/30/22 11:52 Pulse 64 06/30/22 13:57 Resp 18 06/30/22 11:52 BP 128/70 06/30/22 11:52 Pulse Ox 96 06/30/22 11:52 O2 Del Method 06/30/22 13:57 O2 Flow Rate 2 06/25/22 15:04 FiO2 21 06/30/22 13:57 06/30/22 06/30/22 06/30/22 06:59 14:59 22:59 Intake Total 1300 / 1300 Output Total 150 / 2850 Balance -150 / -1750 1300 / 1300 Weight last 48 hrs Weight 48.58 kg Weight 48.262 kg Physical Exam Const: ORIENTATION/CONSCIOUSNESS: Yes awake OTHER: Sitting up in bed. HENMT: COMMON NORMALS: oropharynx normal Neck/C-Spine: COMMON NORMALS: no JVD Resp: COMMON NORMALS: normal respiratory effort and clear to auscultation bilaterally AUSCULTATION: clear to auscultation bilaterally Cardio: COMMON NORMALS: no JVD, regular rhythm, S1 normal heart sound present, S2 normal heart sound present and No murmurs present (Cardio) RHYTHM: regular rhythm HEART SOUNDS: S1 normal heart sound present and S2 normal heart sound present GI: COMMON NORMALS: Normal to inspection, nondistended, normoactive bowel sounds present, Soft to palpation and non-tender PALPATION: Yes Soft to palpation Extremity: COMMON NORMALS: no joint enlargement and no pedal edema Neuro: COMMON NORMALS: moves all extremities Urinary Catheter Management: [place]: Cath Placed During This Visit: yes Reason for Continuing Indwelling Catheter: Accurate Measurement of Urinary Output in Critically Ill Patients Urinary Catheter Date of Insertion: 06/19/22 Urinary Catheter Time of Insertion: 12:50 Data 06/30/22 03:20 06/30/22 03:20 A&P Assessment and plan (1) Acute cognitive decline: So far with significant functional decline, cognitive decline, although she is awake, cooperative, answers all questions, remains not oriented. Without any participation with therapy. No appetite. Without improvement despite resolving sepsis, adequate treatment for underlying infections, reorientation, attempted mobilization. Suspicion also for possible underlying CVA, although could not be visualized with poor quality imaging study. No success with attempts of resumption of oral intake. Further discussion took place with family and among family. Given lack of improvement and lack of participation overall with poor prognosis for recovery. Family decision to transition to comfort measures, foregoing further aggressive interventions, with further consideration with regards to return home versus needing residential facility. Discontinue IV antibiotic for now switch to oral antibiotic. Discontinue blood draws, vitals de-escalate to daily. Stop PT and OT. (2) Sepsis: Resolved sepsis. Remains afebrile. Leukocytosis continues to downtrend. No tachycardia. So far over 24 hours without fever. Leukocytosis has been decreasing. Sepsis resolving. Still without improvement in cognitive function, participation with therapy, with significant functional decline, and no appetite. Continue IV antibiotics currently. Discussed further with her granddaughter will further discuss with family regarding consideration of further goals of care. Given she has not shown significant clinical improvement and has not been willing to participate with therapy, her overall prognosis is poor for recovery. In case further time is desired to allow for recovery additionally would need to consider parenteral nutrition given persistent lack of oral intake and prior wishes of not wanting a feeding tube. Remains at elevated risk of aspiration. The alternative would be to transition to comfort measures. Family will further let us know. Continue meropenem through today. Switch to IV ceftriaxone tomorrow. Plan for 4-week course of ceftriaxone. Sepsis without shock. Present on admission. Secondary to ESBL E. coli UTI along with necrotizing pneumonia most likely aspiration. Target organ dysfunction is acute encephalopathy and acute kidney injury. Blood cultures positive for Streptococcus pneumonia. Repeat blood cultures so far negative. Continue with meropenem which should cover both for E. coli and Streptococcus pneumonia. MRSA negative. Qualifiers: Acute renal failure type: unspecified Sepsis acute organ dysfunction status: with acute organ dysfunction Sepsis type: sepsis due to unspecified organism Severe sepsis acute organ dysfunction type: acute renal failure Severe sepsis shock status: without septic shock Qualified Code(s): A41.9 - Sepsis, unspecified organism; R65.20 - Severe sepsis without septic shock; N17.9 - Acute kidney failure, unspecified (3) Pneumonia: As above. High concerns for aspiration pneumonia with right lower lobe lung abscess. Blood culture positive Streptococcus pneumonia. Antibiotic as above. Continue with DuoNebs every 6 hour. Oxygen supplementation keeping saturation over 92%. Appreciate pulmonary recommendations. Qualifiers: Pneumonia type: aspiration pneumonia Aspiration pneumonia type: due to vomit Laterality: right Lung location: lower lobe of lung Qualified Code(s): J69.0 - Pneumonitis due to inhalation of food and vomit (4) Abscess of lung: CT chest results appreciated. Consistent with few micro abscesses. (5) Acute hypernatremia: Resolved. Continue with the same IV fluids for now. Continue check BMP every 12 hours. Family is agreeable for short-term for fluid boluses without feeds. (6) Acute anemia: Post 3 unit blood transfusion overall with last transfusion on 06/25. Follow-up blood count. Stool for occult blood negative. Most likely secondary to sepsis. Continue with IV iron supplementation. Protonix IV 40 twice daily. Can plan for a possibility of EGD/colonoscopy once patient becomes hemodynamically stable and less critical. CT abdomen pelvis ruled out retroperitoneal/psoas hematoma. Stool for occult blood negative. Nursing reporting patient having slow intermittent rectal versus vagina. Lower quadrant ultrasound negative for any vagina lower uterine masses. We will continue to monitor. (7) Aphasia: Appreciate speech evaluation. PT/OT. Out of bed to chair. Continue with Remeron 30 mg oral daily. Start on full liquid diet with protein shakes. (8) Acute kidney injury: Resolved. Present admission secondary sepsis and dehydration. Medical reconciliation done for nephrotoxic drugs. (9) Urinary tract infection: ESBL E. coli UTI. Treatment as above. Qualifiers: Hematuria presence: without hematuria Urinary tract infection type: site unspecified Qualified Code(s): N39.0 - Urinary tract infection, site not specified (10) Transaminitis: Secondary to severe sepsis. Acute hepatitis panel negative. (11) PAD (peripheral artery disease): Cool to touch bilateral feet, biphasic pulses PT and DP on the left. Right side monophasic PT and DP. Pulses present. Patches of discoloration of the foot. Start aspirin, statin. Will need additional outpatient evaluation. Granddaughter states she has had chronic issues with the right leg. (12) Goals of care, counseling/discussion: As above. (13) Physical deconditioning: Patient is extremely physically deconditioned. Max assist on physical therapy. Not able to suck through a straw while trying to take liquid diet. She has so far not been participating with therapy. Plan Hypertension: Goal blood pressure less than 140/90 mmHg. Patient having tachycardia most likely secondary severe physical deconditioning Started on metoprolol 25 mg twice daily. CODE STATUS: DNR/DNI. Protonix every 12 hourly for PUD prophylaxis SCDs for DVT prophylaxis. Attestations Medical Necessity Statement*: Continue discussion of goals of care, transition to comfort measures, post discharge planning and arrangements. Coding Level of Care Code Acute [place] Blind Washer for [facility] Fwd Diagnoses Acute cognitive decline R41.89 Sepsis A41.9; R65.20; N17.9 Acute renal failure type: unspecified Sepsis acute organ dysfunction status: with acute organ dysfunction Sepsis type: sepsis due to unspecified organism Severe sepsis acute organ dysfunction type: acute renal failure Severe sepsis shock status: without septic shock Pneumonia J69.0 Pneumonia type: aspiration pneumonia Aspiration pneumonia type: due to vomit Laterality: right Lung location: lower lobe of lung Abscess of lung J85.2 Acute hypernatremia E87.0 Acute anemia D64.9 Aphasia R47.01 Acute kidney injury N17.9 Urinary tract infection N39.0 Hematuria presence: without hematuria Urinary tract infection type: site unspecified Transaminitis R74.01 PAD (peripheral artery disease) I73.9 Goals of care, counseling/discussion Z71.89 Physical deconditioning R53.81
[2022-06-30] MEDS: acetaminophen 325 mg Tablet 650 MG PO (17:31)
[2022-06-30] MEDS: mirtazapine 30 mg Tablet PO (21:04)
[2022-07-01] VITALS (8 sets, daily range): BP systolic 122–149; BP diastolic 77–87; PULSE 70–99; RESP 16–20; TEMP 36.4–36.9; O2SAT 93–97
[2022-07-01] MEDS: ipratropium-albuterol 3 mL Neb INHALATION ×2 (02:43→08:04)
[2022-07-01] MEDS: levoFLOXacin 750 mg Tablet PO (06:14)
[2022-07-01] MEDS: acetaminophen 325 mg Tablet 650 MG PO (08:10)
[2022-07-01] MEDS: docusate sodium 100 mg Capsule PO ×2 (08:11→17:42)
[2022-07-01] MEDS: metoprolol tartrate 25 mg Tablet PO ×2 (08:13→22:19)
--- NOTE | 2022-07-01 12:56 | PC.CHAP ---
Pastoral Care Encounter/Spiritual Assessment Type of Contact [] Declined cloth shearing supervisor visit [] Patient/Family/Request visit [] Outpatient visit [] Follow-up visit [] Physician referral [] Code/Alert [x] Routine visit [] Staff referral [] Actively dying [] Patient sleeping [] Family support [] [] Out of room [] Palliative care [] [] Receiving care in room [] Pre-surgical visit [] Trauma [] Long length of stay [] ICU visit [] Other: Relational/Emotional Strength [x] Patient feels connected with others/family/visitors/staff [] Distress [] Loneliness/isolation [] Abandonment Spirituality of Patient [x Person of Chen [] Attends Bahai of their Chen [x] Believes in Prayer [] Reads Bible or Druze materials [] There are Spiritual issues to be addressed [employer] Tender Interventions [x] Prayer [] Active listening [] Non-anxious presence [] Spiritual/emotional support [] Crisis/trauma care [] Spiritual counseling [] Bereavement support [] Provided bereavement packet [] Provided Bible/devotional materials [] Provided toy/stuffed animal, coloring book to patient or family member [] Provided Communion [] Anointing/[place] [] Salvation [x] Completed spiritual assessment [] Other: Impact on Illness or Injury [] Angry [] Fearful [] Anxious [] Often cries [] Exhaustion [] Unable to work [] Unable to attend adventism [] Unable to walk/stand [] Unable to read [] Unable to drive [] Unable to eat/drink [] Unable to sleep [] Unable to be with family [] Patient intubated [] Other: Summary Time spent with patient 10 min
[2022-07-01] MEDS: pantoprazole DR 40 mg Tablet PO (17:42)
--- NOTE | 2022-07-01 18:16 | PM.PN ---
Subjective Subjective: Denies pain. States he is bothered by the monitor, requested for to be removed. States she was in the hospital, is not sure where she is now. States she is not hungry, but try to have some of that , referring likely to Ensure. Vitals/I&O/Wt Last Vital Signs Temp 98.0 F 07/01/22 07:31 Pulse 87 07/01/22 08:00 Resp 18 07/01/22 08:00 BP 130/77 07/01/22 07:31 Pulse Ox 97 07/01/22 08:00 O2 Del Method 07/01/22 08:00 O2 Flow Rate 2 07/01/22 08:00 FiO2 21 06/30/22 13:57 07/01/22 07/01/22 07/01/22 06:59 14:59 22:59 Intake Total 0 / 1360 60 / 60 Output Total 650 / 2000 475 / 475 Balance -650 / -640 60 / 60 -475 / -415 Weight last 48 hrs Weight 48.58 kg Physical Exam Const: COMMON NORMALS: alert ORIENTATION/CONSCIOUSNESS: Yes awake HENMT: COMMON NORMALS: oropharynx normal Neck/C-Spine: COMMON NORMALS: no JVD Resp: COMMON NORMALS: normal respiratory effort and clear to auscultation bilaterally AUSCULTATION: clear to auscultation bilaterally Cardio: COMMON NORMALS: no JVD, regular rhythm, S1 normal heart sound present, S2 normal heart sound present and No murmurs present (Cardio) RHYTHM: regular rhythm HEART SOUNDS: S1 normal heart sound present and S2 normal heart sound present GI: COMMON NORMALS: Normal to inspection, nondistended, normoactive bowel sounds present, Soft to palpation and non-tender PALPATION: Yes Soft to palpation Extremity: COMMON NORMALS: no joint enlargement and no pedal edema Neuro: COMMON NORMALS: moves all extremities SENSORIUM/ORIENTATION: Yes alert Skin: COMMON NORMALS: no rashes or lesions noted GENERAL SKIN EXAM: no rashes or lesions noted Urinary Catheter Management: [place]: Cath Placed During This Visit: yes Reason for Continuing Indwelling Catheter: Acute Urinary Retention or Obstruction Urinary Catheter Date of Insertion: 06/19/22 Urinary Catheter Time of Insertion: 12:50 Data 06/30/22 03:20 06/30/22 03:20 A&P Assessment and plan (1) Acute cognitive decline: Continue comfort measures. Reporting pain, will add oral liquid morphine as needed 5 mg every 2 hours. Continue planning arrangements with regards to continued posthospitalization care. (2) Sepsis: Resolved sepsis. Remains afebrile. Leukocytosis continues to downtrend. No tachycardia. Continue oral Levaquin. So far over 24 hours without fever. Leukocytosis has been decreasing. Sepsis resolving. Still without improvement in cognitive function, participation with therapy, with significant functional decline, and no appetite. Continue IV antibiotics currently. Discussed further with her granddaughter will further discuss with family regarding consideration of further goals of care. Given she has not shown significant clinical improvement and has not been willing to participate with therapy, her overall prognosis is poor for recovery. In case further time is desired to allow for recovery additionally would need to consider parenteral nutrition given persistent lack of oral intake and prior wishes of not wanting a feeding tube. Remains at elevated risk of aspiration. The alternative would be to transition to comfort measures. Family will further let us know. Continue meropenem through today. Switch to IV ceftriaxone tomorrow. Plan for 4-week course of ceftriaxone. Sepsis without shock. Present on admission. Secondary to ESBL E. coli UTI along with necrotizing pneumonia most likely aspiration. Target organ dysfunction is acute encephalopathy and acute kidney injury. Blood cultures positive for Streptococcus pneumonia. Repeat blood cultures so far negative. Continue with meropenem which should cover both for E. coli and Streptococcus pneumonia. MRSA negative. Qualifiers: Acute renal failure type: unspecified Sepsis acute organ dysfunction status: with acute organ dysfunction Sepsis type: sepsis due to unspecified organism Severe sepsis acute organ dysfunction type: acute renal failure Severe sepsis shock status: without septic shock Qualified Code(s): A41.9 - Sepsis, unspecified organism; R65.20 - Severe sepsis without septic shock; N17.9 - Acute kidney failure, unspecified (3) Pneumonia: As above. High concerns for aspiration pneumonia with right lower lobe lung abscess. Blood culture positive Streptococcus pneumonia. Antibiotic as above. Continue with DuoNebs every 6 hour. Oxygen supplementation keeping saturation over 92%. Appreciate pulmonary recommendations. Qualifiers: Pneumonia type: aspiration pneumonia Aspiration pneumonia type: due to vomit Laterality: right Lung location: lower lobe of lung Qualified Code(s): J69.0 - Pneumonitis due to inhalation of food and vomit (4) Abscess of lung: CT chest results appreciated. Consistent with few micro abscesses. (5) Acute hypernatremia: Resolved. Continue with the same IV fluids for now. Continue check BMP every 12 hours. Family is agreeable for short-term for fluid boluses without feeds. (6) Acute anemia: Post 3 unit blood transfusion overall with last transfusion on 06/25. Follow-up blood count. Stool for occult blood negative. Most likely secondary to sepsis. Continue with IV iron supplementation. Protonix IV 40 twice daily. Can plan for a possibility of EGD/colonoscopy once patient becomes hemodynamically stable and less critical. CT abdomen pelvis ruled out retroperitoneal/psoas hematoma. Stool for occult blood negative. Nursing reporting patient having slow intermittent rectal versus vagina. Lower quadrant ultrasound negative for any vagina lower uterine masses. We will continue to monitor. (7) Aphasia: Appreciate speech evaluation. PT/OT. Out of bed to chair. Continue with Remeron 30 mg oral daily. Start on full liquid diet with protein shakes. (8) Acute kidney injury: Resolved. Present admission secondary sepsis and dehydration. Medical reconciliation done for nephrotoxic drugs. (9) Urinary tract infection: ESBL E. coli UTI. Treatment as above. Qualifiers: Hematuria presence: without hematuria Urinary tract infection type: site unspecified Qualified Code(s): N39.0 - Urinary tract infection, site not specified (10) Transaminitis: Secondary to severe sepsis. Acute hepatitis panel negative. (11) PAD (peripheral artery disease): Cool to touch bilateral feet, biphasic pulses PT and DP on the left. Right side monophasic PT and DP. Pulses present. Patches of discoloration of the foot. Start aspirin, statin. Will need additional outpatient evaluation. Granddaughter states she has had chronic issues with the right leg. (12) Goals of care, counseling/discussion: As above. (13) Physical deconditioning: Patient is extremely physically deconditioned. Max assist on physical therapy. Not able to suck through a straw while trying to take liquid diet. She has so far not been participating with therapy. Plan Hypertension: Goal blood pressure less than 140/90 mmHg. Patient having tachycardia most likely secondary severe physical deconditioning Started on metoprolol 25 mg twice daily. CODE STATUS: DNR/DNI. Protonix every 12 hourly for PUD prophylaxis SCDs for DVT prophylaxis. Attestations Medical Necessity Statement*: Continue admission for assessment of management of complicated pneumonia, ESBL UTI, with significant functional decline, comfort measures, posthospitalization care planning and arrangement. 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 Fwd Diagnoses Acute cognitive decline R41.89 Sepsis A41.9; R65.20; N17.9 Acute renal failure type: unspecified Sepsis acute organ dysfunction status: with acute organ dysfunction Sepsis type: sepsis due to unspecified organism Severe sepsis acute organ dysfunction type: acute renal failure Severe sepsis shock status: without septic shock Pneumonia J69.0 Pneumonia type: aspiration pneumonia Aspiration pneumonia type: due to vomit Laterality: right Lung location: lower lobe of lung Abscess of lung J85.2 Acute hypernatremia E87.0 Acute anemia D64.9 Aphasia R47.01 Acute kidney injury N17.9 Urinary tract infection N39.0 Hematuria presence: without hematuria Urinary tract infection type: site unspecified Transaminitis R74.01 PAD (peripheral artery disease) I73.9 Goals of care, counseling/discussion Z71.89 Physical deconditioning R53.81
[2022-07-01] MEDS: morphine 10 mg/0.5 mL oral liq UD 5 MG PO (18:33)
[2022-07-01] MEDS: mirtazapine 30 mg Tablet PO (22:20)
[2022-07-02 01:09] VITALS: BP 154/76; PULSE 100; RESP 19; TEMP 36.5; O2SAT 94
[2022-07-02 03:50] VITALS: BP 126/73; PULSE 93; RESP 14; TEMP 36.8; O2SAT 94
[2022-07-02] MEDS: levoFLOXacin 750 mg Tablet PO (05:14)
[2022-07-02 07:40] VITALS: PULSE 90; RESP 18; O2SAT 95
[2022-07-02 07:46] VITALS: BP 104/65; PULSE 89; RESP 15; TEMP 36.4; O2SAT 95
[2022-07-02] MEDS: metoprolol tartrate 25 mg Tablet PO ×2 (08:09→22:21)
[2022-07-02] MEDS: docusate sodium 100 mg Capsule PO (08:09)
[2022-07-02] MEDS: pantoprazole DR 40 mg Tablet PO ×2 (08:10→18:12)
--- NOTE | 2022-07-02 10:59 | PC.SOCIAL ---
IMM Updated Updated pt on IMM. No questions voiced. Provided pt a copy. Initialed, dated, & timed copy in chart.
[2022-07-02 11:50] VITALS: BP 90/58; PULSE 74; RESP 15; TEMP 36.4; O2SAT 96
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
[2022-07-02 20:00] VITALS: BP 141/82; PULSE 93; RESP 16; TEMP 36.8; O2SAT 96
[2022-07-02] MEDS: mirtazapine 30 mg Tablet PO (22:21)
[2022-07-03 04:00] VITALS: BP 137/77; PULSE 84; RESP 15; TEMP 36.8; O2SAT 97
[2022-07-03] MEDS: levoFLOXacin 750 mg Tablet PO (05:10)
[2022-07-03 07:57] VITALS: BP 152/91; PULSE 76; RESP 15; TEMP 36.4; O2SAT 97
[2022-07-03 08:40] VITALS: PULSE 94; RESP 18
[2022-07-03] MEDS: metoprolol tartrate 25 mg Tablet PO (11:05)
[2022-07-03] MEDS: pantoprazole DR 40 mg Tablet PO (11:06)
[2022-07-03] MEDS: docusate sodium 100 mg Capsule PO (11:06)
[2022-07-03 15:15] VITALS: BP 152/91; PULSE 94; RESP 18; TEMP 36.4; O2SAT 97
--- NOTE | 2022-07-03 15:30 | PM.DCS ---
Discharge Providers Date of Admission: 06/19/22 15:52 Date of Discharge: July 03, 2022 Attending Provider at Admission: Aylin Thomas Attending Provider at Discharge: Aylin Thomas Primary Care Provider: Rashawn Reed MD Diagnoses at Discharge Discharge Diagnosis (1) Acute cognitive decline: Status: Acute (2) Sepsis: Status: Acute Qualifiers: Acute renal failure type: unspecified Sepsis acute organ dysfunction status: with acute organ dysfunction Sepsis type: sepsis due to unspecified organism Severe sepsis acute organ dysfunction type: acute renal failure Severe sepsis shock status: without septic shock Qualified Code(s): A41.9 - Sepsis, unspecified organism; R65.20 - Severe sepsis without septic shock; N17.9 - Acute kidney failure, unspecified (3) Pneumonia: Status: Acute Qualifiers: Pneumonia type: aspiration pneumonia Aspiration pneumonia type: due to vomit Laterality: right Lung location: lower lobe of lung Qualified Code(s): J69.0 - Pneumonitis due to inhalation of food and vomit (4) Abscess of lung: Status: Acute (5) Acute hypernatremia: Status: Acute (6) Acute anemia: Status: Acute (7) Aphasia: Status: Acute (8) Acute kidney injury: Status: Acute (9) Urinary tract infection: Status: Acute Qualifiers: Hematuria presence: without hematuria Urinary tract infection type: site unspecified Qualified Code(s): N39.0 - Urinary tract infection, site not specified (10) Transaminitis: Status: Acute (11) PAD (peripheral artery disease): Status: Acute (12) Goals of care, counseling/discussion: Status: Acute (13) Physical deconditioning: Status: Acute Reason for Visit Reason for Visit: Fall Hospital Course Hospital Course 81-year-old lady with history of hypertension was admitted after progressively worsening cough, shortness of breath, lethargy, generalized weakness, loss of oral intake, eventually becoming unresponsive, with a viral illness the week preceding hospitalization. On admission also with anisocoria. Possible aphasia. Possible CVA not excluded, outside the window for intervention. CT head with moderate cerebral atrophy. Requiring 3 L nasal cannula oxygen. With tachypnea. Sepsis on presentation. Negative influenza and COVID antibodies. Right lower lobe pneumonia based on symptoms and imaging. Was treated with cefepime and vancomycin. Additionally with finding of ESBL E. coli UTI growing on culture. Additionally pneumonia complicated by strep pneumonia bacteremia from admission cultures. Cultures repeated remain negative. Antibiotics were adjusted to meropenem. CT chest was obtained with finding of dense consolidation in the right lower lobe. Additionally consolidated right lower lobe with rounded foci of air suspicious for pulmonary abscesses. She was additionally assessed by pulmonology with recommendation for continued antibiotic therapy. Sepsis gradually resolved. Downtrending cytosis, fevers resolved. She completed course of meropenem, was transitioned over to Levaquin. However, despite improving sepsis, resolution of KATHRYN, transaminitis, improving oxygenation, weaning down to room air, despite all that remains in functional decline, at risk of aspiration, but also unwilling to mobilize, work with therapy, not maintaining any adequate oral intake without significant cognitive improvement. Was also assessed by MRI for post ablation possible CVA, however, study to motion limited to interpret fine detail. As she continued to decline to work with therapy, oral intake not improving, persistent risk for aspiration and without cognitive recovery, with poor prognosis overall, goals of care were reassessed on multiple occasions with family with updates through the hospitalization. CODE STATUS was changed to AND. She would not have wanted feeding tube or artificial life support. Eventually without significant recovery decision was made to go ahead with comfort measures with hospice care. She otherwise is doing well on room air. She is slightly more interactive, but with apathy toward activity, oral intake, limited orientation or insight into her condition. She will be returning home for continued care with hospice with her family. On presentation additionally suspected peripheral arterial disease in the right leg, with cool to touch, purplish discoloration, but with dopplerable pulses in the right foot. Depending on future recovery and goals of care consideration was given for further assessment. Arterial Dopplers. Additionally anemia noted in the hospital, negative Hemoccult, received iron supplementation, PPI, endoscopy was considered prior to goals of care changes. Depending on recovery and goals of care may be considered in the future. Physical Exam Const: COMMON NORMALS: patient oriented x3 and alert GENERAL APPEARANCE: cooperative ORIENTATION/CONSCIOUSNESS: Yes awake HENMT: COMMON NORMALS: oropharynx normal Neck/C-Spine: COMMON NORMALS: no JVD Resp: COMMON NORMALS: normal respiratory effort and clear to auscultation bilaterally AUSCULTATION: clear to auscultation bilaterally Cardio: COMMON NORMALS: no JVD, regular rhythm, S1 normal heart sound present, S2 normal heart sound present and No murmurs present (Cardio) RHYTHM: regular rhythm HEART SOUNDS: S1 normal heart sound present and S2 normal heart sound present GI: COMMON NORMALS: Normal to inspection, nondistended, normoactive bowel sounds present, Soft to palpation and non-tender PALPATION: Yes Soft to palpation Extremity: COMMON NORMALS: no joint enlargement and no pedal edema Neuro: COMMON NORMALS: patient oriented x3 and moves all extremities SENSORIUM/ORIENTATION: Yes alert Skin: COMMON NORMALS: no rashes or lesions noted GENERAL SKIN EXAM: no rashes or lesions noted Urinary Catheter Management: [place]: Cath Placed During This Visit: yes Reason for Continuing Indwelling Catheter: Hospice/Comfort/Palliative Care Urinary Catheter Date of Insertion: 06/19/22 Urinary Catheter Time of Insertion: 12:50 Discharge Data Studies Completed and Pending Completed Studies During Hospitalization Category Date Time Status CT abdomen pelvis w con* [id number] Routine Cat Scan 06/21/22 10:[address] chest w con* [id number] Routine Cat Scan 06/25/22 10:[address] head wo con* [id number] Urgent Cat Scan 06/19/22 11:[address] hip RT wo con* [id number] Routine Cat Scan 06/21/22 10:02 Completed XR chest 1V portable [id number] Routine Exams 06/23/22 10:28 Completed XR chest 1V portable [id number] Stat Exams 06/19/22 11:35 Completed MR head wo con* [id number] Routine MRI 06/23/22 15:58 Completed CV carotid duplex BI* [id number] Stat Ultrasound 06/19/22 15:41 [place] [id number] Routine Ultrasound 06/26/22 11:02 Completed CV. echo complete* [id number] Routine Ultrasound 06/21/22 06:00 Completed US gall bladder [id number] Stat Ultrasound 06/19/22 13:28 Completed US pelvic complete* [id number] Routine Ultrasound 06/25/22 10:25 Completed Pending at discharge Category Date Time Status Sputum Culture and Gram Stain Routine Lab 06/26/22 13:44 Uncollected Urinalysis Routine Lab 06/28/22 18:48 Uncollected Radiology Impressions Head CT 06/19/22 11:40 Impression: Moderate cerebral atrophy. Gallbladder Ultrasound 06/19/22 13:28 Impression: Cholelithiasis. Carotid Doppler Study 06/19/22 15:41 IMPRESSION: 1. Mild calcified plaque in the proximal internal carotid arteries with less than 50% stenosis based on SRU criteria. REFERENCES: SRU CRITERIA. The degree of internal carotid artery stenosis is based on criteria defined by the Society of Radiologists in Ultrasound (SRU). Normal is no stenosis. Mild is less than 50% stenosis. Moderate is 50-69% stenosis. Severe is greater than 69% stenosis to near occlusion. Near occlusion is a markedly narrowed lumen. Total occlusion is no detectable patent lumen. Hip CT 06/21/22 10:02 IMPRESSION: 1. No acute right hip fracture identified. 2. Osseous changes related to old right-sided pubic bone fracture. Abdomen/Pelvis CT 06/21/22 10:04 IMPRESSION: 1. Dense consolidation in the right lung concerning for pneumonia. Findings also concerning for possible right lower lobe pulmonary abscesses. 2. Trace left-sided pleural fluid. 3. No retroperitoneal hematoma identified. 4. Multilevel compression deformities in the lower thoracic and lumbar spine. No comparisons available. Correlate with any focal pain in this region. 5. Osseous changes consistent with old right pubic bone fracture. ADDENDUM: 06/21/22 1148 THIS REPORT CONTAINS FINDINGS THAT MAY BE CRITICAL TO PATIENT CARE. The findings were verbally communicated via telephone conference with AYLIN Nunez at 11:46 AM EMS INSTRUCTOR on 06/21/2022. The findings were acknowledged and understood. Chest X-Ray 06/23/22 10:28 Impression: Satisfactory placement of nasogastric tube. Head MRI 06/23/22 15:58 IMPRESSION: 1. Very limited evaluation of the brain due to significant motion. Exam nearly nondiagnostic for areas of infarct. A large infarct is not present. 2. Moderate to severe small vessel ischemic disease and atrophy. Pelvis Ultrasound 06/25/22 10:25 IMPRESSION: 1. Uterus is not well visualized due to overlying bowel gas. 2. Neither ovary is visualized. 3. No evidence of cystic or solid pelvic mass. Chest CT 06/25/22 10:26 IMPRESSION: 1. Dense consolidation noted of the right lower lobe, consistent with right lower lobe pneumonia. 2. There are areas of decreased attenuation within the consolidated right lower lobe. There are rounded foci of air outside the bronchial tree also noted. The findings are suspicious for pulmonary abscesses, measuring up to 2.3 cm in diameter. This has worsened when compared to 06/21/2022. 3. No significant infiltrate in the left lung. 4. Minimal bilateral pleural effusions. 5. Mild cardiomegaly is noted. 6. Multiple lower thoracic spine compression fractures noted, of undetermined age. This appears unchanged from CT abdomen and pelvis study of 06/21/2022. Laboratory Results WBC 13.3 10^3/uL (4.0-10.0) H 06/30/22 03:20 RBC 3.55 10^6/uL (4.1-5.3) L 06/30/22 03:20 Hgb 10.8 g/dL (11.5-15.3) L 06/30/22 03:20 Hct 34.3 % (37.0-47.0) L 06/30/22 03:20 MCV 96.6 fl (81-99) 06/30/22 03:20 MCH 30.4 pg (28.0-34.0) 06/30/22 03:20 MCHC 31.5 g/dL (30.0-36.0) 06/30/22 03:20 RDW 17.8 % (12.1-15.1) H 06/30/22 03:20 Plt Count 460 10^3/cmm (130-400) H 06/30/22 03:20 MPV 9.4 fL (7.4-10.4) 06/30/22 03:20 Neut % (Auto) 82.1 % 06/30/22 03:20 Lymph % (Auto) 6.6 % 06/30/22 03:20 [place] % (Auto) 7.8 % 06/30/22 03:20 Eos % (Auto) 0.7 % 06/30/22 03:20 Baso % (Auto) 0.5 % 06/30/22 03:20 Neut # (Auto) 10.86 10^3/uL (1.8-7.7) H 06/30/22 03:20 Lymph # (Auto) 0.9 10^3/uL (0.8-4.8) 06/30/22 03:20 [place] # (Auto) 1.0 10^3/uL (0.2-0.9) H 06/30/22 03:20 Eos # (Auto) 0.1 10^3/uL (0.0-0.8) 06/30/22 03:20 Baso # (Auto) 0.1 10^3/uL (0.0-0.1) 06/30/22 03:20 Nucleated RBC % (auto) 0 % 06/30/22 03:20 Total Counted 100 (0-100) 06/23/22 06:39 Atypical Lymphs % 0.0 % (0-5) 06/23/22 06:39 Absolute Neutrophils 20.1 10^3/cmm (1.4-6.5) H 06/23/22 06:39 Segmented Neutrophils 81 % 06/23/22 06:39 Abs Segm Neuts (Man) 17.9 10/cmm (1.6-7.1) H 06/23/22 06:39 Band Neutrophils 10.0 % 06/23/22 06:39 Abs Band Neuts (Man) 2.2 10^3/cmm (0.0-1.2) H 06/23/22 06:39 Absolute Lymphocytes 0.9 10^3/cmm (1.2-3.4) L 06/23/22 06:39 Lymphocytes (Manual) 4 % 06/23/22 06:39 Monocytes (Manual) 3.0 % 06/23/22 06:39 Absolute Monocytes 0.7 10^3/cmm (0.1-0.6) H 06/23/22 06:39 Eosinophils (Manual) 0 % 06/23/22 06:39 Absolute Eosinophils 0.0 10^3/cmm (0.0-0.7) 06/23/22 06:39 Basophils (Manual) 0.0 % 06/23/22 06:39 Absolute Basophils 0.0 10^3/cmm (0.0-0.2) 06/23/22 06:39 Metamyelocytes 2.0 % 06/23/22 06:39 Myelocytes 1.0 % 06/21/22 03:53 Nucleated RBCs # 0.0 /100WBC 06/30/22 03:20 Toxic Granulation 1+ H 06/21/22 03:53 Toxic Vacuolation 1+ H 06/21/22 03:53 Platelet Estimate Normal (Normal) 06/23/22 06:39 Hypochromasia 1+ H 06/23/22 06:39 Macrocytosis 1+ H 06/21/22 03:53 D-Dimer 5.93 ug/mIFEU (0-0.59) H 06/26/22 11:29 Specimen Type Arterial 06/19/22 12:36 Sample Site Brachial, left 06/19/22 12:36 ABG pH 7.52 (7.35-7.45) H 06/19/22 12:36 ABG pCO2 35.1 mmHg (35-45) 06/19/22 12:36 ABG pO2 72.3 mmHg (80.0-100.0) L 06/19/22 12:36 ABG HCO3 28.5 mmol/L (22-26) H 06/19/22 12:36 ABG Base Excess 5.4 mmol/L (-2.0-2.0) H 06/19/22 12:36 Sam Test N/a 06/19/22 12:36 Hematocrit 32.5 % (37-47) L 06/19/22 12:36 O2 Delivery Device Nc 06/19/22 12:36 O2 Liters/Min 4.0 % 06/19/22 12:36 FiO2 36.0 % 06/19/22 12:36 [place] Operator ID Amh 06/19/22 12:36 Sodium 138 mmol/L (136-145) 06/30/22 03:20 Potassium 4.4 mmol/L (3.5-5.1) 06/30/22 03:20 Chloride 105 mmol/L (98-107) 06/30/22 03:20 Carbon Dioxide 25 mmol/L (22-29) 06/30/22 03:20 Anion Gap 12.4 (5-19) 06/30/22 03:20 BUN 10 mg/dL (8-23) 06/30/22 03:20 Creatinine 0.4 mg/dL (0.5-0.9) L 06/30/22 03:20 GFR Calculation Not Reportable 06/30/22 03:20 Glucose 109 mg/dL (65-115) 06/30/22 03:20 Calculated Osmolality 286 mOsm/kg (285-295) 06/30/22 03:20 Lactic Acid 5.4 mmol/L (0.5-2.2) H* 06/19/22 13:08 Lactic Acid (Sepsis) 2.2 mmol/L (0.5-2.2) 06/19/22 16:05 Calcium 8.2 mg/dL (8.5-10.5) L 06/30/22 03:20 Magnesium 1.9 mg/dL (1.7-2.3) 06/22/22 02:32 Total Bilirubin 0.8 mg/dL (0.15-1.2) 06/30/22 03:20 Direct Bilirubin 0.60 mg/dL (0.00-0.30) H 06/23/22 06:39 AST 39 U/L (0-32) H 06/30/22 03:20 ALT 26 U/L (0-33) 06/30/22 03:20 Alkaline Phosphatase 197 U/L (35-105) H 06/30/22 03:20 Total Protein 6.3 g/dL (6.6-8.7) L 06/30/22 03:20 Albumin 2.5 g/dL (3.5-5.2) L 06/30/22 03:20 Globulin 3.8 g/dL (1.3-4.6) 06/30/22 03:20 Vitamin B12 > 2000 pg/mL (232-1245) H 06/22/22 02:32 Folate 17.9 ng/mL (4.8-37.3) 06/22/22 06:39 Procalcitonin 2.85 ng/mL (0-0.5) H 06/22/22 02:32 TSH 2.14 uIU/mL (0.27-4.20) 06/22/22 02:32 Urine Color Yellow (Yellow) 06/22/22 13:52 Urine Appearance Clear (CLEAR) 06/22/22 13:52 Urine pH 5 (5-7) 06/22/22 13:52 Ur Specific [place] 1.015 (1.005-1.030) 06/22/22 13:52 Urine Protein Trace (Negative) 06/22/22 13:52 Urine Glucose (UA) Norm (Normal) 06/22/22 13:52 Urine Ketones Negative (Negative) 06/22/22 13:52 Urine Blood 2+ (Negative) H 06/22/22 13:52 Urine Nitrate Negative (Negative) 06/22/22 13:52 Urine Bilirubin Neg (Negative) 06/22/22 13:52 Urine Urobilinogen Norm mg/dL (Negative) 06/22/22 13:52 Ur Leukocyte Esterase Negative (Negative) 06/22/22 13:52 Urine RBC 0-4 /hpf (0-2) H 06/22/22 13:52 Urine WBC 0-4 /hpf (0-5) H 06/22/22 13:52 Ur Squamous Epith Cells 0-4 /hpf (0-5) H 06/22/22 13:52 Amorphous Sediment 1+ /hpf 06/22/22 13:52 Urine Bacteria Trace /hpf (NONE) 06/22/22 13:52 Urine Mucus Trace /hpf 06/22/22 13:52 Acetaminophen < 5.0 ug/mL (10-30) L 06/19/22 11:30 Hepatitis A IgM Ab Non-reactive (Nonreactive) 06/21/22 09:30 Hep Bs Antigen Non-reactive (Nonreactive) 06/21/22 09:30 Hep B Core IgM Ab Non-reactive (Nonreactive) 06/21/22 09:30 Hepatitis C Antibody Non-reactive (Nonreactive) 06/21/22 09:30 Influenza Type A Ag Negative (Negative) 06/19/22 13:20 Influenza Type B Ag Negative (Negative) 06/19/22 13:20 SARS-CoV-2 Ag (Rapid) negative (Negative) 06/19/22 13:20 Blood Type O Positive 06/25/22 15:09 Rho(D) Type Positive 06/25/22 15:09 Antibody Screen Negative 06/25/22 15:09 Crossmatch See Detail 06/25/22 15:09 Vitals Last Vital Signs Temp 97.5 F L 07/03/22 07:57 Pulse 94 07/03/22 08:40 Resp 18 07/03/22 08:40 BP 152/91 07/03/22 07:57 Pulse Ox 97 07/03/22 07:57 O2 Del Method 07/03/22 08:40 O2 Flow Rate 2 07/01/22 08:00 FiO2 21 06/30/22 13:57 Discharge Plan Discharge Patient Disposition: Home Condition: Stable Prescriptions: New pantoprazole 40 mg Tablet,Delayed Release (Dr/Ec) 40 mg PO BID Qty: 84 0RF mirtazapine 30 mg Tablet 30 mg PO BEDTIME Qty: 90 0RF levofloxacin 750 mg Tablet 750 mg PO DAILY@0600 Qty: 11 0RF metoprolol tartrate 25 mg Tablet 25 mg PO BID@0900,2100 Qty: 180 0RF Continued ondansetron 4 mg tablet,disintegrating 4 mg translingual Q4-5H PRN (Reason: nausea) Qty: 5 0RF Rx Instructions: Dissolve 1 tablet under tongue every 4 hours PRN for nausea morphine concentrate 100 mg/5 mL (20 mg/mL) solution 20 mg sublingual DIRECTED PRN (Reason: pain) 14 Days Qty: 30 0RF Rx Instructions: 0.25-1ml q1H PRN for pain/sob may increase to 0.5-1ml Q1H PRN bisacodyl 10 mg suppository 10 mg SD DAILY PRN (Reason: constipation) Qty: 5 0RF Rx Instructions: 1 suppository per rectum every day PRN for constipation. atropine 1 % drops 4 drp sublingual Q4-5H PRN (Reason: secretions) Qty: 5 0RF Rx Instructions: 4 drops SL q 4 hours PRN for terminal congestion/excessive secretions. lorazepam 2 mg/mL concentrate 2 mg sublingual Q4H PRN (Reason: anxiety) Qty: 30 0RF Rx Instructions: 0.25-1ml q4H PRN. Start 0.25ml, may increase to 0.5ml-1ml q4H loperamide 2 mg Capsule 2 mg PO Q6H PRN (Reason: Diarrhea) Motion Sickness 50 mg Tablet 50 mg PO Q8H PRN (Reason: Nausea) docusate sodium 100 mg Tablet 100 mg PO DAILY PRN (Reason: Constipation) [id number] 2-30-500 mg Tablet 1 tab PO Q4H PRN (Reason: Congestion) [place] Saline 0.65 % Aerosol,[place] 1 spray INTRANASAL BID PRN (Reason: Congestion) Tylenol 325 mg Capsule 325 mg PO QID PRN (Reason: Pain) Calcium 600 + D(3) 600 mg-10 mcg (400 unit) Tablet 1 tab PO BID Discontinued lisinopril-hydrochlorothiazide 10-12.5 mg tablet 1 tab PO DAILY No Action ondansetron 4 mg tablet,disintegrating 4 mg translingual Q4-5H PRN (Reason: nausea) Qty: 5 0RF Rx Instructions: Dissolve 1 tablet under tongue every 4 hours PRN for nausea bisacodyl 10 mg suppository 10 mg SD DAILY PRN (Reason: constipation) Qty: 5 0RF Rx Instructions: 1 suppository per rectum every day PRN for constipation. atropine 1 % drops 4 drp sublingual Q4-5H PRN (Reason: secretions) Qty: 5 0RF Rx Instructions: 4 drops SL q 4 hours PRN for terminal congestion/excessive secretions. lorazepam 2 mg/mL concentrate 2 mg sublingual Q4H PRN (Reason: anxiety) Qty: 30 0RF Rx Instructions: 0.25-1ml q4H PRN. Start 0.25ml, may increase to 0.5ml-1ml q4H morphine concentrate 100 mg/5 mL (20 mg/mL) solution 20 mg sublingual DIRECTED PRN (Reason: pain) 14 Days Qty: 30 0RF Rx Instructions: 0.25-1ml q1H PRN for pain/sob may increase to 0.5-1ml Q1H PRN Discharge Orders: Discharge Order (Routine); Ordered 07/03/22 Ordered By: Aylin Thomas Referrals: Rashawn Reed MD [Primary Care Provider] - 7-10 days Discharge Diet: Full LIquid Discharge Activity: Increase activity as tolerated Patient Instructions: Cognitive Dysfunction, Mirtazapine (By mouth), Levofloxacin (By mouth), Hospice Care (GEN), How to Prevent Pressure Injuries (GEN), Peripheral Artery Disease (GEN), Ischemic Stroke (GEN), Bacterial Pneumonia (GEN), Extended Spectrum Beta-Lactamase (GEN), Anemia (GEN), Bacteremia (GEN), Anorexia in Older Adults (GEN), Urinary Tract Infection in Older Adults (GEN), Aspiration Precautions (GEN), How to Transfer a Person Safely (GEN), How to Help a Person Change Position Safely (GEN), Opioid Safety Activity Restrictions/Additional Instructions: Add protein shakes to meals. Mobilize as tolerating. Maintain full precautions, aspiration precautions. Reposition frequently to prevent pressure sores. Discharge Attestations Time Spent in Discharge Care*: greater than 30 min Quality Metrics Clinical Quality Measures [ No reported AMI, CVA or VTE this stay] Coding Level of Care Code Acute Chg FW DC note Diagnoses Acute cognitive decline R41.89 Sepsis A41.9; R65.20; N17.9 Acute renal failure type: unspecified Sepsis acute organ dysfunction status: with acute organ dysfunction Sepsis type: sepsis due to unspecified organism Severe sepsis acute organ dysfunction type: acute renal failure Severe sepsis shock status: without septic shock Pneumonia J69.0 Pneumonia type: aspiration pneumonia Aspiration pneumonia type: due to vomit Laterality: right Lung location: lower lobe of lung Abscess of lung J85.2 Acute hypernatremia E87.0 Acute anemia D64.9 Aphasia R47.01 Acute kidney injury N17.9 Urinary tract infection N39.0 Hematuria presence: without hematuria Urinary tract infection type: site unspecified Transaminitis R74.01 PAD (peripheral artery disease) I73.9 Goals of care, counseling/discussion Z71.89 Physical deconditioning R53.81
--- NOTE | 2022-07-03 16:06 | PC.NURSE ---
1515 patient discharged to home to family, per EMS patient awake and confused pessonal belongings and discharge paper work with EMS personal. patient in stable condition. Family contacted per medical case manager upon patient departure.
== END 2022-07-03 15:15 | disposition hospice, home (50) | DRG 871 ==
LOC: ER 14:30 → MEDSURG 15:53
PROVIDERS: Student in an Organized Health Care Education/Training Program; Admitting Provider Internal Medicine; Emergency Provider Family Medicine; PCP Family Medicine; Visit Provider Internal Medicine
DX: A41.9 Sepsis, unspecified organism (principal); G93.41 Metabolic encephalopathy; J69.0 Pneumonitis due to inhalation of food and vomit; J85.1 Abscess of lung with pneumonia; J85.0 Gangrene and necrosis of lung; N17.9 Acute kidney failure, unspecified; E87.0 Hyperosmolality and hypernatremia; R47.01 Aphasia; N39.0 Urinary tract infection, site not specified; R65.20 Severe sepsis without septic shock; D64.9 Anemia, unspecified; I73.9 Peripheral vascular disease, unspecified; I10 Essential (primary) hypertension; H57.02 Anisocoria; B95.3 Streptococcus pneumoniae as the cause of diseases classified elsewhere; B96.20 Unspecified Escherichia coli [E. coli] as the cause of diseases classified elsewhere; E87.6 Hypokalemia; E86.0 Dehydration; R31.29 Other microscopic hematuria; K80.20 Calculus of gallbladder without cholecystitis without obstruction; Z79.891 Long term (current) use of opiate analgesic; Z66 Do not resuscitate; R41.89 Other symptoms and signs involving cognitive functions and awareness
CPT/HCPCS: 36415; 36430; 36600; 51702; 70450; 70551; 71045; 71260; 73700; 74177; 76705; 76856; 80048; 80053; 80074; 80076; 80307; 81001; 82274; 82607; 82746; 82803; 83605; 83735; 84145; 84443; 85007; 85014; 85018; 85025; 85378; 86403; 86850; 86900; 86920; 87040; 87077; 87086; 87150; 87186; 87205; 87426; 87449; 87641; 87804; 92507; 92523; 92526; 92610; 93005; 93306; 93880; 93970; 94640; 94664; 94669; 96365; 96366; 96367; 96372; 97110; 97162; 97167; 97530; 97535; 99285; C9113; J0131; J0456; J0692; J0696; J1170; J1630; J1644; J1650; J1756; J1885; J1956; J2185; J3370; J3475; J3480; J3490; J7030; J7050; J7070; J7799; P9016; P9040; Q9967